=== PATIENT | female | born 1945 | race Caucasian/White ===

== ENCOUNTER → 2018-01-06 01:02 | Outpatient (CLI) | payer MEDICARE, SELFPAY ==
--- NOTE | 2018-01-06 08:55 | DI.REPORT_ITS ---
SYMPTOM/DIAGNOSIS: SCREENING Z12.31 BILATERAL SCREENING MAMMOGRAM: Mammograms were interpreted according to the usual protocol including computer analysis with CAD system, tomosynthesis and C view imaging. Comparison is made with exams from 2012 through 2017. The breasts are composed of scattered fibroglandular densities, category B. There are no suspicious masses or suspicious microcalcifications. There has been no significant change. IMPRESSION: Category 1-B, negative mammogram. Routine screening is recommended. [facility] ASSESSMENT OF FINDINGS: Negative. Category 1. Patient will receive a letter notifying them of these results. BI-RADS category B. There are scattered areas of fibroglandular density.
== END ==
PROVIDERS: PCP Family Medicine; Visit Provider Family Medicine
DX: Z12.31 Encounter for screening mammogram for malignant neoplasm of breast (principal)
CPT/HCPCS: 77063; 77067

== ENCOUNTER 2018-11-11 10:36 | Outpatient (CLI) | payer MEDICARE, OTHER, SELFPAY ==
[2018-11-11 13:15] LABS: ALT 28 U/L (12-78); AST 34 U/L (15-37); Albumin 3.5 g/dL (3.4-5.0); Alkaline Phosphatase 106 U/L (46-116); Anion Gap 9.6 mmol/L (3-11); BUN 18 mg/dL (7-18); Bilirubin, Total 0.6 mg/dL (0.2-1.0); CO2 26.4 mmol/L (21.0-32.0); Calcium 8.7 mg/dL (8.5-10.1); Chloride 109 mmol/L (98-107); Glucose 73 mg/dL (70-100); Potassium 4.1 mmol/L (3.5-5.1); Sodium 145 mmol/L (136-145); TSH (W/Ref FT4) 0.95 uIU/mL (0.358-3.74); Total Protein 6.3 g/dL (6.4-8.2)
[2018-11-11 14:24] LABS: Calculated LDL 104; Cholesterol 172 mg/dL (50-200); HDL Cholesterol 55 mg/dL (40-60); Triglyceride 66 mg/dL (30-150)
== END 2018-11-11 10:56 ==
PROVIDERS: PCP Family Medicine; Visit Provider Family Medicine
DX: E03.9 Hypothyroidism, unspecified (principal); I10 Essential (primary) hypertension
CPT/HCPCS: 36415; 80053; 80061; 83721; 84443

== ENCOUNTER 2019-01-07 06:50 | Outpatient (CLI) | payer MEDICARE, OTHER, SELFPAY ==
--- NOTE | 2019-01-07 09:00 | DI.MAMMO_ITS ---
SYMPTOM/DIAGNOSIS: SCREENING, Z12.31 MAMMOGRAMS: Mammograms were interpreted according to the usual protocol including computer analysis with CAD system, tomosynthesis and C view imaging. The breasts are of moderate density with fairly symmetrical distribution of fibroglandular tissue. No dominant mass or clumped microcalcification is identified in either breast. The current examination is compared with previous examinations including 12/2017 and there has been no gross interval change in appearance in comparison with the previous studies. CONCLUSION: No specific evidence of malignancy at this time. Routine screening examinations are suggested at yearly intervals in this age group according to the ACS/ACR guidelines. Category 1. Breast density, Category B. [facility] ASSESSMENT OF FINDINGS: Negative. Category 1. Patient will receive a letter notifying them of these results. BI-RADS category B. There are scattered areas of fibroglandular density.
== END 2019-01-07 07:10 ==
PROVIDERS: PCP Family Medicine; Visit Provider Family Medicine
DX: Z12.31 Encounter for screening mammogram for malignant neoplasm of breast (principal)
CPT/HCPCS: 77063; 77067

== ENCOUNTER 2019-11-11 02:37 | Outpatient (CLI) | payer MEDICARE, OTHER, SELFPAY ==
[2019-11-11 12:45] LABS: ALT 23 U/L (14-59); AST 33 U/L (15-37); Albumin 3.7 g/dL (3.4-5.0); Alkaline Phosphatase 98 U/L (46-116); Anion Gap 7.3 mmol/L (3-11); BUN 18 mg/dL (7-18); Bilirubin, Total 0.8 mg/dL (0.2-1.0); CO2 28.7 mmol/L (21.0-32.0); CREATININE 0.99 mg/dL (0.55-1.02); Calcium 8.7 mg/dL (8.5-10.1); Calculated LDL 96 mg/dL (<100); Chloride 108 mmol/L (98-107); Cholesterol 167 mg/dL (<200); Estimated GFR 54.68 (mL/min/1.73m2); Glucose 71 mg/dL (74-106); HDL Cholesterol 51 mg/dL (40-60); Sodium 144 mmol/L (136-145); TSH (W/Ref FT4) 1.14 uIU/mL (0.36-3.74); Total Protein 6.2 g/dL (6.4-8.2); Triglyceride 102 mg/dL (<150)
== END 2019-11-11 02:57 ==
PROVIDERS: PCP Family Medicine; Visit Provider Nurse Practitioner
DX: I25.10 Atherosclerotic heart disease of native coronary artery without angina pectoris (principal); I48.91 Unspecified atrial fibrillation; L98.9 Disorder of the skin and subcutaneous tissue, unspecified
CPT/HCPCS: 36415; 80053; 80061; 84443

== ENCOUNTER 2020-01-14 02:24 | Outpatient (CLI) | payer MEDICARE, OTHER, SELFPAY ==
--- NOTE | 2020-01-14 07:45 | DI.DEXA_ITS ---
EXAM: XR DEXA BONE DENSITY W/WO CHEMA CLINICAL HISTORY: osteoporosis,m81.0 TECHNIQUE: COMPARISON: No exams were available for comparison FINDINGS: DEXA scan was performed according to the usual protocol. Please see the accompanying data sheets. Findings for left hip scanning are T-score 0.6 with left femoral neck T-score 0.1. Prior scan of November 2007 showed left hip T-score 0.9. Lumbar spine scanning shows T-score 1.0, prior study of 2007 showed lumbar T-score 0.3. Left forearm scanning shows T-score -1.7. IMPRESSION: Findings consistent with osteopenia according to the WHO criteria. The lateral vertebral scanogram s hows no evidence of a vertebral compression fracture. RADIATION DOSE DELIVERED: Total DLP
--- NOTE | 2020-01-14 16:17 | DI.MAMMO_ITS ---
EXAM: MAMMO SCREENING CLINICAL HISTORY: screening,z12.39 TECHNIQUE: Mammograms were interpreted according to the usual protocol including computer analysis w [employer] CAD system, tomosynthesis and C-view imaging. COMPARISON: FINDINGS: Breasts are of moderate density with fairly symmetrical distribution of fibroglandular tissue. No do minant mass or clumped microcalcification is identified in either breast. The current examination is compared with prior studies including December 2018 and there has been no gross interval change in remy earance in comparison with the prior studies. IMPRESSION: No specific evidence of malignancy at this time. Routine screening examinations are suggested at yea rly intervals in this age group according to the ACS ACR guidelines. BI-RADS Category 1 - Negative Breast Density - Category B - Scattered areas of fibroglandular density
== END 2020-01-14 02:44 ==
PROVIDERS: PCP Family Medicine; Visit Provider Family Medicine
DX: Z12.31 Encounter for screening mammogram for malignant neoplasm of breast (principal); M85.88 Other specified disorders of bone density and structure, other site; M85.832 Other specified disorders of bone density and structure, left forearm
CPT/HCPCS: 77063; 77067; 77080

== ENCOUNTER 2020-11-17 10:07 | Outpatient (REF) | payer MEDICARE, OTHER, SELFPAY ==
[2020-11-17 13:10] LABS: ALT 30 U/L (14-59); AST 36 U/L (15-37); Albumin 3.8 g/dL (3.4-5.0); Alkaline Phosphatase 104 U/L (46-116); Anion Gap 10.9 mmol/L (3-11); BUN 20 mg/dL (7-18); CO2 24.1 mmol/L (21.0-32.0); CREATININE 0.9 mg/dL (0.55-1.02); Calcium 8.7 mg/dL (8.5-10.1); Chloride 109 mmol/L (98-107); Glucose 86 mg/dL (74-106); Sodium 144 mmol/L (136-145); TSH (W/Ref FT4) 1.41 uIU/mL (0.36-3.74); Total Protein 6.5 g/dL (6.4-8.2)
== END 2020-11-17 10:08 | disposition home or self-care (01) ==
LOC: LBN 10:07
PROVIDERS: PCP Family Medicine; Visit Provider Family Medicine
DX: E03.9 Hypothyroidism, unspecified (principal); I48.91 Unspecified atrial fibrillation
CPT/HCPCS: 80053; 84443

== ENCOUNTER 2021-06-16 20:01 | Emergency (ER) | payer MEDICARE, OTHER, SELFPAY ==
[2021-06-16 20:14] VITALS: BP 139/55; PULSE 64; RESP 19; TEMP 36.5; O2SAT 97
--- NOTE | 2021-06-16 20:15 | DI.CT_ITS ---
Exam(s) CT NECK WO EXAM: CT NECK WO CLINICAL HISTORY: FB throat, swallowed plastic shoe stitcher.. TECHNIQUE: Imaging Protocol: Axial computed tomography images with coronal and sagittal reformatted images were created and reviewed CONTRAST MATERIAL: Intravenous: Noncontrast Oral: no COMPARISON: CT CERVICAL SPINE WITHOUT CONTRA from 09/08/2017 FINDINGS: Images include from above the sinuses through the mid to distal esophagus. Parotids/submandibular normal. Enlarged nodular thyroid. Lymphadenopathy: There is scattered lymph nodes seen along the level one to level three all measurin g less than 8 mm in short axis diameter which are physiologic in nature. Mildly dilated distal esopha gianna with some fluid. Bones: Degenerative changes throughout. Soft tissues: No foreign body visible. The floor the mouth is unremarkable. The epiglottis and vocal cords are within normal limits. Images through both lung apices are unremarkable. IMPRESSION: No visible foreign body. Enlarged multinodular thyroid. RADIATION DOSE DELIVERED: 743.2mGy.cm Total DLP DATA REPOSITORY: All CT scans at this facility are submitted to the National Radiology Data Registry (NRDR) Dose Index Registry (DIR) with the [employer] (ACR). RADIATION OPTIMIZATION: All CT scans at this facility use at least one of these dose optimization te chniques: automated exposure control; mA and/or kV adjustment per patient size (includes targeted exa ms where dose is matched to clinical indication); or iterative reconstruction.
--- NOTE | 2021-06-16 20:24 | ED.GENADUL_ITS ---
Discharge Plan Disposition Patient Disposition: HOME Condition: Improving Discharge Details Clinical Impression: Foreign body of throat Primary Care Provider: Jennifer Gagnon ED Provider: Maxwell Singleton Home Meds and New Rx's Prescriptions: Continued oxybutynin chloride 10 mg tablet extended release 24hr 10 mg PO DAILY Qty: 90 RF: 6 atorvastatin 10 mg tablet 10 mg PO QPM Qty: 90 RF: 4 levothyroxine [Synthroid] 50 mcg tablet 50 mcg PO DAILY Qty: 90 RF: 4 metoprolol succinate [Toprol XL] 50 mg tablet extended release 24 hr 50 mg PO DAILY Qty: 90 RF: 4 omeprazole 20 mg capsule,delayed release(DR/EC) 20 mg PO DAILY Qty: 90 RF: 12 aspirin 81 MG tablet,delayed release (DR/EC) 81 mg PO DAILY RF: 0 nitroglycerin [Nitrostat] 0.4 MG tablet, sublingual 0.4 mg Sublingual DIRECTED Qty: 25 RF: 4 meclizine 25 MG tablet 25 mg PO TID PRNQty: 90 RF: 12 Discharge Instructions Instructions: Esophageal Foreign Body (ED) Additional Instructions: Please observe your stool for passage of the foreign body. May resume a regular diet. Return if you develop a fever, vomiting, abdominal bloating or severe pain, or any other acute concerns. Medical Decision Making 76-year-old female was performing chika and using a stitching machine feeder or offbearer. She swallowed the plastic 6 marker and now feels it stuck in her upper throat. She has not been drooling. No difficulty breathing. She has otherwise been well. She she will have a question of rhinorrhea and possible exposure to Covid. Therefore a screening send out COVID-19 test was obtained. Patient given fluids by mouth. Referred for noncontrast CT imaging of the neck. No retained foreign body is appreciated. Case discussed with Dr. Mcbride. She recommends oral lidocaine, ongoing observation, return as needed for worsening. Likely the patient will pass the foreign body without difficulty. HPI General Mode of arrival: ambulatory . Date/Time Provider Initiated Documentation: 06/16/21 20:07 . Limitations to Documentation: no limitations . Information obtained by: patient . History of Present Illness 76 year old F presents to the emergency department with the chief complaint of Foreign body throat, described as moderate, Quality is described as dull, Patient reports no radiation. Patient started experiencing this hour(s) and it has been constant. No relieving factors improve symptom(s), No exacerbating factors reported . Patient notes denies nausea/vomiting and shortness of breath. Patient did receive the following treatments prior to arrival, none Related Data Home Medications Medication Instructions Recorded Confirmed aspirin 81 mg PO DAILY tab-cap 10/10/12 06/16/21 nitroglycerin [Nitrostat] 0.4 mg SUBLINGUAL DIRECTED #25 01/12/13 06/16/21 tab-cap meclizine 25 mg PO TID PRN #90 tab-cap 11/07/17 06/16/21 oxybutynin chloride 10 mg 10 mg PO DAILY #90 tab 11/17/20 06/16/21 tablet,extended release 24 hr atorvastatin 10 mg tablet 10 mg PO QPM #90 tab 05/23/21 06/16/21 levothyroxine 50 mcg tablet 50 mcg PO DAILY #90 tab-cap 05/23/21 06/16/21 metoprolol succinate 50 mg 50 mg PO DAILY #90 tab-cap 05/23/21 06/16/21 tablet,extended release 24 hr omeprazole 20 mg capsule,delayed 20 mg PO DAILY #90 tab-cap 05/23/21 06/16/21 release Previous Rx's Medication Instructions Recorded oxybutynin chloride 10 mg 10 mg PO DAILY #90 tab 11/17/20 tablet,extended release 24 hr atorvastatin 10 mg tablet 10 mg PO QPM #90 tab 05/23/21 levothyroxine 50 mcg tablet 50 mcg PO DAILY #90 tab-cap 05/23/21 metoprolol succinate 50 mg 50 mg PO DAILY #90 tab-cap 05/23/21 tablet,extended release 24 hr omeprazole 20 mg capsule,delayed 20 mg PO DAILY #90 tab-cap 05/23/21 release Allergies Allergy/AdvReac Type Severity Reaction Status Date / Time adhesive AdvReac Intermediate flipped Verified 06/16/21 20:16 out pain meds AdvReac Uncoded 06/16/21 20:16 General Stated Complaint: ThroatFB IVANNA: 3 Review of Systems Narrative: 6 systems reviewed and otherwise negative PFSH All Active Problems (Updated 06/16/21 @ 21:27 by Maxwell Singleton MD) Foreign body of throat (Acute) Weight loss (Acute) Peptic reflux disease (Chronic 09/10/13) Incontinence in female (Chronic 09/22/15) UNABLE TO TOLERATE MEDICATION Hypothyroidism (Chronic) H/O goiter Atrial fibrillation (Chronic) paroxysmal; controlled on dilt.; advised no coumadin or EPS 03/25 Atherosclerosis of lower [place] coronary artery (Chronic) NV at age 31 (?OC's); echo 03/25 ([facility]) EF 65%; MPI 2003-neg/2006-neg. 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 Seeing Ortiz Skin lesions ST elevation (STEMI) myocardial infarction Unspecified fall, subsequent encounter 09/12/17 Vertigo RECURRENT Surgical History Appendectomy History of appendectomy Hx of appendectomy S/P tonsillectomy Status post tonsillectomy Tonsillectomy Family History Mother , 78 Heart disease Mental disorder [place]ZHEIMERS Stroke Father , 93 Heart disease Stroke Sister , 81 Cancer Brother , 72 No problems noted. Maternal Grandfather No problems noted. Paternal Grandfather No problems noted. Maternal Grandmother Heart disease Paternal Grandmother Cancer Brother Asthma Daughter No problems noted. Daughter Substance abuse Depression Sister No problems noted. Sister Throat cancer Social History (Updated 11/19/20 @ 10:10 by Agatha Peralta) Smoking/Tobacco Use Status: Never Second Hand Exposure: Yes Smoking risk assessment performed?: Yes Alcohol Intake: never Drug use: Never Substance use type: does not use Caregiver/Support person: No Household members: spouse Communication Needs: None Do you need help understanding health information?: Rarely Pets and animals: Yes Pets and animals: cat(s) Sexually active: No Do you think of yourself as: straight/heterosexual Current gender identity: female What is your relationship status?: How often do you attend orthodoxy or restorationist services?: 1-3 times per year Panel score (0-1 are the most socially isolated patients): 1 What type of physical activity do you participate in: walking Duration: 60-90 minutes/day Frequency: 5-6 times per week Special daniel needs: No Seatbelt use: always Drive intox or ride w/intox tram driver: No Do you feel safe at home: Yes Do you feel safe in your relationship?: Yes Exam Narrative Exam Narrative: GEN: awake, alert, oriented 3. Pleasant, well groomed, interactive. HEAD: Normocephalic, atraumatic ENT: Mucous membranes moist, oropharynx unremarkable, External ear exam unremarkable EYES: PERRL, EOMI NECK: Full ROM, no DMITRIY, no menigismus CHEST/RESP: Nontender, clear to auscultation bilateral, no wheeze/rhonchi/rales CARDIOVASCULAR: RRR, no murmur, rub tayler. 2+ Rad pulse bilateral ABDOMEN: Soft, nontender, no mass. +Bowel sounds EXT: Full ROM, no edema, no rash Neuro: Grossly normal neurologic exam, conversant, interactive. Psych: Speech fluent, thoughts congruent, affect normal Course Vital Signs Vital signs: Vital Signs Temperature 36.5 C 06/16/21 20:14 Pulse 64 06/16/21 20:14 Respiratory Rate 19 06/16/21 20:14 Blood Pressure 139/55 L 06/16/21 20:14 Pulse Oximetry 97 06/16/21 20:14 Temperature 36.5 C 06/16/21 20:14 Temperature Source Temporal Artery Scan 06/16/21 20:14 Pulse 64 06/16/21 20:14 Respiratory Rate 19 06/16/21 20:14 Respiratory Effort Non-Labored 06/16/21 20:17 Respiratory Pattern Normal 06/16/21 20:17 Blood Pressure 139/55 L 06/16/21 20:14 Pulse Oximetry 97 06/16/21 20:14 Pain Level 0 06/16/21 20:14
--- NOTE | 2021-06-16 21:22 | DI.VRAD_ITS ---
PROCEDURE INFORMATION: Exam: CT Neck Without Contrast Exam date and time: 06/16/2021 8:30 PM Age: 76 years old Clinical indication: Patient HX: Fb throat, swallowed a plastic hemmer chainstitch TECHNIQUE: Imaging protocol: Computed tomography images of the neck without contrast. Radiation optimization: All CT scans at this facility use at least one of these dose optimization techniques: automated exposure control; mA and/or kV adjustment per patient size (includes targeted exams where dose is matched to clinical indication); or iterative reconstruction. COMPARISON: CT CERVICAL SPINE WITHOUT CONTRA 09/08/2017 10:43 AM FINDINGS: Limitations: Full evaluation is suboptimal without intravenous contrast. Orbital cavity: Status post bilateral lens replacement surgery. Nasopharynx: Unremarkable. Oropharynx: Unremarkable. No significant tonsillar enlargement. Hypopharynx: Unremarkable. Larynx: Unremarkable. Normal epiglottis. Retropharyngeal space: Unremarkable. Submandibular/Parotid glands: Normal. Glands are normal in size. Thyroid: Diffuse enlargement of the thyroid gland, with somewhat ill-defined nodular component of the posteroinferior right lower lobe extending to the upper mediastinum measuring up to 2.0 cm. Lymph nodes: Unremarkable. No lymphadenopathy. Trachea: Visualized trachea is unremarkable. Lungs: Unremarkable as visualized. Esophagus: The visualized thoracic esophagus is mildly patulous and partially fluid-filled. A foreign body is not identified, however the presence of fluid in the esophagus may obscure a non radiopaque foreign body. Bones/joints: Diffuse degenerative changes of the cervical spine. No aggressive osseous lesion is identified. Vasculature: Calcified plaque at the left internal carotid artery origin. Soft tissues: There is no retained foreign body in the neck identified. IMPRESSION: 1. No retained foreign body is appreciated. 2. Diffuse thyroid enlargement, with multinodular appearance. Further evaluation with nonemergent ultrasound is recommended. Dictated and Authenticated by: Isael Jj MD. Ordering:MARIE Arreola MD
[2021-06-16 21:42] VITALS: BP 139/55; PULSE 64; O2SAT 97
[2021-06-18 12:15] LABS: COVID-19 RT-PCR UVMMC Result Negative (Negative)
== END 2021-06-16 21:42 | disposition home or self-care (01) ==
PROVIDERS: Emergency Provider Emergency Medicine; PCP Family Medicine
DX: T17.298A Other foreign object in pharynx causing other injury, initial encounter (principal); X58.XXXA Exposure to other specified factors, initial encounter; J34.89 Other specified disorders of nose and nasal sinuses; Z20.822 Contact with and (suspected) exposure to COVID-19
CPT/HCPCS: 99283; 99284; U0003; U0005; 70490

== ENCOUNTER → 2021-09-15 16:22 | Outpatient (CLI) | payer MEDICARE, OTHER, SELFPAY ==
--- NOTE | 2021-09-15 12:30 | DI.CT_ITS ---
Exam(s) CT ABDOMEN PELVIS W EXAM: CT ABDOMEN PELVIS W CLINICAL HISTORY: RLQ abd discomfort, recurrent diarrhea episodes R19.7 R10.31. TECHNIQUE: Imaging Protocol: Axial computed tomography images with coronal and sagittal reformatted images were created and reviewed CONTRAST MATERIAL: Intravenous: Omnipaque 350 Contrast volume:100 ml Oral: yes COMPARISON: No exams were available for comparison FINDINGS: ABDOMEN: Lung Bases: Normal where visualized. Heart is enlarged. Contrast in lower esophagus which may indica te reflux. Liver: Normal density. No measurable mass. Gallbladder and biliary tract: No radiodense calculus or dilation. Pancreas: Normal density, no abnormal calcifications or inflammatory process. Spleen: Normal. Kidneys: Normal size, contour and axis. No radiodense stones or obstructive uropathy. No masses seen. Adrenal glands: No masses seen. Abdominal Aorta: Abdominal portion non-dilated. Mild atherosclerotic changes. No hernias abuts a PELVIS: Bladder: No gross wall thickening. No calculi.No focal mass. Bowel: Normal quantity of stool. Diverticulosis. No evidence of diverticulitis. No obstruction or bowel wall thickening. Appendix not seen.. Peritoneal cavity: No ascites, collection or mesenteric inflammatory response. Bones: Bilateral L5 spondylolysis and mild L5-S1 spondylolisthesis. Severe degenerative disc changes at at multiple levels. Scoliosis. Reproductive organs: Within normal limits. Lymph nodes: Unremarkable. Impression: Diverticulosis. No evidence of diverticulitis. Contrast in the distal esophagus could indicate gastroesophageal reflux. RADIATION DOSE DELIVERED: 898.44mGy.cm Total DLP DATA REPOSITORY: All CT scans at this facility are submitted to the National Radiology Data Registry (NRDR) Dose Index Registry (DIR) with the [employer] (ACR). RADIATION OPTIMIZATION: All CT scans at this facility use at least one of these dose optimization te chniques: automated exposure control; mA and/or kV adjustment per patient size (includes targeted exa ms where dose is matched to clinical indication); or iterative reconstruction.
[2021-09-15 13:55] LABS: Abs Immature Grans 0.01 10^3/uL (0.0-0.06); Absolute Basophil Count 0.06 10^3/uL (0.0-0.2); Absolute Eosinophil Count 0.16 10^3/uL (0.0-0.7); Absolute Lymphocyte Count 1.64 10^3/uL (1.2-3.4); Absolute Monocyte Count 0.47 10^3/uL (0.1-0.8); Absolute Neutrophil Count 2.67 10^3/uL (1.2-6.7); Basophils % 1.2; Eosinophils % 3.2; HCT 39.6 % (36.0-46.0); HGB 13.1 g/dL (11.2-15.7); Immature Grans % 0.2; Lymphocytes % 32.7; MCH 30.4 pg (27.0-33.0); MCHC 33.1 % (32.0-36.0); MCV 92 fL (80-95); MPV 9.5 fL (8.0-11.0); Monocytes % 9.4; Neutrophils % 53.3; Platelet Count 163 10^3/uL (130-400); RBC 4.31 10^6/uL (3.93-5.22); RDW 12.9 % (11.7-14.6); RDW-SD 43.2 fL; WBC 5.01 10^3/uL (4.4-10.8)
[2021-09-15 14:16] LABS: ALT 26 U/L (14-59); AST 30 U/L (15-37); Albumin 3.8 g/dL (3.4-5.0); Alkaline Phosphatase 110 U/L (46-116); Anion Gap 8.5 mmol/L (3-11); BUN 16 mg/dL (7-18); Bilirubin, Total 0.9 mg/dL (0.2-1.0); CO2 26.5 mmol/L (21.0-32.0); Calcium 8.7 mg/dL (8.5-10.1); Chloride 107 mmol/L (98-107); Estimated GFR 53.76 (mL/min/1.73m2); Glucose 89 mg/dL (74-106); Lipase 83 U/L (73-393); Potassium 3.9 mmol/L (3.5-5.1); Sodium 142 mmol/L (136-145); TSH (W/Ref FT4) 1.31 uIU/mL (0.36-3.74); Total Protein 6.9 g/dL (6.4-8.2)
[2021-09-15 14:27] LABS: Calculated LDL 103 mg/dL (<100); Cholesterol 182 mg/dL (<200); HDL Cholesterol 59 mg/dL (40-60); Triglyceride 102 mg/dL (<150)
[2021-09-15] MEDS: Omnipaque 350 MG/ML 50 ML BTL PO (14:29)
[2021-09-15 15:28] LABS: Bilirubin Negative (Negative); Blood Negative (Negative); Clarity Clear (Clear); Glucose Negative (Negative); Ketones Negative (Negative); Leukocyte Esterase Trace (Negative); Nitrite Negative (Negative); Urobilinogen 0.2 EU/dL (Up TO 0.2); pH 5.5 (5-8)
[2021-09-15] MEDS: Omnipaque 350 MG/ML 100 ML BTL IV (15:31)
[2021-09-15 15:34] LABS: Bacteria Negative HPF (Negative); C & S Indicated? No; Casts Negative LPF (Negative); Crystals Negative HPF (Negative); Epithelial Cells Few HPF (Negative); Mucus Negative (Negative); RBC 0-2 HPF (0-2)
== END ==
PROVIDERS: PCP Family Medicine; Visit Provider Family Medicine
DX: R10.31 Right lower quadrant pain (principal); R19.7 Diarrhea, unspecified; E03.9 Hypothyroidism, unspecified; I25.10 Atherosclerotic heart disease of native coronary artery without angina pectoris; I48.91 Unspecified atrial fibrillation; R30.0 Dysuria; K21.9 Gastro-esophageal reflux disease without esophagitis; K57.30 Diverticulosis of large intestine without perforation or abscess without bleeding
CPT/HCPCS: 80053; 80061; 83690; 74177; 81003; 81015; 84443; 85025; J3490; Q9967

== ENCOUNTER → 2021-10-02 02:22 | Outpatient (CLI) | payer MEDICARE, OTHER, SELFPAY ==
--- NOTE | 2021-10-02 07:15 | DI.RAD_ITS ---
Exam(s) XR KNEE RT 3V AP,LAT,ALFREDITO EXAM: XR KNEE RT 3V AP,LAT,ALFREDITO CLINICAL HISTORY: right knee pain,m25.561. TECHNIQUE: 2D digital imaging was performed of the right knee. Three views obtained. AP, lateral an d PA tunnel views were obtained. COMPARISON: No previous for comparison. FINDINGS: BONES: No acute fracture is present. No bony destructive lesion is seen. JOINTS: Moderate narrowing in the medial femoral tibial joint space is noted. There is periarticular spurring in all 3 joint compartments. No joint effusion is seen. SOFT TISSUE: Normal. IMPRESSION: Mild degenerative changes of the right knee. DATA REPOSITORY: RADIATION DOSE DELIVERED:
== END ==
PROVIDERS: PCP Family Medicine; Visit Provider Family Medicine
DX: M25.561 Pain in right knee (principal)
CPT/HCPCS: 73562

== ENCOUNTER 2021-10-14 08:41 | Outpatient (REF) | payer MEDICARE, OTHER, SELFPAY ==
[2021-10-14 09:52] LABS: C Diff PCR Negative (Negative)
== END 2021-10-14 08:42 | disposition home or self-care (01) ==
LOC: LBN 08:41
PROVIDERS: PCP Family Medicine; Visit Provider Family Medicine
DX: R19.7 Diarrhea, unspecified (principal)
CPT/HCPCS: 87329; 87493

== ENCOUNTER 2022-07-04 01:33 | Outpatient (CLI) | payer MEDICARE, SELFPAY ==
[2022-07-04 13:01] LABS: ALT 18 U/L (14-59); AST 30 U/L (15-37); Albumin 3.6 g/dL (3.4-5.0); Alkaline Phosphatase 116 U/L (46-116); Anion Gap 7.3 mmol/L (3-11); BUN 18 mg/dL (7-18); Bilirubin, Total 0.7 mg/dL (0.2-1.0); CO2 29.7 mmol/L (21.0-32.0); Calcium 8.9 mg/dL (8.5-10.1); Chloride 106 mmol/L (98-107); Estimated GFR 57.66 (mL/min/1.73m2); Glucose 92 mg/dL (74-106); Potassium 3.8 mmol/L (3.5-5.1); Sodium 143 mmol/L (136-145); TSH (W/Ref FT4) 1.62 uIU/mL (0.36-3.74); Total Protein 6.8 g/dL (6.4-8.2); Vitamin B12 355 pg/mL (193-986)
== END 2022-07-04 01:34 | disposition home or self-care (01) ==
LOC: LOS 01:34
PROVIDERS: PCP Family Medicine; Visit Provider Family Medicine
DX: E03.9 Hypothyroidism, unspecified (principal); G62.9 Polyneuropathy, unspecified
CPT/HCPCS: 36415; 80053; 82607; 84443

== ENCOUNTER 2023-07-12 01:04 | Outpatient (CLI) | payer MEDICARE, SELFPAY ==
[2023-07-12 12:41] LABS: ALT 22 U/L (14-59); AST 28 U/L (15-37); Albumin 3.5 g/dL (3.4-5.0); Alkaline Phosphatase 103 U/L (46-116); BUN 20 mg/dL (7-18); CREATININE 1.1 mg/dL (0.55-1.02); Chloride 107 mmol/L (98-107); Estimated GFR 51.11 (mL/min/1.73m2); Glucose 106 mg/dL (74-106); Potassium 3.9 mmol/L (3.5-5.1); Sodium 144 mmol/L (136-145); TSH (W/Ref FT4) 1.67 uIU/mL (0.36-3.74); Total Protein 6.8 g/dL (6.4-8.2)
== END 2023-07-12 01:05 | disposition home or self-care (01) ==
LOC: LOS 01:04
PROVIDERS: PCP Family Medicine; Visit Provider Family Medicine
DX: I10 Essential (primary) hypertension (principal)
CPT/HCPCS: 36415; 80053; 84443

== ENCOUNTER 2024-03-10 13:34 | Outpatient (CLI) | payer MEDICARE, SELFPAY ==
--- NOTE | 2024-03-10 13:30 | RT.EKG_ITS ---
APPROVED REPORT Exam: Resting ECG Reason for Exam: Palpitations Patient Location: O HR:47 bpm ECG Measurements Heart Rate 47 AXIS [place] 182 P 44 QRSd 92 QRS 12 QT 486 T 47 QTc 430 Conclusion Sinus bradycardia...rate< 50 Borderline T abnormalities, anterior leads...T flat or neg, V2-V4
== END 2024-03-10 13:35 | disposition home or self-care (01) ==
LOC: DI.CM 13:35
PROVIDERS: PCP Family Medicine; Visit Provider Family Medicine
DX: R00.2 Palpitations (principal)
CPT/HCPCS: 93010

== ENCOUNTER 2024-03-16 13:10 | Outpatient (CLI) | payer MEDICARE, SELFPAY ==
--- NOTE | 2024-04-02 09:24 | W.CARDEVENT ---
Date of service: 04/02/24 Time of Service: 09:24 Cardiac Event Recorder Referring Provider:: Jennifer Gagnon Indications:: Palpitations Cardiac Event Note: This is a cardiac event monitor. Patient was monitored for 10 days and 6 hours Predominant rhythm was sinus with an average heart rate of 60. Minimum was 42, maximum 105 There were rare ventricular ectopic beats, several couplets, rare triplets There were occasional atrial premature beats. Self-limited atrial runs occurred. The longest of these was 14 beats in duration There was no atrial fibrillation no high-grade AV block, no pauses greater than 3 seconds Symptoms were reported. These correlated with sinus rhythm in the 70s and 80s, also sinus tachycardia 105/min
== END 2024-03-16 13:11 | disposition home or self-care (01) ==
LOC: CARDOPNVT 13:10
PROVIDERS: PCP Family Medicine; Visit Provider Family Medicine
DX: R00.2 Palpitations (principal); I49.1 Atrial premature depolarization
CPT/HCPCS: 93246

== ENCOUNTER 2024-03-16 15:15 | Outpatient (CLI) | payer MEDICARE, SELFPAY ==
[2024-03-16 14:18] LABS: HCT 40.6 % (36.0-46.0); HGB 13.2 g/dL (11.2-15.7); MCH 30.2 pg (27.0-33.0); MCHC 32.5 % (32.0-36.0); MCV 93 fL (80-95); MPV 9.4 fL (8.0-11.0); Platelet Count 152 10^3/uL (130-400); RBC 4.37 10^6/uL (3.93-5.22); RDW 12.8 % (11.7-14.6); RDW-SD 44.2 fL
[2024-03-16 15:15] LABS: ALT 20 U/L (14-59); AST 29 U/L (15-37); Albumin 3.5 g/dL (3.4-5.0); Alkaline Phosphatase 120 U/L (46-116); Anion Gap 8.6 mmol/L (3-11); BUN 21 mg/dL (7-18); Bilirubin, Total 0.81 mg/dL (0.2-1.0); CO2 29.4 mmol/L (21.0-32.0); Chloride 108 mmol/L (98-107); Estimated GFR 57.31 (mL/min/1.73m2); Glucose 95 mg/dL (74-106); Potassium 4.3 mmol/L (3.5-5.1); Sodium 146 mmol/L (136-145); TSH (W/Ref FT4) 1.14 uIU/mL (0.36-3.74); Total Protein 6.8 g/dL (6.4-8.2); Vitamin B12 279 pg/mL (193-986)
== END 2024-03-16 15:16 | disposition home or self-care (01) ==
LOC: LBO 15:17
PROVIDERS: PCP Family Medicine; Visit Provider Family Medicine
DX: K21.9 Gastro-esophageal reflux disease without esophagitis (principal); I10 Essential (primary) hypertension; E03.9 Hypothyroidism, unspecified; R00.2 Palpitations
CPT/HCPCS: 36415; 80053; 85027; 93246; 82607; 84443

== ENCOUNTER 2024-05-08 08:26 | Emergency (ER) | payer MEDICARE, SELFPAY ==
[2024-05-08] VITALS (25 sets, daily range): BP systolic 102–144; BP diastolic 30–61; PULSE 55–73; RESP 12–35; TEMP 36.2–36.4; O2SAT 95–99
--- NOTE | 2024-05-08 08:15 | RT.EKG_ITS ---
APPROVED REPORT Exam: Resting ECG Reason for Exam: Palpatations Patient Location: E HR:64 bpm ECG Measurements Heart Rate [address] 195 P 36 QRSd 89 QRS 19 QT 418 T -4 QTc 430 Conclusion Sinus rhythm...normal P axis, V-rate 60- 99 I have reviewed and interpreted ECG and agree with software generated interpretation.
--- NOTE | 2024-05-08 08:30 | DI.RAD_ITS ---
Exam(s) XR CHEST 2V PA LATERAL EXAM: XR CHEST 2V PA LATERAL CLINICAL HISTORY: cough, eval for pneumonia TECHNIQUE: 2D digital imaging was performed of the chest. Two images were obtained. PA and lateral views were obtained. COMPARISON: CR CHEST 2 VIEWS PA,LAT from 11/26/2016 FINDINGS: MEDIASTINUM: Normal. HEART: Normal. PULMONARY VASCULATURE: Normal. LUNGS: No focal consolidating infiltrates. PLEURAL SPACE: No pleural effusion or pneumothorax. BONE:Within normal limits for the patient's age. OTHER FINDINGS:Normal. IMPRESSION: No acute pulmonary findings. DATA REPOSITORY: RADIATION DOSE DELIVERED:
--- NOTE | 2024-05-08 08:30 | DI.CT_ITS ---
Exam(s) CT HEAD WO EXAM: CT HEAD WO CLINICAL HISTORY: superiorly placed headache, eval for bleed/mass. TECHNIQUE: Imaging Protocol: Axial computed tomography images with coronal and sagittal reformatted images were created and reviewed COMPARISON: CT HEAD WITHOUT CONTRAST from 09/10/2017 FINDINGS: Ventricles and Extra axial spaces: Normal in size and morphology for the patient's age. Hemorrhage: None. Cerebral parenchyma: No evidence of an acute territorial infarct. No mass effect. Midline shift: None. Brainstem/Cerebellum: Normal. Calvarium: Normal. Visualized Paranasal sinuses/Mastoids: Clear. Soft Tissues: Unremarkable. IMPRESSION: No acute intracranial process. RADIATION DOSE DELIVERED: 875.97mGy.cm Total DLP DATA REPOSITORY: All CT scans at this facility are submitted to the National Radiology Data Registry (NRDR) Dose Index Registry (DIR) with the [employer] (ACR). RADIATION OPTIMIZATION: All CT scans at this facility use at least one of these dose optimization te chniques: automated exposure control; mA and/or kV adjustment per patient size (includes targeted exa ms where dose is matched to clinical indication); or iterative reconstruction.
--- OUTSIDE RECORDS SUMMARY | 2024-05-08 08:36 | XMS_ITS | Referral Summary ---
Author Organization [facility] Address [address] [place] [address] Care Team Providers Care Teller Head Name Role Phone Jennifer Gagnon MD Primary Care Provider [phone] Allergies Active Allergy Reactions Criticality Noted Date Comments Oxycodone Dystonic reaction 09/08/2017 Medications atorvastatin (LIPITOR) 40 mg tablet Take 40 mg by mouth daily. Active metoprolol (LOPRESSOR) 50 mg tablet Take 50 mg by mouth daily. Active levothyroxine (SYNTHROID) 50 mcg tablet Take 50 mcg by mouth daily. Active omeprazole (PRILOSEC) 20 mg capsule Take 20 mg by mouth daily. Active oxybutynin (DITROPAN) 5 mg tablet Take 10 mg by mouth daily. Active meclizine (ANTIVERT) 25 mg tablet Take 25 mg by mouth 3 times daily as needed. Active Social History Tobacco Use Types Packs/Day Years Used Date Smoking Tobacco: Never Smokeless Tobacco: Never Alcohol Use Standard Drinks/Week Comments Yes 0 (1 standard drink = 0.6 oz pur e alcohol) rare Interpersonal Safety Answer Date Record ed Physically Hurt Never 12/20/2019 Verbally Threaten Not on file 12/20/2019 Comments Unknown Sex and Gender Information Value Date Recorded Sex Assigned at Not on file Legal Sex Female 18:17 EST Gender Identity Not on file Sexual Orientation Not on file Last Filed Vital Signs Vital Sign Reading Time Taken Comments Blood Pressure 126/52 09/08/20172024 EDT Pulse 78 09/08/20172024 EDT Temperature 37 ??C (98.6 ??F) 09/08/20172024 EDT Respiratory Rate 18 09/08/20172024 EDT Oxygen Saturation 100% 09/08/20172024 EDT Inhaled Oxygen Concentration - - Weight - - Height - - Body Mass Index - - Plan of Treatment Not on file Care Teams Teller Head Relationship Specialty Start Date End Date Jennifer Gagnon MD [address] [place] [id number] PCP - General 04/30/12
--- OUTSIDE RECORDS SUMMARY | 2024-05-08 08:36 | XMS_ITS | Encounter Summary ---
Author Organization [facility] Address [address] [place] [address] Care Team Providers Care Child And Family Services Worker Name Role Phone Unavailable Primary Care Provider Unavailabl e Encounter Details Date Type Department Care Team (Late st Contact Info) Description 10/20/2009 Results Only [facility] Laboratory Services - [facility] [place] [place] [address] [place], [place] [address] Jennifer Gagnon MD [address] [place] [address] [address] [place] [address] Social History Tobacco Use Types Packs/Day Years Used Date Smoking Tobacco: Never Assessed Comments Unknown Sex and Gender Information Value Date Recorded Sex Assigned at Not on file Legal Sex Female 18:17 EST Gender Identity Not on file Sexual Orientation Not on file documented as of this encounter Plan of Treatment Not on file documented as of this encounter Procedures Procedure Name Priority Date/Time Associated Diagnosis Comments HPV DETECTION, HIGH RISK TYPES Routine 10/20/2009 8:32 EDT CYTOPATHOLOGY Routine 10/20/2009 0:00 EDT documented in this encounter Results * HUMAN PAPILLOMA VIRUS DNA TEST (10/20/2009 8:32 EDT) Specimen Description Cervix, ThinPrep vial [facility] Result Negative for HPV types 16, 18, 31, 33, 35, 39, 45, 51, 52, 56, 58, 59, and 68. [facility] Report Status Final 10/31/2009 [facility] 10/20/2009 8:32 EDT 10/27/2009 8:32 EDT us Jennifer Gagnon MD MICROBIOLOGY - GENERAL TONE PIERRE Final Result [facility] [address] [place] [address] * CYTOPATHOLOGY (10/20/2009 0:00 EDT) Pathology Report: CYTOPATHOLOGY REPORT ? Reports generated via electronic interface contain original data; ? however they are lacking the format of the original report. ? Caution should be taken when reading/interpreti ng unformatted reports. ? Name: ? IOANA BECKMAN ? Accession #: ? [id number] ? : ? 1945 (Age: 64) ??F ?Collect Date: ? 10/20/2009 ? Location: ? [facility] ? Receive Date: ? 10/24/2009 ? Provider: ?JENNIFER M DOBBERTIN MD ? Copy to: ? Specimen/Source: ?Pap Test, Endocervix, ThinPrep Imaging System with ? manual evaluation ? Last Menstrual Period: ? 1991 ? Menstrual/Pregnanc y Status: ? Post Menopausal ? Other: ? HPVDX - HPV testing requested regardless of diagnosis on current ThinPrep Pap ?? test. ? SPECIMEN ADEQUACY ? Satisfactory for Evaluation ? - transformation zone component present ? GENERAL CATEGORIZATION ? Negative for Intraepithelial Lesion or Malignancy ? Document reviewed and electronically signed by: ? Caitlin Verville,CT(ASCP) ? Report Date: ??10/26/2009 12:37 ? End of Report ? [facility] 10/20/2009 10/24/2009 us Jennifer Gagnon MD PATHOLOGY ORDERABLES Final Result [facility] [address] [place] [address] documented in this encounter Visit Diagnoses Not on filedocumented in this encounter
--- OUTSIDE RECORDS SUMMARY | 2024-05-08 08:36 | XMS_ITS | Encounter Summary ---
Author Organization [facility] Address [address] [place] [address] Care Team Providers Care Mounted Police Officer Name Role Phone Unavailable Primary Care Provider Unavailabl e Encounter Details Date Type Department Care Team (Late st Contact Info) Description 11/21/2006 Results Only [facility] - Maple conversion [address] [place] [address] Jennifer Gagnon MD [address] [place] [phone] Social History Tobacco Use Types Packs/Day Years [...] Procedure Name Priority Date/Time Associated Diagnosis Comments CYTOPATHOLOGY Routine 11/21/2006 0:00 EDT documented in this encounter Results * CYTOPATHOLOGY (11/21/2006 0:00 EDT) Pathology Report: CYTOPATHOLOGY REPORT Reports generated via electronic interface contain original data; however they are lacking the format of the original report. Caution should be taken when reading/interpreti ng unformatted reports. Name: ? IOANA BECKMAN ? Accession #: ? [id number] : ? 1945 (Age: 61) ??F ?Collect Date: ? 11/21/2006 Location: ? [facility] ? Receive Date: ? 11/25/2006 Provider: ?JENNIFER GAGNON MD Copy to: ? Specimen/Source: ?ThinPrep Pap Test, Endocervix, processed on [employer] ThinPrep Imaging System, with manual evaluation Last Menstrual Period: ? Menstrual/Pregnanc y Status: ? Post Menopausal Other: ? HPVA - HPV testing requested if ASC-US on the current ThinPrep Pap test. ? SPECIMEN ADEQUACY ? Satisfactory for Evaluation - transformation zone component present GENERAL CATEGORIZATION ? Negative for Intraepithelial Lesion or Malignancy ? Document reviewed and electronically signed by: ? DIANN Alonso(ASCP) ? Report Date: ??11/27/2006 13:38 End of Report [facility] 11/21/2006 11/25/2006 us Jennifer Gagnon MD PATHOLOGY ORDERABLES Final Result [facility] [address] [place] [address] documented in this encounter Visit Diagnoses Not on filedocumented in this encounter
--- OUTSIDE RECORDS SUMMARY | 2024-05-08 08:36 | XMS_ITS | Encounter Summary ---
Author Organization [facility] Address [address] [place] [address] Care Team Providers Care Health Safety Coordinator Name Role Phone Jennifer Gagnon MD Primary Care Provider [phone] Encounter Details Date Type Department Care Team (Late st Contact Info) Description 04/28/2012 Results Only [facility] Laboratory Services - [facility] [place] [place] [address] [place] [address] Jennifer Gagnon MD [address] [place] [address] [address] [place] [phone] Social History Tobacco Use Types Packs/Day Years [...] Procedure Name Priority Date/Time Associated Diagnosis Comments SURGICAL PATHOLOGY Routine 04/28/2012 0:00 EST documented in this encounter Results * SURGICAL PATHOLOGY (04/28/2012 0:00 EST) Pathology Report: SURGICAL PATHOLOGY REPORT Reports generated via electronic interface contain original data; however they are lacking the format of the original report. Caution should be taken when reading/interpreti ng unformatted reports. Name: ? IOANA BECKMAN ? Accession #: ? [id number] ? : ? 1945 (Age: 66) ??F ? Collect Date: ? 04/28/2012 ? Location: ? [facility] ? Receive Date: ? 04/30/2012 ? Provider: JENNIFER GAGNON MD Copy to: ? Final Pathologic Diagnosis: ? Skin of breast, punch biopsy: - Superficial fungal infection. ??See comment. Comment: ? The biopsy shows features of superficial fungal infection associated with a moderate degree of inflammation. ??On sections prepared with PAS-amylase stain, fungal hyphae are evident within the stratum corneum. ??The hyphae are most suggestive of dermatophyte species. ??Although candidiasis cannot be entirely excluded, it is less likely given the lack of yeast forms and pseudohyphae. (Dr. Cevallos)/[facility] Microscopic Description: ? Sections consist of a punch biopsy of skin to the deep reticular dermis. The stratum corneum has foci of parakeratosis with entrapped neutrophils and basophilic granular debris. ??The underlying epidermis is of relatively normal thickness. ??There is mild intercellular edema with exocytosis of neutrophils. The underlying dermis has a moderately dense perivascular and interstitial inflammatory infiltrate. ??The infiltrate is composed primarily of small lymphocytes with occasional histiocytes and neutrophils. ??The vessels are congested and there is focal erythrocyte extravasation. ??On sections prepared with PAS-amylase stain, fungal hyphae are evident within this stratum corneum. No definitive yeast forms are identified. ??(Dr. Cevallos)/[facility] Document reviewed and electronically signed by: LAUREL CEVALLOS MD Report ??Date: 05/02/2012 16:10 By the signature above, the attending physician certifies that he/she has personally conducted a gross and/or microscopic examination of the described specimens and rendered or confirmed the above diagnosis. Specimen(s) Received: ? 3.0 mm punch biopsy breasts Clinical History: ? Lissa infection under breasts. ??Did not respond to antifungal & cortisone cream ? Gross Description: ? Received in formalin labelled Ioana Beckman and 3.0 mm punch bx is an ovoid punch biopsy of roy-white skin measuring 0.3 x 0.2 cm in diameter and 0.4 cm in thickness. ??Also received is a 0.3 by less than 0.1 by less than 0.1 cm irregular roy-white tissue fragment. ??The specimen is submitted intact in a single cassette. ??(Gale Maldonado)/[facility] ?? End of Report [facility] 04/28/2012 04/30/2012 10: 07 EST us Jennifer Gagnon MD PATHOLOGY ORDERABLES Final Result Performing Organization Address City/State/[facility] Co de Phone Number [facility] [address] [place] [address] documented in this encounter Visit Diagnoses Not on filedocumented in this encounter Care Teams Health Safety Coordinator Relationship Specialty Start Date End Date Jennifer Gagnon MD [address] [place] [address] [address] [place] [phone] PCP - General 04/30/12 documented as of this encounter
--- OUTSIDE RECORDS SUMMARY | 2024-05-08 08:36 | XMS_ITS | Encounter Summary ---
Author Organization [facility] Address [address] [place] [address] Care Team Providers Care Bucket Pusher Name Role Phone Unavailable Primary Care Provider Unavailabl e Encounter Details Date Type Department Care Team (Late st Contact Info) Description 11/24/2007 Before PRISM Converted Visit (Maple) [facility] - Maple conversion [address] [place] [address] Jennifer Gagnon MD [address] [place] [phone] Social History Tobacco Use Types [...] Comments HPV DETECTION, HIGH RISK TYPES Routine 11/24/2007 7:41 EDT CYTOPATHOLOGY Routine 11/24/2007 0:00 EDT documented in this encounter Results * HUMAN PAPILLOMA VIRUS DNA TEST (11/24/2007 7:41 EDT) Specimen Description Cervix, ThinPrep vial [facility] Result Negative for HPV types 16, 18, 31, 33, 35, 39, 45, 51, 52, 56, 58, 59, and 68. [facility] Report Status Final [id number] [facility] 11/24/2007 7:41 EDT 12/03/2007 7:41 EDT us Jennifer Gagnon MD MICROBIOLOGY - GENERAL TONE PIERRE Final Result [facility] [address] [place] [address] * CYTOPATHOLOGY (11/24/2007 0:00 EDT) Pathology Report: CYTOPATHOLOGY REPORT ? Reports generated via electronic interface contain original data; ? however they are lacking the format of the original report. ? Caution should be taken when reading/interpreti ng unformatted reports. ? Name: ? IOANA BECKMAN ? Accession #: ? [id number] ? : ? 1945 (Age: 62) ??F ?Collect Date: ? 11/24/2007 ? Location: ? [facility] ? Receive Date: ? 11/25/2007 ? Provider: ?JENNIFER M DOBBERTIN MD ? Copy to: ? Specimen/Source: ?ThinPrep Pap Test, Endocervix, processed on [employer] ? ThinPrep Imaging System, with manual evaluation ? Last Menstrual Period: ? MANAGER SUSTAINABILITY ? Other: ? HPVDX - HPV testing requested regardless of diagnosis on current ThinPrep Pap ?? test. ? SPECIMEN ADEQUACY ? Satisfactory for Evaluation ? - transformation zone component present ? GENERAL CATEGORIZATION ? Negative for Intraepithelial Lesion or Malignancy ? Document reviewed and electronically signed by: ? Jaelyn Rajiv, [place](ASCP) ? Report Date: ??12/02/2007 11:18 ? End of Report ? [facility] 11/24/2007 11/25/2007 us Jennifer Gagnon MD PATHOLOGY ORDERABLES Final Result [facility] [address] [place] [address] documented in this encounter Visit Diagnoses Not on filedocumented in this encounter
--- OUTSIDE RECORDS SUMMARY | 2024-05-08 08:36 | XMS_ITS | Clinical Summary ---
Author Organization [facility] Address [address] [place] [address] Care Team Providers Care Fireworks Inspector Name Role Phone Jennifer Gagnon MD Primary Care Provider [phone] Allergies Active Allergy Reactions Criticality Noted Date [...] mouth 3 times daily as needed. Active Medical History Medical History Date Comments Hypertension Hypothyroid High cholesterol Paroxysmal A-fib (HCC-CMS) Social History Tobacco Use Types Packs/Day Years [...] on file Sexual Orientation Not on file Obstetrics History Last Filed Vital Signs Vital Sign Reading Time Taken Comments Blood Pressure 126/52 09/08/20172024 EDT Pulse 78 09/08/20172024 EDT Temperature 37 ??C (98.6 ??F) 09/08/20172024 EDT Respiratory Rate 18 09/08/20172024 EDT Oxygen Saturation 100% 09/08/20172024 EDT Inhaled Oxygen Concentration - - Weight - - Height - - Body Mass Index - - Plan of Treatment Health Maintenance Due Date Last Done Comments Hepatitis C Screen 1945 Fall Risk Screening 2009 RSV Immunization ( o r 60+ Years) (1 - 1-dose 75+ series) 2019 COVID-19 Vaccine (2023- season) 2024 Care Teams Fireworks Inspector Relationship Specialty Start Date End Date Jennifer Gagnon MD [address] [place] [address] [address] [place] [phone] PCP - General 04/30/12
--- OUTSIDE RECORDS SUMMARY | 2024-05-08 08:36 | XMS_ITS | Encounter Summary ---
Author Organization [facility] Address [address] [place] [address] Care Team Providers Care Pipelines Superintendent Name Role Phone Jennifer Gagnon MD Primary Care Provider [phone] Encounter Details Date Type Department Care Team (Late st Contact Info) Description 06/17/[address] [facility] Pathology & Laboratory Medicine - [facility] [address] [place], [place] [phone] Outr Resulting Lab, Provider Social History Tobacco Use Types Packs/Day Years [...] Procedure Name Priority Date/Time Associated Diagnosis Comments ZZCOVID-19 TEST [facility] PCR Today 06/16/2021 20:37 EST COVID-19 TESTING Routine 06/16/2021 20:3 7 EST documented in this encounter Results * COVID-19 TEST [facility] PCR (06/16/2021 20:37 EST) Swab 06/16/2021 20:3 7 EST 06/17/2021 21:50 EST us Provider Outr Resulting Lab MICROBIOLOGY - GENER AL ORDERABLES Final Result [facility] [address] [place] [address] * COVID-19 TESTING (06/16/2021 20:37 EST) COVID-19 rt-PCR Result Negative Negative 06/18/2021 12:09 EST [facility] Comment: This test has not been FDA cleared or approved. This test has been authorized by FDA under an EUA for use by authorized laboratories. This test has been authorized only for detection of nucleic acid from 2019-nCoV, not for any other viruses or pathogens. This test is only authorized for the duration of the declaration that circumstances exist justifying the authorization of emergency use of in vitro diagnostic tests for detection and/or diagnosis of 2019-nCoV under section 564(b)(1) of Act, 21 U.S.C ?? 360bbb-3(b) (1), unless the authorization is terminated or revoked sooner. Negative results do not preclude 2019-nCoV infection and should not be used as the sole basis for treatment or other patient management decisions. Negative results must be combined with clinical observations, patient history, and epidemiological information. Testing was performed using the flavia SARS-CoV-2 assay ([employer] on the Flavia 6800 System Performing Lab Flavia [address] [facility] 06/18/2021 12:09 EST [facility] Swab 06/16/2021 20:3 7 EST 06/17/2021 21:50 EST us Provider Outr Resulting Lab MICROBIOLOGY - GENER AL ORDERABLES Final Result [facility] [address] [place] [address] documented in this encounter Visit Diagnoses Not on filedocumented in this encounter Care Teams Pipelines Superintendent Relationship Specialty Start Date End Date Jennifer Gagnon MD [address] [place] [address] PCP - General 04/30/12 documented as of this encounter
--- OUTSIDE RECORDS SUMMARY | 2024-05-08 08:36 | XMS_ITS | Encounter Summary ---
Author Organization [facility] Address [address] [place] [address] Care Team Providers Care Investigator Utility Bill Complaints Name Role Phone Jennifer Gagnon MD Primary Care Provider [phone] Encounter Details Date Type Department Care Team (Late st Contact Info) Description 10/14/[address] [facility] Pathology & Laboratory Medicine - [address] [phone] Outr Resulting Lab, Provider Social History Tobacco [...] Procedure Name Priority Date/Time Associated Diagnosis Comments GIARDIA AND CRYPTOSPORIDIUM ANTIGENS Routine 10/14/2021 5:35 EDT documented in this encounter Results * GIARDIA AND CRYPTOSPORIDIUM ANTIGENS (10/14/2021 5:35 EDT) Giardia and Cryptosporidium Cryptosporidium Antigen Neg and Giardia Antigen Neg Cryptosporidium Antigen Neg and Giardia Antigen Neg 2 13:49 EDT [facility] Feces SPECIMEN FROM RECTUM / Unknown Stool Collect / Unknown 10/14/2021 5:35 EDT 10/14/2021 22:44 EDT us Provider Outr Resulting Lab MICROBIOLOGY - GENER AL ORDERABLES Final Result [facility] [address] [place] [address] documented in this encounter Visit Diagnoses Not on filedocumented in this encounter Care Teams Investigator Utility Bill Complaints Relationship Specialty Start Date End Date Jennifer Gagnon MD [address] [place] [address] PCP - General 04/30/12 documented as of this encounter
--- OUTSIDE RECORDS SUMMARY | 2024-05-08 08:36 | XMS_ITS | Clinical Summary ---
Author Organization [facility] Address [facility] [place] [address] Care Team Providers Care Cut And Cover Line Worker Name Role Phone Jennifer Gagnon MD Primary Care Provider [phone] Allergies Active Allergy Reactions Criticality Noted Date Comments Oxycodone Other (See Comments) High 09/08/2017 Other reaction(s): Dystonic reaction Medications Medication Sig Dispensed Refills Start Date End Date Status aspirin 81 mg EC tablet Take 81 mg by mouth daily. Active levothyroxine (SYNTHROID) 50 mcg tablet Take 50 mcg by mouth daily. Active omeprazole (PRILOSEC) 20 mg capsule Take 20 mg by mouth daily. Active atorvastatin (LIPITOR) 80 mg tablet Take 0.5 tablets by mouth every evening. 30 tablet 3 03/31/2012 Active metoprolol succinate (TOPROL-XL) 50 mg 24 hr tablet Take 1 tablet by mouth daily. 30 tablet 12 03/31/2012 Active nitroGLYcerin (NITROSTAT) 0.[address] 1 tablet under the tongue every 5 minutes as needed for Chest pain. 90 tablet 3 03/31/2012 Active Additional Information Patient not taking.Reported on 02/10/2019 meclizine (ANTIVERT) 25 mg Tablet Take 25 mg by mouth Three times daily as needed. Active oxybutynin (DITROPAN) 5 mg Tablet Take 10 mg by mouth Daily. Active metoprolol tartrate (LOPRESSOR) 50 mg Tablet Take 50 mg by mouth Daily. Active Active Problems Problem Noted Date Diagnosed Date Bunion, painful. bilateral. 02/10/2019 Atrial fibrillation 02/10/2019 Vertigo 02/10/2019 History of tonsillectomy 02/10/2019 Hx of shoulder surgery 02/10/2019 History of cataract surgery 02/10/2019 CAD (coronary artery disease) 03/31/2012 Overview (03/31/2012): Significant atherosclerosis of first septal Resolved Problems Problem Noted Date Diagnosed Date Resolved Date NSTEMI (non-ST elevated myoc ardial infarction) 03/28/2012 03/31/2012 Immunizations Name Administration Dates Next Due Influenza Vaccine, Whole 05/02/2006,03/08/2005 Pneumococcal 23-Valent Polysaccharide (Pneumovax 23) 03/31/2012,12/03/2002 Td Adult (not absorbed) 12/03/2002 Social History Tobacco Use Types Packs/Day Years Used Date Smoking Tobacco: Never Smokeless Tobacco: Never Alcohol Use Standard Drinks/Week Comments No 0 (1 standard drink = 0.6 oz pure alcohol) occasional social drink once a year Sex and Gender Information Value Date Recorded Sex Assigned at Not on file Gender Identity Not on file Sexual Orientation Not on file Last Filed Vital Signs Vital Sign Reading Time Taken Comments Blood Pressure 112/80 02/10/2019 10:37 AM EDT Pulse 60 02/10/2019 10:37 AM EDT Temperature 36.5 ??C (97.7 ??F) 03/31/2012 1:15 PM ES T Respiratory Rate 14 03/31/2012 12:45 PM EST Oxygen Saturation 96% 03/31/2012 1:15 PM EST Inhaled Oxygen Concentration - - Weight 76.3 kg (168 lb 4.8 oz) 02/10/2019 10:37 AM EDT measured Height 152.8 cm (5' 0.16) 02/10/2019 10:37 AM E DT measured Body Mass Index 32.7 02/10/2019 10:37 AM EDT Plan of Treatment Health Maintenance Due Date Last Done Comments Hepatitis C Screening 1963 Zoster vaccine (1 of 2) 1994 Advance Directive 1999 Tetanus/Diphtheria/Pertussis Vaccines (1 - Tdap) 12/04/2002 12/03/2002 Bone Density Scan 2009 Pneumoccocal Vaccine: 65+ (2 of 2 - PCV) 03/31/2013 03/31/2012, 12/03/2002 RSV Vaccine (1 - 1-dose 75+ series) 2019 Covid-19 Vaccine ( season) 2024 Influenza (Flu) vaccine (1 o f 1 - Influenza standard series) 01/19/2024 05/02/2006, 03/08/2005 Advance Directives * Full Code (Latest Code Status on File) Date Activated Date Inactivated Comments 03/28/2012 5:47 PM 03/31/2012 6:36 PM Question Answer Comments Order Status: Initial Order Does patient have decision m aking capacity? Yes, Order is based on Patients wishes. Care Teams Cut And Cover Line Worker Relationship Specialty Start Date End Date Jennifer Gagnon MD [address] [place] [address] PCP - General 03/28/12
--- OUTSIDE RECORDS SUMMARY | 2024-05-08 08:36 | XMS_ITS | Encounter Summary ---
Author Organization [facility] Address [address] [place] [address] Care Team Providers Care Needle Board Repairer Name Role Phone Jennifer Gagnon MD Primary Care Provider [phone] Reason for Visit * Reason Onset Date Comments Results 09/16/2017 Encounter Details Date Type Department Care Team (Late st Contact Info) Description 09/16/2017 Telephone [facility] ENT- [address] [id number] Leland Burr MD [address] [facility] [place] [phone] Results Social History Tobacco Use Types Packs/Day Years Used Date Smoking Tobacco: Never Smokeless Tobacco: Never Alcohol Use Standard Drinks/Week Comments Yes 0 (1 standard drink = 0.6 oz pur e alcohol) rare Comments Unknown Sex and Gender Information Value Date Recorded Sex Assigned at Not on file Legal Sex Female 18:17 EST Gender Identity Not on file Sexual Orientation Not on file documented as of this encounter Miscellaneous Notes * Telephone Encounter - Leland Burr MD - 09/16/2017 1037 EDT Spoke to patient. Facial bones - no fracture. Has seen PCP and had a repeat CT head to ensure stable subarachnoid hemorrhage. No Otolaryngology follow up required. documented in this encounter Plan of Treatment Not on file documented as of this encounter Visit Diagnoses Not on filedocumented in this encounter Care Teams Needle Board Repairer Relationship Specialty Start Date End Date Jennifer Gagnon MD [address] [place] [phone] PCP - General 04/30/12 documented as of this encounter
--- OUTSIDE RECORDS SUMMARY | 2024-05-08 08:36 | XMS_ITS | Encounter Summary ---
Author Organization [facility] Address [address] [place] [address] Care Team Providers Care Ram Press Operator Name Role Phone Jennifer Gagnon MD Primary Care Provider [phone] Reason for Referral * Consult (Routine) - Denied Specialty Diagnoses / Procedures Referred By Devante murillo Referred To Contact Otolaryngology Diagnoses Closed fracture of supraorbital rim, initial encounter ([facility]) Sophy Corrales PA-C Phone: tel: fax: Referral ID Status Reason Start Date Expiration Date V isits Requested Visits Authorized [id number] Denied Specialty Services Required 09/08/2017 1 0 Question Answer Reason for Request: Mechanical fall with head strike resulting in supraorbital fracture. ENT transportation logistics internship for face trauma today so is the service she is referred to although pt did not require consult in the ED. Reason for Visit * Reason Comments Fall Tripped and fell out side, striking head on cement. Moderate swelling and bruising to right eyebrow, cheek and forehead. No LOC. Abrasions to right 5th finger. Unknown tetanus. Takes ASA 81 mg daily. Broke glasses during fall. Encounter Details Date Type Department Care Team (Late st Contact Info) Description 09/08/2017 17:17 EDT - 09/08/2017 20:27 EDT Emergency [facility] Emergency [facility] - [facility] [address] [place] [address] Sophy Corrales PA-C [address] [place] [address] Sam Bryant MD [address] [place] [address], [address] [place] [address] Emergency, MD Mary Closed fracture of supraorbital rim, initial encounter ([facility]) (Primary Dx) Discharge Disposition: Home or Self Care Social History Tobacco Use Types Packs/Day Years [...] on file documented as of this encounter Last Filed Vital Signs Vital Sign Reading Time Taken Comments Blood Pressure 126/52 09/08/20172024 EDT Pulse 78 09/08/20172024 EDT Temperature 37 ??C (98.6 ??F) 09/08/20172024 EDT Respiratory Rate 18 09/08/20172024 EDT Oxygen Saturation 100% 09/08/20172024 EDT Inhaled Oxygen Concentration - - Weight - - Height - - Body Mass Index - - documented in this encounter Discharge Diagnoses Diagnosis S02.80XA Fx oth skull and facial bones, unspecified side, init-S02.80XA[ICD-10-CM] S00.83XA Contusion of other part of head, initial encounter-S00.83XA[ICD-10-CM] S80.211A Abrasion, right knee, initial encounter-S80.211A[ICD-10-CM] S60.416A Abrasion of right little finger, initial encounter-S60.416A[ICD-10-CM] S00.81XA Abrasion of other part of head, initial encounter-S00.81XA[ICD-10-CM] M25.511 Pain in right shoulder-M25.511[ICD-10-CM] R11.0 Nausea-R11.0[ICD-10-CM] R22.0 Localized swelling, mass and lump, head-R22.0[ICD-10-CM] W01.198A Fall on same level from slipping, tripping and stumbling with subsequent striking against other object, initial encounter-W01.198A[ICD-10-CM] I10 Essential (primary) hypertension-I10[ICD-10-CM] I48.91 Unspecified atrial fibrillation-I48.91[ICD-10-CM] E03.9 Hypothyroidism, unspecified-E03.9[ICD-10-CM] Z79.82 retirement (current) use of aspirin-Z79.82[ICD-10-CM] Z79.899 Other mcc (current) drug therapy-Z79.899[ICD-10-CM] documented in this encounter Discharge Instructions * Instructions* Sophy Corrales - 09/08/2017 20:06 EDT You were evaluated in the Emergency Department. You had a CT scan of your head, face and c-spine (neck). You have NO bleeding in your brain. You do have a fracture (broken bone) of the upper outer portion of your orbit (bone around the eye). This requires no immediate intervention. You have been referred to the ENT clinic for follow-up. If you do not hear from them in the next couple of days, call the number listed to schedule follow-up. As we discussed, you will continue to have increased bruising around your eye (and possibly around your left eye as well) and throughout the your face over the next few days. Your eye will likely be swollen shut tomorrow. Sleep in a reclined position rather than flat for the next couple of days if possible to keep your head elevated. Ice the area on and off for the next [address] had no fracture or acute findings and your shoulder xray was normal. Return to the Emergency Department if you have fever, chest pain, difficulty breathing, severe abdominal pain, focal numbness/weakness or any other concerning symptoms. * Attachments The following attachments cannot be sent through Care Everywhere. * FACIAL FRACTURE (TURKMEN) documented in this encounter Medications at Time of Discharge atorvastatin (LIPITOR) 40 mg tablet Take 40 mg by mouth daily. levothyroxine (SYNTHROID) 50 mcg tablet Take 50 mcg by mouth daily. meclizine (ANTIVERT) 25 mg tablet Take 25 mg by mouth 3 times daily as needed. metoprolol (LOPRESSOR) 50 mg tablet Take 50 mg by mouth daily. omeprazole (PRILOSEC) 20 mg capsule Take 20 mg by mouth daily. oxybutynin (DITROPAN) 5 mg tablet Take 10 mg by mouth daily. documented as of this encounter Discharge Disposition Disposition Code Departure Means Destination Home or Self Shelter documented in this encounter ED Notes * Caitlin Garcia RN - 09/08/20172025 EDT Pt given discharge paperwork, follow up with ENT this week, ambulatory without assistance, receiving ride home from spouse, return for new or worsening symptoms, verbalized understanding * Sam Bryant MD - 09/08/20176 EDT I, Ramon Xavier, am scribing for Dr Marcello Bryant while he is personally performing the service. Ramon Xavier 09/08/2017 18:27 I performed a history and exam of this patient and discussed the case with the PA. I reviewed this individual's note and I concur with the documented findings and plan of care except as documented differently. ROS as per PA chart. Ioana Beckman is a 72 y.o. female on 81 mg aspirin who presents to the ED for evaluation of headinjury s/p mechanical fall. Patient denies LOC and has full recollection of the fall. She denies chest pain and back pain. Patient denies gait abnormality. Patient denies distal numbness or tingling.Patient denies focal weakness. She denies visual, auditory, or speech changes. Physical Exam: Patient alert, active, reponsive. Converses well, speaking in full sentences EOMI, cranial nerves intact, motor power normal in upper and lower extremities bilaterally, normal sensation to light touch throughout Large hematoma above R eye, with superficial abrasion over right cheek Neurologically intact ED Course: Imaging was obtained and reviewed by me and read by radiology: Right shoulder xray showed no fracture /no dislocation. C spine CT showed no evidence of fracture, degenerative disc disase present. CT head showed no hemorrhage, no infarct. Subcutaneous hematoma anterior to right frontal bone. Nondisplaced fracture of right superorbital process. Facial CT shows fracture of the right superorbital process. Patient was discharged as per PA chart. This documentation is recorded by Ramon Xavier acting as Scribe under the direction and presence of Sam Bryant MD. Sam Bryant MD: I personally performed the services recorded by the scribe in my presence. I confirm the scribe's documentation has been reviewed by me to accurately and completely record my work, treatment, procedures, and medical decision making. * Sophy Corrales - 09/08/2017 1744 EDT DOS: 09/08/2017 Chief Complaint Patient presents with ??? Fall Tripped and fell outside, striking head on cement. Moderate swelling and bruising to right eyebrow,cheek and forehead. No LOC. Abrasions to right 5th finger. Unknown tetanus. Takes ASA 81 mg daily. Broke glasses during fall. HPI The patient is a 72 y.o. female who presents today with Fall (Tripped and fell outside, striking head on cement. Moderate swelling and bruising to right eyebrow, cheek and forehead. No LOC. Abrasionsto right 5th finger. Unknown tetanus. Takes ASA 81 mg daily. Broke glasses during fall. ) HPI 72 yo F hx previous afib, on 81 mg ASA, no other blood thinners presents after a fall. Patient had a mechanical trip and fall on the curb. She fell striking the right side of her face on the ground. No LOC. She remembers the fall. She has pain in the right side of her face or she struck the ground.She has mild pain in her right shoulder which she also fell onto. Also states she scraped up her rig ht hand and knee, but has no pain in these areas. Denies any other injury. She has a mild headache.No changes in vision or diplopia. No neck pain or back pain. Some nausea, no vomiting. Denies CP, SOB, Vomiting/Diarrhea, abd pain, paresthesias, weakness. She was ambulatory after the fall. Review of Systems Review of Systems Constitutional: Negative for chills and fever. HENT: Positive for facial swelling. Eyes: Negative for visual disturbance. Respiratory: Negative for cough and shortness of breath. Cardiovascular: Negative for chest pain. Gastrointestinal: Positive for nausea. Negative for abdominal pain, diarrhea and vomiting. Genitourinary: Negative for dysuria and frequency. Musculoskeletal: Negative for back pain and neck pain. Skin: Negative for rash. Neurological: Negative for weakness and numbness. The patient's past medical, family and social history was reviewed and updated as needed. Allergies Allergen Reactions ??? Oxycontin [Oxycodone] Dystonic reaction Vital Signs Temp: 36.3 ??C (97.3 ??F) Temp src: Oral Pulse: 70 Resp: 18 SpO2: 99 % BP: 138/68 BP Device: BP Machine Patient Position: Sitting BP Cuff Location: Right arm O2 Device: None (Room air) Physical Exam Constitutional: She is oriented to person, place, and time. She appears well- developed and well-nourished. No distress. HENT: Head: Normocephalic. 5 x 7 hematoma overlying R forehead and R superior orbit. Shallow abrasion over hematoma and shallow abrasions to R face over lateral orbit and maxilla. R superiolateral orbital tenderness. Face is otherwise nontender. No facial instability No septal hematoma TM clear bilaterally without hemotympanum Eyes: EOM are normal. Pupils are equal, round, and reactive to light. No conjunctival changes or hyphema Neck: Normal range of motion. No tracheal deviation present. Very mild tenderness around C7. Otherwise nontender. Full AROM intact. Placed in collar during exam. Cardiovascular: Normal rate and regular rhythm. Pulmonary/Chest: Effort normal and breath sounds normal. She exhibits no tenderness. Abdominal: Soft. There is no tenderness. There is no rebound and no guarding. Musculoskeletal: Normal range of motion. She exhibits no edema. Mild R lateral shoulder ttp. Extremities are otherwise nontender throughout. Shallow abrasion over R pinky finger. Multiple finger contractures which are chronic per pt. No tenderness of either hand.No snuffbox ttp. Full AROM except fingers as noted. No spine ttp. No pelvis instability or tenderness. Neurological: She is alert and oriented to person, place, and time. Skin: Skin is warm and dry. She is not diaphoretic. Shallow abrasion to R anterior knee and R pinky finger. Psychiatric: She has a normal mood and affect. RESULTS EKG orders: None Radiology orders: CT FACIAL BONES WO CONTRAST SHOULDER [address] HEAD WO CONTRAST CT CERVICAL SPINE WO CONTRAST ED Lab Results Labs Reviewed - No data to display Procedures ED COURSE A medical screening exam was performed. 72 yo F hx previous afib, on 81 mg ASA, no other blood thinners presents after a fall. Will get CT head/c-spine as well as CT maxface to assess for ICH, C-spine injury or facial bone fractures. R shoulder xray to assess for fracture. Do not suspect intrathoracic or intraabdominal injury. Relevant Data Sophy Corrales's Documentation Comment Time Patient discussed with Dr. Bryant who agrees with plan 09/[address] without ICH. Does demonstrate the known hematoma as well as a nondisplaced supraorbital process fracture. No indication for acute facial consult here, but will refer to ENT clinic for follow-up since they are on for facial trauma today 09/09 [address] C-[address] negative, c-collar cleared 09/09 1999 Shoulder xray negative. Will discharge 09/09 1999 Discussed results and next steps with patient. Patient educated on concerning symptoms for which toreturn. 09/09 1999 ASSESSMENT AND PLAN Final diagnoses: Closed fracture of supraorbital rim, initial encounter ([facility]) DISPOSITION: Discharged The patient's pain was managed to an adequate level weighing risk vs. benefit of further medications. Upon departure from the Emergency Department, the patient's pain was 6 on a zero to ten scale. Any further pain treatment will be at the discretion of the provider following up with the patient based on their clinical assessment. Condition at departure from the Emergency Department: Stable PCP: Jennifer Gagnon [facility] Number of Diagnoses or Management Options Closed fracture of supraorbital rim, initial encounter ([facility]): Amount and/or Complexity of Data Reviewed Tests in the radiology section of CPT??: ordered Review and summarize past medical records: yes Independent visualization of images, tracings, or specimens: yes Marcello Bryant was available for supervision. 09/08/2017 17:44 No flowsheet data found. documented in this encounter Plan of Treatment Scheduled Referrals Name Type Priority Associated Diagnoses Orde r Schedule AMB CONS/FOLLOW UP ENT Outpatient Referral Routine Closed fracture of supraorbital rim, initial encounter ([facility]) Ordered: 09/08/2017 documented as of this encounter Procedures Procedure Name Priority Date/Time Associated Diagnosis Comments CT HEAD WO CONTRAST STAT 09/08/2017 1 8:[address] FACIAL BONES WO CONTRAST STAT 09/08/2017 18:[address] CERVICAL SPINE WO CONTRAST 09/08/2017 18:52 EDT SHOULDER 2 OR MORE VIEWS STAT 09/08/2017 18:41 EDT documented in this encounter Results * CT CERVICAL SPINE WO CONTRAST (09/08/2017 18:52 EDT) Anatomical Region Laterality Modality Other 09/08/2017 18:5 2 EDT 09/09/2017 9:58 EDT Narrative 09/09/2017 9:[address] CERVICAL SPINE WO CONTRAST ??09/08/2017 6:52 PM CLINICAL HISTORY/COMMENTS: Head trauma, headache TECHNIQUE: Noncontrast CT of the cervical spine was obtained per standard department protocol. COMPARISON: None FINDINGS: No fracture is identified. The cervical spine is normally aligned. There is severe degenerative disc disease throughout the cervical spine with intervertebral disc space narrowing at all levels and extensive subchondral cyst formation. No significant soft tissue abnormality identified. IMPRESSION: No evidence of fracture. Severe degenerative disc disease throughout the cervical spine. I have personally reviewed the images and the above interpretation and agree with the findings. Procedure Note Ramon Tillman P - 09/09/2017 CT CERVICAL SPINE WO CONTRAST 09/08/2017 6:52 PM CLINICAL HISTORY/COMMENTS: Head trauma, headache TECHNIQUE: Noncontrast CT of the cervical spine was obtained per standard department protocol. COMPARISON: None FINDINGS: No fracture is identified. The cervical spine is normally aligned. There is severe degenerative disc disease throughout the cervical spine with intervertebral disc space narrowing at all levels and extensive subchondral cyst formation. No significant soft tissue abnormality identified. IMPRESSION: No evidence of fracture. Severe degenerative disc disease throughout the cervical spine. I have personally reviewed the images and the above interpretation and agree with the findings. us Sophy Puga Antoni PA-C IMG CT ORDERABLES Final Re sult * CT HEAD WO CONTRAST (09/08/2017 18:52 EDT) Anatomical Region Laterality Modality Other 09/08/2017 18:5 2 EDT 09/09/2017 11:40 EDT Narrative 09/09/2017 10:24 EDT Addendum Begins The final interpretation and recommendations were discussed with Jennifer Gagnon at 11:00AM on September 09, 2017 by TUCKER Perez. Addendum Ends CT HEAD WO CONTRAST, CT FACIAL BONES WO CONTRAST ??09/08/2017 6:52 PM SIGNS AND SYMPTOMS/COMMENTS: ?? Head trauma, headache TECHNIQUE: ?? Axial non-contrast CT images of the head were obtained from the vertex through the foramen magnum with coronal reformations. COMPARISON: None available. FINDINGS: CT FACE: There is a large hematoma anterior to the right frontal bone and orbit. No maxillofacial fracture. Small lucency in the superolateral right orbital rim represents a physiologic suture line. CT HEAD: Linear high density in the posterior aspect of the right sylvian fissure (image 55 and 51, series 201) compatible with a small subarachnoid hemorrhage. No other areas of intracranial hemorrhage identified. There is no infarct. No obstructive hydrocephalus. No midline shift. No space-occupying mass. The brain parenchyma is normal in appearance. The basal cisterns are patent and clear. The paranasal sinuses and mastoid air cells are clear. No fracture is identified. No soft tissue swelling is present. The orbital structures normal. IMPRESSION: 1. Right frontal scalp/supraorbital subcutaneous hematoma. No underlying maxillofacial fracture. Small lucency in the superolateral right orbital rim represents a physiologic osseous suture line. 2. Small subarachnoid hemorrhage in the right sylvian fissure. Recommend short interval follow-up head CT to assess for interval change. This final report differs significantly from the preliminary resident interpretation that was communicated to the ordering provider.?The radiology department will contact the patient to communicate the relevant findings from the final report. I have personally reviewed the images and the above interpretation and agree with the findings. Procedure Note Ramon Tillman P - 09/09/2017 Addendum Begins The final interpretation and recommendations were discussed with Jennifer Gagnon at 11:00AM on September 09, 2017 by TUCKER Perez. Addendum Ends CT HEAD WO CONTRAST, CT FACIAL BONES WO CONTRAST 09/08/2017 6:52 PM SIGNS AND SYMPTOMS/COMMENTS: Head trauma, headache TECHNIQUE: Axial non-contrast CT images of the head were obtained from the vertex through the foramen magnum with coronal reformations. COMPARISON: None available. FINDINGS: CT FACE: There is a large hematoma anterior to the right frontal bone and orbit. No maxillofacial fracture. Small lucency in the superolateral right orbital rim represents a physiologic suture line. CT HEAD: Linear high density in the posterior aspect of the right sylvian fissure (image 55 and 51, series 201) compatible with a small subarachnoid hemorrhage. No other areas of intracranial hemorrhage identified. There is no infarct. No obstructive hydrocephalus. No midline shift. No space-occupying mass. The brain parenchyma is normal in appearance. The basal cisterns are patent and clear. The paranasal sinuses and mastoid air cells are clear. No fracture is identified. No soft tissue swelling is present. The orbital structures normal. IMPRESSION: 1. Right frontal scalp/supraorbital subcutaneous hematoma. No underlying maxillofacial fracture. Small lucency in the superolateral right orbital rim represents a physiologic osseous suture line. 2. Small subarachnoid hemorrhage in the right sylvian fissure. Recommend short interval follow-up head CT to assess for interval change. This final report differs significantly from the preliminary resident interpretation that was communicated to the ordering provider.?The radiology department will contact the patient to communicate the relevant findings from the final report. I have personally reviewed the images and the above interpretation and agree with the findings. Sophy Corrales PA-C [facility] [place] ORDERABLES Edited * CT FACIAL BONES WO CONTRAST (09/08/2017 18:52 EDT) Anatomical Region Laterality Modality Other 09/08/2017 18:5 2 EDT 09/09/2017 11:40 EDT Narrative 09/09/2017 10:24 EDT Addendum Begins The final interpretation and recommendations were discussed with Jennifer Gagnon at 11:00AM on September 09, 2017 by TUCKER Perez. Addendum Ends CT HEAD WO CONTRAST, CT FACIAL BONES WO CONTRAST ??09/08/2017 6:52 PM SIGNS AND SYMPTOMS/COMMENTS: ?? Head trauma, headache TECHNIQUE: ?? Axial non-contrast CT images of the head were obtained from the vertex through the foramen magnum with coronal reformations. COMPARISON: None available. FINDINGS: CT FACE: There is a large hematoma anterior to the right frontal bone and orbit. No maxillofacial fracture. Small lucency in the superolateral right orbital rim represents a physiologic suture line. CT HEAD: Linear high density in the posterior aspect of the right sylvian fissure (image 55 and 51, series 201) compatible with a small subarachnoid hemorrhage. No other areas of intracranial hemorrhage identified. There is no infarct. No obstructive hydrocephalus. No midline shift. No space-occupying mass. The brain parenchyma is normal in appearance. The basal cisterns are patent and clear. The paranasal sinuses and mastoid air cells are clear. No fracture is identified. No soft tissue swelling is present. The orbital structures normal. IMPRESSION: 1. Right frontal scalp/supraorbital subcutaneous hematoma. No underlying maxillofacial fracture. Small lucency in the superolateral right orbital rim represents a physiologic osseous suture line. 2. Small subarachnoid hemorrhage in the right sylvian fissure. Recommend short interval follow-up head CT to assess for interval change. This final report differs significantly from the preliminary resident interpretation that was communicated to the ordering provider.?The radiology department will contact the patient to communicate the relevant findings from the final report. I have personally reviewed the images and the above interpretation and agree with the findings. Procedure Note Ramon Tillman P - 09/09/2017 Addendum Begins The final interpretation and recommendations were discussed with Jennifer Gagnon at 11:00AM on September 09, 2017 by TUCKER Perez. Addendum Ends CT HEAD WO CONTRAST, CT FACIAL BONES WO CONTRAST 09/08/2017 6:52 PM SIGNS AND SYMPTOMS/COMMENTS: Head trauma, headache TECHNIQUE: Axial non-contrast CT images of the head were obtained from the vertex through the foramen magnum with coronal reformations. COMPARISON: None available. FINDINGS: CT FACE: There is a large hematoma anterior to the right frontal bone and orbit. No maxillofacial fracture. Small lucency in the superolateral right orbital rim represents a physiologic suture line. CT HEAD: Linear high density in the posterior aspect of the right sylvian fissure (image 55 and 51, series 201) compatible with a small subarachnoid hemorrhage. No other areas of intracranial hemorrhage identified. There is no infarct. No obstructive hydrocephalus. No midline shift. No space-occupying mass. The brain parenchyma is normal in appearance. The basal cisterns are patent and clear. The paranasal sinuses and mastoid air cells are clear. No fracture is identified. No soft tissue swelling is present. The orbital structures normal. IMPRESSION: 1. Right frontal scalp/supraorbital subcutaneous hematoma. No underlying maxillofacial fracture. Small lucency in the superolateral right orbital rim represents a physiologic osseous suture line. 2. Small subarachnoid hemorrhage in the right sylvian fissure. Recommend short interval follow-up head CT to assess for interval change. This final report differs significantly from the preliminary resident interpretation that was communicated to the ordering provider.?The radiology department will contact the patient to communicate the relevant findings from the final report. I have personally reviewed the images and the above interpretation and agree with the findings. Sophy Corrales PA-C [facility] [place] ORDERABLES Edited * SHOULDER 2 OR MORE VIEWS (09/08/2017 18:41 EDT) Anatomical Region Laterality Modality Other 09/08/2017 18:4 1 EDT 09/08/2017 20:19 EDT Narrative 09/08/2017 20:19 EDT SHOULDER 2 OR MORE VIEWS ??09/08/2017 6:41 PM Signs and Symptoms/Comments: ?? accidental fall Comparison: None available FINDINGS: 3 views of the right shoulder demonstrate no fracture, dislocation or other acute abnormality. Bone alignment is anatomic and soft tissues are within normal limits. There are at least mild degenerative changes in the acromioclavicular joint and minimal degenerative changes in the glenohumeral joint. The visible portions of the right lung are clear. I have personally reviewed the images and the above interpretation and agree with the findings. Procedure Note Matt Barron MD - 09/08/2017 SHOULDER 2 OR MORE VIEWS 09/08/2017 6:41 PM Signs and Symptoms/Comments: accidental fall Comparison: None available FINDINGS: 3 views of the right shoulder demonstrate no fracture, dislocation or other acute abnormality. Bone alignment is anatomic and soft tissues are within normal limits. There are at least mild degenerative changes in the acromioclavicular joint and minimal degenerative changes in the glenohumeral joint. The visible portions of the right lung are clear. I have personally reviewed the images and the above interpretation and agree with the findings. Sophy Corrales PA-C IMG DIAGNOSTIC IMAGING ORD ERABLES Final Result documented in this encounter Visit Diagnoses Diagnosis Closed fracture of supraorbital rim, initial encounter ([facility] Primary documented in this encounter Administered Medications Inactive Administered Medications - up to 3 most recent administrations Medication Order MAR Action Action Date Dose Rate Site acetaminophen (TYLENOL) tablet 650 mg 650 mg, oral, NOW X1, 1 dose, On 09/08/17 at 2014, STAT Given 09/08/2017 20:14 EDT 650 mg documented in this encounter Historical Medications * This list may reflect changes made after this encounter. meclizine (ANTIVERT) 25 mg tablet Take 25 mg by mouth 3 times daily as needed. oxybutynin (DITROPAN) 5 mg tablet Take 10 mg by mouth daily. omeprazole (PRILOSEC) 20 mg capsule Take 20 mg by mouth daily. levothyroxine (SYNTHROID) 50 mcg tablet Take 50 mcg by mouth daily. metoprolol (LOPRESSOR) 50 mg tablet Take 50 mg by mouth daily. atorvastatin (LIPITOR) 40 mg tablet Take 40 mg by mouth daily. added in this encounter Active and Recently Administered Medications Times are shown in EDT. Scheduled Medication Order 09/06/2017 09/07/2017 09/08/2017 acetaminophen (TYLENOL) tablet 650 mg (COMPLETED) 650 mg, oral, NOW X1, 1 dose, On 09/08/17 at 2014, STAT 2013 (Given - [facility] er: Caitlin Garcia RN) documented in this encounter Care Teams Ram Press Operator Relationship Specialty Start Date End Date Jennifer Gagnon MD [address] [place] [id number] PCP - General 04/30/12 documented as of this encounter
--- OUTSIDE RECORDS SUMMARY | 2024-05-08 08:37 | XMS_ITS | Encounter Summary ---
Author Organization [facility] Address [facility] [place] [address] Care Team Providers Care Protection Analyst Name Role Phone Jennifer Gagnon MD Primary Care Provider [phone] Encounter Details Date Type Department Care Team (Late st Contact Info) Description 03/31/2012 [place] [id number] Obed Elliott MD [facility] [place] [address] CARDIAC CATHETERIZATION Social History Tobacco Use Types Packs/Day Years Used Date Smoking Tobacco: Never Alcohol Use Standard Drinks/Week Comments No 0 (1 standard drink = 0.6 oz pure alcohol) occasional social drink once a year Sex and Gender Information Value Date Recorded Sex Assigned at Not on file Gender Identity Not on file Sexual Orientation Not on file documented as of this encounter Last Filed Vital Signs Vital Sign Reading Time Taken Comments Blood Pressure 126/41 03/31/2012 1:15 PM EST Pulse 66 03/31/2012 1:15 PM EST Temperature 36.5 ??C (97.7 ??F) 03/31/2012 1:15 PM ES T Respiratory Rate 14 03/31/2012 12:45 PM EST Oxygen Saturation 96% 03/31/2012 1:15 PM EST Inhaled Oxygen Concentration - - Weight 73.6 kg (162 lb 4.1 oz) 03/31/2012 7:00 A M EST Height 162.6 cm (5' 4) 03/30/2012 6:59 PM EST Body Mass Index 27.85 03/30/2012 6:59 PM EST documented in this encounter Discharge Instructions * Patient Instructions* Shelia Heath - 03/31/2012 12:22 PM EST Instruction after leaving the hospital Why you were hospitalized: Chest pain Call your doctor if: Chest pain, shortness of breath, pain or swelling in legs occurs. If you have non-emergent questions between now and the time of your follow up appointments: During 8am-5pm Saturday through Saturday call [phone] to speak with a nurse in the cardiology clinic All other times call [phone] and ask to speak to the dry mill worker operational assistant. Activity level: as tolerated Diet: low-cholesterol, low-fat Return to work: One week Driving: No driving for 48 hours after catheterization. Specific instructions related to your condition: Your prescriptions have been e-scripted to Jane Saldaña in [place], [place] Your Inpatient Doctor(s) at [facility]: Dr. Jorge L Chowdhury Anticoagulation follow-up: Dr. Gagnon's office, INR check on Saturday and Caitlin (RN for Dr. Gagnon) will call you tomorrow to go over the details Follow up Appointments: PCP - Dr. Gagnon, @ 3:45pm Director Funeral - Dr. Esvin Acevedo, [facility], SaturdayApr.25 @ 10:30am Home oxygen therapy: N/A Arrangements for VNA/home care: none * Attachments The following attachments cannot be sent through Care Everywhere. * PERCUTANEOUS CORONARY INTERVENTION: WHAT TO EXPECT AT HOME (TAJIK) documented in this encounter Medications at Time of Discharge Medication Sig Dispensed Refills Start Date End Date atorvastatin (LIPITOR) 80 mg tablet Take 0.5 tablets by mouth every evening. 30 tablet 3 03/31/2012 metoprolol succinate (TOPROL-XL) 50 mg 24 hr tablet Take 1 tablet by mouth daily. 30 tablet 12 03/31/2012 nitroGLYcerin (NITROSTAT) 0.[address] 1 tablet under the tongue every 5 minutes as needed for Chest pain. 90 tablet 3 03/31/2012 aspirin 81 mg EC tablet Take 81 mg by mouth daily. levothyroxine (SYNTHROID) 50 mcg tablet Take 50 mcg by mouth daily. omeprazole (PRILOSEC) 20 mg capsule Take 20 mg by mouth daily. warfarin (COUMADIN) 5 mg tablet Take 1 tablet by mouth daily. 30 tablet 3 03/31/2012 02/10/2019 enoxaparin (LOVENOX) 100 mg/mL Syrg injection Inject 1 mL subcutaneously daily. 7 Syringe 2 03/31/2012 02/10/2019 documented as of this encounter Progress Notes * Tonya Anna RN - 03/31/2012 4:37 PM EST Gave patient pneumonia vaccine prior to discharge. Reviewed side effects and reactions with patientand who demonstrated understanding. * Tonya Anna RN - 03/31/2012 4:22 PM EST Reviewed discharge summary, medications & Lovenox teaching with patient and who demonstrated understanding. D/c'd patient from telemetry and IV's and gave take-home Lovenox package. Patient left for home with , ambulating independently to [facility]. * Reva Sotelo MD - 03/31/2012 1:59 PM EST Post cath check S: Patient resting comfortably, some discomfort at cath site. Notes no bleeding. Denies chest pain,palpitations, shortness of breath. O: Filed Vitals: 03/31/12 1245 BP: 110/51 Pulse: 58 Temp: Resp: 14 Gen: resting comfortably Ext: R/L groin catheterization site c/d/i, no active bleeding. No hematoma palpated, min TTP. No bruit appreciated.Distal pulses 2+, good capillary refill. A/P: Patient stable following cardiac cath. No complications. Will continue to monitor Reva Sotelo, PGY-1 Pager: [phone] * Jorge L Chowdhury MD - 03/31/2012 6:39 AM EST Inpatient Cardiology Progress Note ID: 66 y.o. female with CAD, pAfib, AAA, & stroke in 2005 who presented to OSH w/ chest and back pain, ruled in for NSTEMI, transferred to [facility], on heparin drip awaiting cardiac catheterization on 03/31. Hospital Day 3 days Active Problems: - NSTEMI 24 hour Events/Subjective: - Mild belly pain overnight; No BM yet. - One dose of metoprolol held overnight for low HR. - Anxious overnight - given PRN Ativan. - Stopped Nitroglycerin drip yesterday AM (improved pain control). Active Drips: Continuous Infusions: ??? heparin 850 Units/hr (03/31/12 0100) ??? nitroGLYcerin Stopped (03/30/12 0900) Active Medications: Scheduled Meds: ??? aspirin 81 mg Oral Daily ??? metoprolol tartrate 25 mg Oral Q6H XANDER ??? DISCONTD: aspirin 81 mg Oral Daily ??? DISCONTD: metoprolol tartrate 50 mg Oral Q6H XANDER ??? levothyroxine 50 mcg Oral QAM ??? sodium chloride 0.9 % 5 mL Intravenous Q12H ??? famotidine 20 mg Oral BID ??? clopidogrel 75 mg Oral Daily ??? atorvastatin 80 mg Oral QPM ??? DISCONTD: aspirin 325 mg Oral Daily PRN Meds:.LORazepam, pneumococcal, nitroGLYcerin, acetaminophen, heparin (porcine), morphine Physical Examination: Vitals: Last value Range last 24 hrs Temperature Temp: 36.4 ??C (97.5 ??F) Temp: [36.2 ??C (97.2 ??F)-37 ??C (98.6 ??F)] Heart Rate Heart Rate: 55 Heart Rate: [50-70] Blood Pressure BP: 102/39 mmHg BP: (101-129)/(32-49) Respiratory Rate Resp: 20 Resp: -- SpO2 SpO2: 97 % SpO2: [96 %-98 %] Intake/Output Summary (Last 24 hours) at 03/31/12 0639 Last data filed at 03/30/12 1751 Gross per 24 hour Intake 550 ml Output 1525 ml Net -975 ml Gen: Pleasant female, sitting in bed comfortably CV: RRR, nml S1 S2, no murmurs/rubs/gallops appreciated Pulm: CTAB, no wheezes or crackles Abdo: S NT ND +BS Extr: No LE edema noted, 2+ DP pulses bilaterally Neuro: Alert, oriented, non-focal Laboratory: Recent Labs Basename 03/31/12 0044 03/30/12 0118 03/29/12216 ??? WBC 5.6 6.3 5.7 ??? HGB 14.3 14.2 14.4 ??? PLATELET 193 196 222 Recent Labs Basename 03/31/12 0044 03/30/12 0118 03/29/12216 ??? NA 139 140 140 ??? K 4.1 4.0 4.1 ??? CL 106 106 106 ??? CO2 25 27 24 ??? BUN 21* 21* 18 ??? CREATININE 0.96 0.98 0.85 Recent Labs Basename 03/31/12 0044 03/30/12 0118 03/29/1221603/28/121817 ??? CALCIUM 9.0 8.8 8.7 -- ??? MAGNESIUM -- -- -- 0.86 ??? PHOS -- -- -- 3.3 No results found for this basename: AST:3,ALT:3,ALKPHOS:3,BILITOT:3,BILIDIR:3 in the last 72 hours Recent Labs Basename 03/31/12 0044 03/30/12 1624 03/30/12 1134 03/28/121817 ??? PT -- -- -- 14.6 ??? INR -- -- -- 1.1 ??? PTT 113* 114* 114* -- Recent Labs Basename 03/29/12 0738 03/29/127 03/29/12 0023 03/28/121817 ??? CK 172* 197* Not Perf -- ??? TROPONINT 0.21* -- Not Perf 0.48* Imaging: - None new Diagnostics: EKG 03/29: sinus kenzie, still w/ non-specific ST-T changes in precordial leads Echo: TTE: 1. The left ventricular chamber size is normal. Basal septal hypertrophy is observed. Ejection fraction is estimated to be 60%. There is mild hypokinesis of the goq-mg-onuxzg lateral LV. 2. Right ventricular chamber size, wall thickness, and systolic function are within normal limits. 3. There is no hemodynamically significant valve disease. ASSESSMENT/PLAN: Mrs. Beckman is a 66F w/ h/o CAD w/ unclear history of [place] in 1977 at the age of 32, no ICM by TTE, h/o PAF (now in sinus, was previously on diltiazem), Stroke in 2005 and hypothyroidism, who p/w chestand back pain w/ positive cardiac enzymes c/w NSTEMI. Back pain was initially concerning for aorticdissection, which has been effectively ruled out with a CTA. We are continuing ACS protocol: heparin gtt, ASA, b-daisy, statin, w/ anticipated cardiac catheterization in the AM. Her BP & HR hasbeen on the lower side, so we will hold off on an ACEi and decrease his Beta-daisy dose. Of note, pt has h/o prior CVA in 2005, giving her a CHADS2 score of 2 (prior CVA only, does not qualify for age, HTN, DM, or CHF), and this confers an intermediate risk of thromboembolic event (4.0% risk of event per year if no coumadin). Cardiac catheterization planned for today. Will likely need chronic anticoagulation with Warfarin upon discharge for Afib & hx. of stroke. Detailed plan outlined below: # NSTEMI: - Cardiac Catheterization today (w/ premedication) - Reduced Metoprolol dose to 25mg q6h for low HR. - Continue ASA 81mg QD, plavix 75 QD, atorvastatin 80 QD, - Continue heparin gtt for 48hrs. - Morphine PRN for pain. - Consider addition of ACEi when BP can tolerate # A-fib: - Rate and rhythm currently controlled - Continue b-daisy as written above - Pt's CHADS2-Vasc score is 5 (prior CVA only) - consider starting coumadin at discharge w/ INR follow-up # Hypothyroidism: - Continue home levothyroxine 50 mcg QD # DVT ppx: on heparin gtt # Code status: Full code Management Summary: - Cardiac Cat this AM w/ premedication. - Start Lashell Sotelo, PGY 1 CARDIOLOGY STAFF NOTE Ioana Beckman is a 66 y.o. year-old female patient whom I saw today with Dr. Sotelo. I have personally interviewed and examined the patient and reviewed appropriate data, including labs, ECGs and other diagnostic studies. I agree with the principal findings documented above. The assessment and plan were formulated in discussion with me. #1 NSTEMI #2 Paroxysmal AF #3 History of posterior circulation stroke Angiography today without significant stenosis or thrombus evident. No PCI was necessary/indicated. She is doing well, and will be discharged on ASCVD medical therapy as above, along with the initiation of warfarin therapy for prevention of thromboembolic stroke in AF. Will not continue clopidogrel(for NSTEMI) in light of already elevated bleeding risk with ASA/warfarin. Jorge L Chowdhury M.D. Staff Director Funeral pager [phone] * Jorge L Chowdhury MD - 03/30/2012 5:33 AM EST Inpatient Cardiology Progress Note ID: 66 y.o. female with CAD, pAfib, AAA, who presented to OSH w/ chest and back pain, ruled in for NSTEMI, transferred to [facility], on heparin drip awaiting cardiac catheterization on 03/31. Hospital Day 2 days Active Problems: - NSTEMI 24 hour Events/Subjective: - No acute events overnight - Pt c/o nagging L shoulder and back pain this AM, similar to what she had been experiencing on admission, 05/29 in severity, states that it is not too bothersome, no SOB, no lightheadedness. Otherwise is feeling well. Active Drips: Continuous Infusions: ??? heparin 850 Units/hr (03/30/12 014) ??? nitroGLYcerin 5 mcg/min (03/30/12101) Active Medications: Scheduled Meds: ??? metoprolol tartrate 50 mg Oral Q6H XANDER ??? levothyroxine 50 mcg Oral QAM ??? sodium chloride 0.9 % 5 mL Intravenous Q12H ??? famotidine 20 mg Oral BID ??? aspirin 325 mg Oral Daily ??? clopidogrel 75 mg Oral Daily ??? metoprolol 12.5 mg Oral Q6H XANDER ??? atorvastatin 80 mg Oral QPM ??? DISCONTD: DILTiazem 300 mg Oral Daily PRN Meds:.nitroGLYcerin, acetaminophen, heparin (porcine), morphine Physical Examination: Vitals: Last value Range last 24 hrs Temperature Temp: 36.4 ??C (97.5 ??F) Temp: [36.4 ??C (97.5 ??F)-36.9 ??C (98.4 ??F)] Heart Rate Heart Rate: 51 Heart Rate: [47-57] Blood Pressure BP: 93/56 mmHg BP: (93-124)/(36-63) Respiratory Rate Resp: 20 Resp: [16-20] SpO2 SpO2: 96 % SpO2: [93 %-98 %] Intake/Output Summary (Last 24 hours) at 03/30/12 0533 Last data filed at 03/29/12 2200 Gross per 24 hour Intake 960 ml Output 1400 ml Net -440 ml Gen: Pleasant female, sitting in bed comfortably CV: RRR, nml S1 S2, no murmurs/rubs/gallops appreciated Pulm: CTAB, no wheezes or crackles Abdo: S NT ND +BS Extr: No LE edema noted, 2+ DP pulses bilaterally Neuro: Alert, oriented, non-focal Laboratory: Recent Labs Basename 03/30/1211703/29/1221603/28/121817 ??? WBC 6.3 5.7 6.0 ??? HGB 14.2 14.4 14.5 ??? PLATELET 196 222 220 Recent Labs Basename 03/30/1211703/29/1221603/28/121817 ??? NA 140 140 143 ??? K 4.0 4.1 3.6 ??? CL 106 106 107 ??? CO2 27 24 25 ??? BUN 21* 18 13 ??? CREATININE 0.98 0.85 0.69* Recent Labs Basename 03/30/12 0118 03/29/12 0217 03/28/121817 ??? CALCIUM 8.8 8.7 8.9 8.9 ??? MAGNESIUM -- -- 0.86 ??? PHOS -- -- 3.3 No results found for this basename: AST:3,ALT:3,ALKPHOS:3,BILITOT:3,BILIDIR:3 in the last 72 hours Recent Labs Basename 03/30/12 0118 03/29/12 1926 03/29/12 1251 03/28/121817 ??? PT -- -- -- 14.6 ??? INR -- -- -- 1.1 ??? PTT 73* 85* 89* -- Recent Labs Basename 03/29/12 0738 03/29/12 0217 03/29/12 0023 03/28/121817 ??? CK 172* 197* Not Perf -- ??? TROPONINT 0.21* -- Not Perf 0.48* Imaging: - None new Diagnostics: EKG 03/29: sinus kenzie, still w/ non-specific ST-T changes in precordial leads Echo: TTE: 1. The left ventricular chamber size is normal. Basal septal hypertrophy is observed. Ejection fraction is estimated to be 60%. There is mild hypokinesis of the ogl-id-qnvojn lateral LV. 2. Right ventricular chamber size, wall thickness, and systolic function are within normal limits. 3. There is no hemodynamically significant valve disease. ASSESSMENT/PLAN: Mrs. Beckman is a 66F w/ h/o CAD w/ unclear history of [place] in 1977 at the age of 32, no ICM by TTE, h/o PAF (now in sinus, was previously on diltiazem), and hypothyroidism, who p/w chest and back pain w/ positive cardiac enzymes c/w NSTEMI. Back pain was initially concerning for aortic dissection, which has been effectively ruled out with a CTA. We are continuing ACS protocol: heparin gtt, ASA, b-daisy, statin, w/ anticipated cardiac catheterization in the AM. Her BP has been on the lower side,so we will hold off on an ACEi for the time being. Of note, pt has h/o prior CVA in 2005, giving her a CHADS2 score of 2 (prior CVA only, does not qualify for age, HTN, DM, or CHF), and this confers an intermediate risk of thromboembolic event (4.0% risk of event per year if no coumadin). Do feel that she should be anticoagulated w/ coumadin on discharge, and this should be taken into consideration if PCI is performed tomorrow so that we can minimize her plavix use w/ a bare metal stent (since she would then be on ASA, plavix, and coumadin). Detailed plan outlined below: # NSTEMI: - Reduce ASA to 81mg QD - Continue plavix 75 QD, atorvastatin 80 QD, metoprolol 50mg q6 - Continue heparin gtt - Continue NTG gtt as needed for pain control - Morphine PRN if NTG insufficient or pressures low - Anticipated cardiac cath tomorrow, 03/31 (will make NPO @ [facility]) - Consider addition of ACEi when BP can tolerate # A-fib: - Rate and rhythm currently controlled - Continue b-daisy as written above - Pt's CHADS2 score is 2 (prior CVA only) - consider starting coumadin at discharge w/ INR follow-up # Hypothyroidism: - Continue home levothyroxine 50 mcg QD # DVT ppx: on heparin gtt # Code status: Full code CARDIOLOGY STAFF NOTE Ioana Beckman is a 66 y.o. year-old female patient whom I saw today with Dr. Ritchie. I have personally interviewed and examined the patient and reviewed appropriate data, including labs, ECGs and other diagnostic studies. I agree with the principal findings documented above. The assessment and planwere formulated in discussion with me. #1 NSTEMI #2 Paroxysmal AF #3 History of posterior circulation stroke She remains essentially asymptomatic on the NTG infusion. Needs angiography tomorrow morning with intent to revascularize. Medical therapy as above. Jorge L Chowdhury M.D. Staff Director Funeral pager [phone] * Jorge L Chowdhury MD - 03/29/2012 5:56 AM EST Inpatient Cardiology Progress Note ID: 66 y.o. female with CAD, pAfib, AAA, who presented to OSH w/ chest and back pain, ruled in, transferred to [facility], now ruled out for dissection on heparin drip. Hospital Day 1 day Active Problems: NSTEMI 24 hour Events/Subjective: - aortic dissection negative -no major overnight events -CP improved on NTG gtt, no other symptoms Active Drips: Continuous Infusions: ??? heparin Stopped (03/29/12 0125) ??? nitroGLYcerin 5 mcg/min (03/29/12 0608) Active Medications: Scheduled Meds: ??? DILTiazem 300 mg Oral Daily ??? levothyroxine 50 mcg Oral QAM ??? sodium chloride 0.9 % 5 mL Intravenous Q12H ??? famotidine 20 mg Oral BID ??? aspirin 325 mg Oral Daily ??? clopidogrel 75 mg Oral Daily ??? metoprolol 12.5 mg Oral Q6H XANDER ??? atorvastatin 80 mg Oral QPM PRN Meds:.nitroGLYcerin, acetaminophen, heparin (porcine), morphine, iohexol Physical Examination: Vitals: Last value Range last 24 hrs Temperature Temp: 36.9 ??C (98.4 ??F) Temp: [36.2 ??C (97.2 ??F)-36.9 ??C (98.4 ??F)] Heart Rate Heart Rate: 50 Heart Rate: [50-61] Blood Pressure BP: 105/44 mmHg BP: (97-137)/(36-60) Respiratory Rate Resp: 18 Resp: [16-20] SpO2 SpO2: 97 % SpO2: [93 %-100 %] Intake/Output Summary (Last 24 hours) at 03/29/12 0853 Last data filed at 03/28/121999 Gross per 24 hour Intake 240 ml Output 300 ml Net -60 ml Gen: sitting in bed comfortable CV: RRR no murmurs Pulm: CTAB Abd: S NT ND Extr: wwp, no edema Neuro: grossly intact Laboratory: Recent Labs Basename 03/29/1221603/28/121817 ??? WBC 5.7 6.0 ??? HGB 14.4 14.5 ??? PLATELET 222 220 Recent Labs Basename 03/29/1221603/28/121817 ??? NA 140 143 ??? K 4.1 3.6 ??? CL 106 107 ??? CO2 24 25 ??? BUN 18 13 ??? CREATININE 0.85 0.69* Recent Labs Basename 03/29/1221603/28/121817 ??? CALCIUM 8.7 8.9 8.9 ??? MAGNESIUM -- 0.86 ??? PHOS -- 3.3 No results found for this basename: AST:3,ALT:3,ALKPHOS:3,BILITOT:3,BILIDIR:3 in the last 72 hours Recent Labs Basename 03/29/12 0738 03/29/123 03/28/121817 ??? PT -- -- 14.6 ??? INR -- -- 1.1 ??? PTT 109* 137* 129* Recent Labs Basename 03/29/1221603/29/12 0023 03/28/121817 ??? CK 197* Not Perf 236* ??? TROPONINT -- Not Perf 0.48* Imaging: CT 03/28 Impression 1. No evidence of aortic aneurysm or dissection. 2. Incidental 12 mm left adnexal cyst of doubtful clinical significance. If there is concern, transvaginal pelvic ultrasound could be obtained. Diagnostics: EKG: sinus kenzie, still w/ non-specific ST-T changes in precordial leads Echo: TTE: 1. The left ventricular chamber size is normal. Basal septal hypertrophy is observed. Ejection fraction is estimated to be 60%. There is mild hypokinesis of the hqu-ep-rcyasv lateral LV. 2. Right ventricular chamber size, wall thickness, and systolic function are within normal limits. 3. There is no hemodynamically significant valve disease. 4. See remainder of report for additional findings. Cardiac Catheterization: ASSESSMENT: 66 year old woman with CAD with unclear history of [place] in 1977 at age 32, no history of ICM by echo,paroxysmal afib most recently in sinus on dilt, hypothyroidism, transferred with positive troponin while at OSH. Back pain was concerning for dissection, which was ruled out with CT. Treating for NSTEMI with heparin drip, NTG drip for symptom control, ASA, BB, statin. Stopped dilt, starting metoprolol 50 mg q6h, will titrate for optimal double product control. Plan for cath Saturday. TREATMENT PLAN: Chest pain/back pain -NSTEMI -ASA 325, plavix 75 daily, atorvastatin 80 -stop dilt, start metoprolol 50 mg q6h -- plan to titrate metoprolol to maximize double product control -continue heparin -cont NTG gtt as needed for pain control -morphine PRN if NTG insufficient or pressures low -cycle enzymes -monitor on tele - cath Saturday A-fib: -rate and rhythm currently controlled -transitioning to metoprolol from dilt per above Hypothyroid -cont home levothyroxine 50 DVT proph: on heparin Code status: Full code Provider: DAVID HICKS MD Provider #: [id number] CARDIOLOGY STAFF NOTE Ioana Beckman is a 66 y.o. year-old female patient whom I saw today with Dr. Hicks. I have personally interviewed and examined the patient and reviewed appropriate data, including labs, ECGs andother diagnostic studies. I agree with the principal findings documented above. The assessment and plan were formulated in discussion with me. #1 NSTEMI #2 Paroxysmal AF #3 History of posterior circulation stroke CT negative for aortic pathology. Plan is for cath Saturday. Medical therapy as above. She is now asymptomatic. Will need anticoagulation for AF and other risk factors ([id number] = ~5). This should prompt consideration of a require a bare metal stent if PCI is performed. Jorge L Chowdhury M.D. Staff Director Funeral pager [phone] * Elise Inman RN - 03/28/2012 7:07 PM EST 19:[address] scan via stretcher accompanied by RN. Nitro gtt infusing. BP 126/43, HR 52. documented in this encounter H&P Notes * Jorge L Chowdhury MD - 03/28/2012 4:18 PM EST Cardiology Admission H&P Patient Name: Ioana Beckman Date of : 1945 Age: 66 y.o. Hospital Admit Date: 03/28/2012 Inpatient Attending: Dr. Chowdhury PCP: JENNIFER GAGNON MD Presenting Diagnosis/Chief Complaint: chest and back pain Active Problem List: NSTEMI History of Present Illness: HPI 66 year old woman with CAD with unclear history of [place] in 1977 at age 32, no history of ICM by echo,paroxysmal afib most recently in sinus on dilt, hypothyroidism, who presented to an OSH today with chest pain awaking her from her sleep and transferred to [facility] after ruling in with troponin. Her history of CAD sounds somewhat unclear -- there was a record of [place] 1977, at age 32, thought associatedwith control pills, but apparently subsequent echos have been negative, and we do not have records from the initial event and patient states has not had cath. Since that time she has not had chest pains or other concern for ischemia. She is currently very active, walking 2-3 miles per day without chest pain or SOB. She awoke from sleep at 3 am with pain in the left substernal area and left axilla, which she described as a dull pain with pressure. It subsequently began radiating to her back, between the shoulderblades. No SOB, N/V, diaphoresis. 45 minutes after pain started she arrived at [facility], where she received NTGx3 with no relief but subsequently had some improvement in her pain with morphine. She still had some mild back pain however, which was not relieved by meds. Her first set of enzymes at 5 am was negative. Her ECG showed ST-T changes in precordial leads (TWI/TW flattening), borderline bradycardia. Her vital signs were stable. Her 2nd troponin at 9 am was 2.8 (uln 0.06), and 3rd was 6.3 at 1 pm. She received ASA (unclear amount from records), plavix 300, and started on heparin drip. She was transferred to [facility] for further management. On arrival to the floor she remains free of CP or SOB, but with persistent 3/10 back pain. No recent history of orthopnea, BAILEY, LH, dizziness. OSH labs Trop neg at 5am, 2.79 at 9 am (uln 0.06), 6.32 at 1 pm d-dimer 615 wbc 5.7 hgb 14, cre 0.9 K 4 Mg 2.2 Past Medical History: CAD - s/p [place] 1977 at age 32, normal LVEF since then Paroxysmal afib, not on coumadin, now in sinus Posterior circulation CVA 2005 - negative head CT, p/w ataxia/dizziness Hypothyroidism Chronic low back pain GERD/hiatal hernia Vertigo NOS Significant Family History: Not obtained Social History: Never smoker Rare alcohol Lives with REVIEW OF SYSTEMS: Review of Systems gerd - better w/ meds, not similar to current pain Rectal bleeding from rrhoids Medications: ASA 81 mg Dilt 300 mg Levothyroxine 50 mcg Omeprazole 20 mg Allergies: NKDA PHYSICAL EXAM: Last set of vital signs: BP 120/58 Pulse 61 Temp 36.2 ??C (97.2 ??F) Resp 20 SpO2 100% R arm: 137/37 L arm 120/58 Physical Exam Gen: sitting in bed comfortable HEENT: NC/AT, MMM, PER, sclera anicteric Neck: no JVD appreciated, no bruits CV: RRR, kenzie Pulm: quiet breath sounds, no crackles heard Abd: S NT ND Extr: intact distal pulses, wwp, no edema Neuro: grossly intact Diagnostics: ECG: [facility] ECG pending LABS: [facility] labs pending ASSESSMENT: 66 year old woman with CAD with unclear history of [place] in 1977 at age 32, no history of ICM by echo,paroxysmal afib most recently in sinus on dilt, hypothyroidism, transferred with positive troponin while at OSH, initially chest pain now with back pain, concerning for NSTEMI vs. Aortic dissection. Because of substantial enzyme elevation and ECG changes c/w ischemia, presentation is most suggestive of NSTEMI. History of CAD unclear, but age, ASA use in last 7 days, +CBM, and possibly known CAD make her KIEL risk score 3-4. Plan is to obtain a CTA to rule out aortic dissection and plan for cath. Will continue heparin drip and start NTG drip to address symptoms. If symptoms not controlled on NTG drip and CTA negative will consider earlier cath time. Will continue medical management with BB, ASA, plavix, atorvastatin. Continue home dilt. TREATMENT PLAN: Chest pain/back pain -NSTEMI vs. Aortic dissection -CTA to r/o dissection -ASA 325, plavix 75 daily, atorvastatin 80, start low dose BB in addition to home dilt dose -continue heparin -ensure pressures well controlled -cycle enzymes -monitor on tele -TTE -likely cath if no dissection A-fib: -rate and rhythm currently controlled -continue dilt + BB Hypothyroid -cont home levothyroxine 50 DVT proph: on heparin Code status: Full code Provider: DAVID HICKS MD Provider #: [id number] CARDIOLOGY STAFF NOTE Ioana Beckman is a 66 y.o. year-old female patient whom I saw today with Dr. Hicks. I have personally interviewed and examined the patient and reviewed appropriate data, including labs, ECGs andother diagnostic studies. I agree with the principal findings documented above. The assessment and plan were formulated in discussion with me. #1 Acute chest and back (predominant) discomfort #2 NSTEMI #3 Paroxysmal AF He pain is predominantly in her back and is ongoing. Although she is now >12 hours into her symptom complex, we need to definitively rule out an acute aortic syndrome with CT now. Treatment for NSTEMI is ongoing. Her pain needs to be controlled if we are to wait on angiography. Will add NTG gtt and morphine as necessary (and rule out other pathology with CT as above). History of PAF and potential for treatment with warfarin will make bare-metal stenting an appropriate consideration when/if PCI is performed. Jorge L Chowdhury M.D. Staff Director Funeral pager [phone] documented in this encounter Procedure Notes * Provider, Scanning - 04/01/2012 11:09 AM ESTAssociated Order(s): SCAN DOC: CARDIAC CATH * Provider, Scanning - 04/01/2012 11:09 AM ESTAssociated Order(s): SCAN DOC: REVERSE LOGISTICS ANALYST * Provider, Scanning - 03/31/2012 12:09 PM ESTAssociated Order(s): CARDIAC CATHETERIZATION documented in this encounter Miscellaneous Notes * Miscellaneous - Provider, Scanning - 04/01/2012 11:09 AM EST * Miscellaneous - Provider, Scanning - 04/01/2012 11:09 AM EST * Miscellaneous - Provider, Scanning - 03/31/2012 4:32 PM EST * Discharge Summary - Jorge L Chowdhury MD - 03/31/2012 12:46 PM EST Images from the original note were not included. Inpatient Cardiology - Discharge Summary Patient Name: Ioana Beckman Patient Age: 66 y.o. Birthdate: 1945 Admit date: 03/28/2012 Discharge date : 03/31/2012 Attending Physician: Jorge L Chowdhury MD Discharge Diagnoses (Hospital Problems) and Secondary Diagnoses (Chronic Problems): #1 NSTEMI without significant obstructive lesion on coronary angiography #2 Paroxysmal AF with [id number] score of 4 #3 History of posterior circulation stroke See below for details and additions. Active Hospital Problems Diagnoses ??? CAD (coronary artery disease) Significant atherosclerosis of first septal Resolved Hospital Problems Diagnoses Date Resolved ??? NSTEMI (non-ST elevated myocardial infarction) 03/31/2012 There are no active non-hospital problems to display for this patient. Operations/Major Procedures: Operations: CARDIAC CATHETERIZATION - Procedure: Coronary Angiography LVEDP 6 LV-gram: mild hypokinesis of anterolateral wall, EF 70% Left dominant LM: normal LAD: normal; severe diffuse dz of entire 1st septal with decreased distal flow (KIEL 2) LCx: normal RCA: normal History of Presentation: 66 year old woman with CAD with unclear history of [place] in 1977 at age 32, no history of ICM by echo,paroxysmal afib most recently in sinus on dilt, hypothyroidism, who presented to an OSH today with chest pain awaking her from her sleep and transferred to [facility] after ruling in with troponin. Her history of CAD sounds somewhat unclear -- there was a record of [place] 1977, at age 32, thought associatedwith control pills, but apparently subsequent echos have been negative, and we do not have records from the initial event and patient states has not had cath. Since that time she has not had chest pains or other concern for ischemia. She is currently very active, walking 2-3 miles per day without chest pain or SOB. She awoke from sleep at 3 am with pain in the left substernal area and left axilla, which she described as a dull pain with pressure. It subsequently began radiating to her back, between the shoulderblades. No SOB, N/V, diaphoresis. 45 minutes after pain started she arrived at [facility], where she received NTGx3 with no relief but subsequently had some improvement in her pain with morphine. She still had some mild back pain however, which was not relieved by meds. Her first set of enzymes at 5 am was negative. Her ECG showed ST-T changes in precordial leads (TWI/TW flattening), borderline bradycardia. Her vital signs were stable. Her 2nd troponin at 9 am was 2.8 (uln 0.06), and 3rd was 6.3 at 1 pm. She received ASA (unclear amount from records), plavix 300, and started on heparin drip. She was transferred to [facility] for further management. On arrival to the floor she remains free of CP or SOB, but with persistent 3/10 back pain. No recent history of orthopnea, BAILEY, LH, dizziness. OSH labs Trop neg at 5am, 2.79 at 9 am (uln 0.06), 6.32 at 1 pm d-dimer 615 wbc 5.7 hgb 14, cre 0.9 K 4 Mg 2.2 Hospital Course: On admission to [facility], the patient had no complaints of chest pain or shortness of breath. Telemetry was attached which showed normal sinus rhythm. Heparin drip was infusing. [facility] records/transfer records were reviewed. Baseline labs were checked and/or drawn. NSTEMI Given the patient's risk factors and positive biomarkers, it was decided to proceed with coronary angiography. The patient went to the cardiac mill laborer for a diagnostic cath which showed severe disease of the first septal branch of the LAD, otherwise normal coronaries. The septal branch was not clearly a new lesion and was not intervened upon given the narrowness of the vessel. Medical managementwas optimized prior to discharge; she will not continue dual antiplatelet therapy as she was started on warfarin as below this admission. Paroxysmal atrial fibrillation The patient had intermittent atrial fibrillation that converted to sinus rhythm with rate control. Her CHADS2 score is =2 (hx of CVA), CHADS2-VASc score is = 4. She was discharged on warfarin and enoxaparin bridge for stroke prevention. Hyperlipidemia Lipid profile showed total cholesterol 206 with LDL 132. Patient was started on atorvastatin this admission. Hypertension The patient was continued on rate controlling medications that provided anti- hypertensive benefit. Routine screening labs revealed the following: HA1c 5.2, TSH 2.05 The patient was discharged home in stable condition. Important Studies and Lab Data: Labs: Lab Results Component Value Date WBC 5.6 03/31/2012 HGB 14.3 03/31/2012 HCT 42.0 03/31/2012 PLATELET 193 03/31/2012 Recent Labs Basename 03/28/12 1818 ??? INR 1.1 Lab Results Component Value Date NA 139 03/31/2012 K 4.1 03/31/2012 CL 106 03/31/2012 CO2 25 03/31/2012 BUN 21* 03/31/2012 CREATININE 0.96 03/31/2012 Recent Labs Basename 03/29/12 0217 ??? TSH 2.05 Recent Labs Basename 03/29/12 0217 ??? HA1C 5.2 Recent Labs Basename 03/29/12 0738 03/29/12 0217 03/29/12 0023 03/28/12 1818 ??? CK 172* 197* Not Perf -- ??? TROPONINT 0.21* -- Not Perf 0.48* Lab Results Component Value Date CHLPL 206* 03/29/2012 HDL 61 03/29/2012 CHOLHDL 3.4 03/29/2012 TRIG 66 03/29/2012 LDLCHOL 132* 03/29/2012 Studies: ECHO (03/29/12): 1. The left ventricular chamber size is normal. Basal septal hypertrophy is observed. Ejection fraction is estimated to be 60%. There is mild hypokinesis of the [id number] lateral LV. 2. Right ventricular chamber size, wall thickness, and systolic function are within normal limits. 3. There is no hemodynamically significant valve disease. 4. See remainder of report for additional findings. CTA chest and abdomen: 1. No evidence of aortic aneurysm or dissection. 2. Incidental 12 mm left adnexal cyst of doubtful clinical significance. If there is concern, transvaginal pelvic ultrasound could be obtained. Pending Studies and Lab Data: none Discharge Conditions/Prognosis: Stable Discharge to: Home Discharge Medications: Current Discharge Medication List New Meds Dose Details atorvastatin (LIPITOR) 40 mg 40 mg Take 40 mg by mouth every evening. Qty: 30 tablet Refills: 3 metoprolol succinate (TOPROL-XL) 50 mg 50 mg Take 50 mg by mouth daily. Qty: 30 tablet Refills: 12 nitroGLYcerin (NITROSTAT) 0.[address] 0.4 mg = 0.4 mg under the tongue every 5 minutes as needed for Chest pain. Qty: 90 tablet Refills: 3 warfarin (COUMADIN) 5 mg 5 mg Take 5 mg by mouth daily. Qty: 30 tablet Refills: 3 enoxaparin (LOVENOX) 100 mg 100 mg Inject 100 mg subcutaneously daily. Qty: 7 Syringe Refills: 2 Continued medications, unchanged Dose Details aspirin 81 mg 81 mg Take 81 mg by mouth daily. Qty: Refills: levothyroxine (SYNTHROID) 50 mcg 50 mcg Take 50 mcg by mouth daily. Qty: Refills: omeprazole (PRILOSEC) 20 mg 20 mg Take 20 mg by mouth daily. Qty: Refills: Medications STOPPED Dose DILTiazem (CARDIZEM CD) 300 mg 300 mg Updated Allergies/ADRs: No Known Allergies Follow-up Recommendations for Providers: 1) Please obtain ECHO with bubble study for evaluation of PFO that could explain coronary artery first septal of LAD occlusion 2) Goal INR 2.0-3.0 Instructions Given to Patient at Discharge: Provider Instructions Instruction after leaving the hospital Why you were hospitalized: Chest pain Call your doctor if: Chest pain, shortness of breath, pain or swelling in legs occurs. If you have non-emergent questions between now and the time of your follow up appointments: During 8am-5pm Saturday through Saturday call [phone] to speak with a nurse in the cardiology clinic All other times call [phone] and ask to speak to the dry mill worker operational assistant. Activity level: as tolerated Diet: low-cholesterol, low-fat Return to work: One week Driving: No driving for 48 hours after catheterization. Specific instructions related to your condition: Your prescriptions have been e-scripted to [facility] in [place], [place] Your Inpatient Doctor(s) at [facility]: Dr. Jorge L Chowdhury Anticoagulation follow-up: Dr. Gagnon's office Follow up Appointments: PCP - Dr. Gagnon, @ 3:45pm Director Funeral - Dr. Esvin Acevedo, [facility], SaturdayApr.25 @ 10:30am Home oxygen therapy: N/A Arrangements for VNA/home care: none General Instructions None Provider Contact Information: Please call [facility] at [phone] and ask to speak with the registered dietitian on-call. Discharge References/Attachments: Discharge References/Attachments None Signed: SHELIA CONNOLLY MD DATE: 03/31/2012 Cardiology Staff Addendum: I was the attending physician of record at the time of this patient's discharge. I agree with the information documented above. For any questions or issues regarding this hospitalization please feel free to contact me at . Jorge L Chowdhury M.D. * Med Student Progress Note - Obed Tyler - 03/31/2012 11:50 AM EST ID: 66 year old female with history of CVA (2005), CAD, paroxysmal a-fib and hypothyroidism who presented to outside hospital on 03/28 with chest pain and pressure radiating to the back, found to haveTWI/TW flattening on ECG and elevated troponin. Transferred to [facility] for management of NSTEMI. O/N Events: 1. Nitro drip stopped Subjective: No further chest or shoulder pain after nitro drip stopped, had some mild belly pain that she attributes to nerves, has not been having regular BMs ROS: Denies CP/SOB/n/v/d Vitals: Temp: [36.2 ??C (97.2 ??F)-37 ??C (98.6 ??F)] Heart Rate: [55-70] Resp: [18] BP: (102-129)/(32-49) SpO2: [96 %-98 %] I/O: Intake/Output Summary (Last 24 hours) at 03/31/12 1150 Last data filed at 03/31/12 0848 Gross per 24 hour Intake 598 ml Output 1275 ml Net -677 ml PE: Gen: Lying comfortably in bed, NAD Pulm: CTAB, normal effort of breathing CV: Bradycardic, regular rhythm, no m/r/g, no elevation in JVP Abd: Soft, non-tender, non-distended Ext: WWP, 2+ distal pulses Labs and cultures: CBC (WITH DIFF) Component Value Range ??? WBC 5.6 4.0 - 10.0 (x10(3)/mcL) ??? RBC 4.60 3.93 - 5.22 (x10(6)/mcL) ??? Hemoglobin 14.3 11.2 - 15.7 (gm/dL) ??? Hematocrit 42.0 34.0 - 45.0 (%) ??? MCV 91.3 79.0 - 94.0 (fL) ??? MCH 31.1 26.6 - 32.2 (pg) ??? MCHC 34.0 32.0 - 36.5 (gm/dL) ??? Platelets 193 145 - 370 (x10(3)/mcL) ??? RDWSD 43.8 35.0 - 46.0 (fL) ??? RDWCV 13.1 10.9 - 14.4 (%) ??? MPV 9.8 9.0 - 12.0 (fL) BASIC METABOLIC PANEL (NON-FASTING) Component Value Range ??? Glucose Lvl 102 60 - 199 (mg/dL) ??? BUN 21 (*) 8 - 18 (mg/dL) ??? Creatinine 0.96 0.70 - 1.20 (mg/dL) ??? Sodium 139 135 - 145 (mmol/L) ??? Potassium 4.1 3.5 - 5.0 (mmol/L) ??? Chloride 106 98 - 107 (mmol/L) ??? CO2 25 22 - 31 (mmol/L) ??? Anion Gap 8 5 - 15 (mmol/L) ??? Calcium 9.0 8.5 - 10.5 (mg/dL) ? ? Estimated GFR 58 (*) >=60 A/P: 66 year old female with history of CAD, paroxysmal a-fib and hypothyroidism who presented to outside hospital on 03/28 with chest pain and pressure radiating to the back, found to have TWI/TW flattening on ECG and elevated troponin. Transferred to [facility] for management of NSTEMI. Presentation somewhat concerning for aortic dissection, but this has now been ruled out with normal CTA. Pain relieved with nitroglycerin drip and has not returned with drip stopped. 1. NSTEMI: Plan for cardiac cath today. DC heparin drip post cath. Continue ASA, atorvastatin 80, plavix 75, metoprolol 12.5 q6. 2. Paroxysmal a-fib: CHADS2 vasc score of 5 for prior CVA, age >65, CAD and gender suggest that patient should be anticoagulated with coumadin because of risk for stroke or systemic embolic event.However, if patient receives a stent requiring plavix therapy, must consider bleeding risk with triple therapy. Will re-assess and discuss with patient post-cath. 3. Hypothyroidism: TSH normal on admission, continue home dose of levothyroxine. * Plan of Care - Tonya Anna RN - 03/30/2012 6:05 PM EST Problem: Pain, Acute (Adult, Obstetric) Goal: Acute Pain: Acceptable Pain Control/Comfort Level - Pain, Acute (Adult, Obstetric) Patient was pain free and titrated off nitro gtt this morning at 9 am. She has remained pain free all day and has been walking independently in unit, denies pain/sob. Patient will be NPO after midnight for cath per MD order. * Plan of Care - Elise Inman RN - 03/29/2012 3:41 PM EST Problem: Pain, Acute (Adult, Obstetric) Goal: Acute Pain: Acceptable Pain Control/Comfort Level - Pain, Acute (Adult, Obstetric) Outcome: Absent and monitoring Patient denies chest or back pain. Ambulated with RN without complaint. Family at bedside. Nitro gtt remains at 5 mcg/min. * Med Student Progress Note - Obed Tyler - 03/29/2012 3:07 PM EST ID: 66 year old female with history of CAD, paroxysmal a-fib and hypothyroidism who presented to outside hospital on 03/28 with chest pain and pressure radiating to the back, found to have TWI/TW flattening on ECG and elevated troponin. Transferred to [facility] for management of NSTEMI. O/N Events: 1. CTA without evidence of aortic dissection Subjective: Chest and shoulder pain resolved with nitro drip, no further pain overnight except for mild headache, which resolved with tylenol ROS: Denies SOB/n/v/d/fevers/chills Vitals: Temp: [36.5 ??C (97.7 ??F)-36.9 ??C (98.4 ??F)] Heart Rate: [50-60] Resp: [16-20] BP: (97-126)/(36-63) SpO2: [93 %-100 %] I/O: Intake/Output Summary (Last 24 hours) at 03/29/12 1507 Last data filed at 03/29/12 1200 Gross per 24 hour Intake 480 ml Output 700 ml Net -220 ml PE: Gen: Lying comfortably in bed, NAD Pulm: CTAB, normal effort of breathing CV: Bradycardic, regular rhythm, no m/r/g, no elevation in JVP Abd: Soft, non-tender, non-distended Ext: WWP, 2+ distal pulses Labs and cultures: CALCIUM Component Value Range ??? Calcium 8.9 8.5 - 10.5 (mg/dL) MAGNESIUM Component Value Range ??? Magnesium 0.86 0.69 - 1.07 (mmol/L) PHOSPHORUS Component Value Range ??? Phosphorus 3.3 2.5 - 4.5 (mg/dL) LIPID PANEL (FASTING) Component Value Range ? ? Chol, Total 206 (*) <=199 (mg/dL) ? ? Triglycerides 66 <=149 (mg/dL) ? ? HDL 61 >=40 (mg/dL) ? ? LDL Cholesterol 132 (*) <=99 (mg/dL) ??? Chol/HDL Ratio 3.4 (ratio) HEMOGLOBIN A1C Component Value Range ??? Hemoglobin A1C 5.2 4.3 - 6.1 (%) ??? Est Avg Gluc 103 (mg/dL) TSH Component Value Range ??? TSH 2.05 0.27 - 4.20 (mcIU/mL) CBC (WITH DIFF) Component Value Range ??? WBC 5.7 4.0 - 10.0 (x10(3)/mcL) ??? RBC 4.71 3.93 - 5.22 (x10(6)/mcL) ??? Hemoglobin 14.4 11.2 - 15.7 (gm/dL) ??? Hematocrit 43.4 34.0 - 45.0 (%) ??? MCV 92.1 79.0 - 94.0 (fL) ??? MCH 30.6 26.6 - 32.2 (pg) ??? MCHC 33.2 32.0 - 36.5 (gm/dL) ??? Platelets 222 145 - 370 (x10(3)/mcL) ??? RDWSD 43.5 35.0 - 46.0 (fL) ??? RDWCV 13.0 10.9 - 14.4 (%) ??? MPV 10.0 9.0 - 12.0 (fL) BASIC METABOLIC PANEL (NON-FASTING) Component Value Range ??? Glucose Lvl 98 60 - 199 (mg/dL) ??? BUN 18 8 - 18 (mg/dL) ??? Creatinine 0.85 0.70 - 1.20 (mg/dL) ??? Sodium 140 135 - 145 (mmol/L) ??? Potassium 4.1 3.5 - 5.0 (mmol/L) ??? Chloride 106 98 - 107 (mmol/L) ??? CO2 24 22 - 31 (mmol/L) ??? Anion Gap 10 5 - 15 (mmol/L) ??? Calcium 8.7 8.5 - 10.5 (mg/dL) ? ? Estimated GFR >60 >=60 Component Value Range ? ? Troponin-T 0.21 (*) <=0.03 (ng/mL) ??? CK, Total 172 (*) 0 - 160 (unit/L) Imaging and studies: CTA abd and pelvis: 1. No evidence of aortic aneurysm or dissection. 2. Incidental 12 mm left adnexal cyst of doubtful clinical significance. A/P: 66 year old female with history of CAD, paroxysmal a-fib and hypothyroidism who presented to outside hospital on 03/28 with chest pain and pressure radiating to the back, found to have TWI/TW flattening on ECG and elevated troponin. Transferred to [facility] for management of NSTEMI. Presentation somewhat concerning for aortic dissection, but this has now been ruled out with normal CTA. Pain relieved overnight with nitroglycerin drip. 1. NSTEMI: Plan for cardiac cath on Saturday, sooner if CP returns and is refractory to nitroglycerin. Continue nitro drip PRN for chest pain. Continue ASA, atorvastatin 80, plavix 75, metoprolol 12.5 q6 and heparin drip. 2. Paroxysmal a-fib: CHADS2 vasc score of 3 suggest that patient should be anticoagulated with coumadin because of risk for stroke or systemic embolic event. Will discuss the risks and benefits of this with the patient today. Continue diltiazem at home dose. 3. Hypothyroidism: TSH normal on admission, continue home dose of levothyroxine. * Miscellaneous - Provider, Scanning - 03/28/2012 3:38 PM EST documented in this encounter Plan of Treatment Not on file documented as of this encounter Procedures Procedure Name Priority Date/Time Associated Diagnosis Comments REVERSE LOGISTICS ANALYST SCAN 04/01/2012 11:09 AM EST CARDIAC CATH SCAN 04/01/2012 11: 09 AM EST CARDIAC CATHETERIZATION Routine 03/31/20 12:01 PM EST APTT STAT 03/31/2012 8:48 AM EST DIFFERENTIAL, AUTOMATED Routine 03/31/20 12:44 AM EST APTT STAT 03/31/2012 12:44 AM EST CBC (WITH DIFF) Routine 03/31/2012 12:44 AM EST BASIC METABOLIC PANEL Routine 03/31/2012 12:44 AM EST APTT STAT 03/30/2012 4:24 PM EST APTT STAT 03/30/2012 11:34 AM EST APTT STAT 03/30/2012 6:33 AM EST DIFFERENTIAL, AUTOMATED Routine 03/30/20 1:18 AM EST APTT STAT 03/30/2012 1:18 AM EST CBC (WITH DIFF) Routine 03/30/2012 1:18 AM EST BASIC METABOLIC PANEL Routine 03/30/2012 1:18 AM EST APTT STAT 03/29/2012 7:26 PM EST APTT STAT 03/29/2012 12:51 PM EST CARDIAC ENZYMES ([facility]) STAT 03/29/2012 7:38 AM EST APTT STAT 03/29/2012 7:38 AM EST DIFFERENTIAL, AUTOMATED Routine 03/29/20 2:17 AM EST CBC (WITH DIFF) Routine 03/29/2012 2:17 AM EST TSH Routine 03/29/2012 2:17 AM EST HEMOGLOBIN A1C Routine 03/29/2012 2:17 AM EST CK Routine 03/29/2012 2:17 AM EST LIPID PANEL (REFLEX DIRECT LDL) Routine 03/29/2012 2:17 AM EST BASIC METABOLIC PANEL Routine 03/29/2012 2:17 AM EST CARDIAC ENZYMES ([facility]) Routine 03/29/2012 12:23 AM EST APTT STAT 03/29/2012 12:[address] ANGIOGRAM OF CHEST AND ABDOMEN W CONTRAST Routine 03/28/2012 7:28 PM EST DIFFERENTIAL, AUTOMATED Routine 03/28/20 6:18 PM EST CARDIAC ENZYMES ([facility]) Routine 03/28/2012 6:18 PM EST APTT Routine 03/28/2012 6:18 PM EST PROTHROMBIN TIME Routine 03/28/2012 6:18 PM EST CBC (WITH DIFF) Routine 03/28/2012 6:18 PM EST PHOSPHORUS Routine 03/28/2012 6:18 PM EST MAGNESIUM Routine 03/28/2012 6:18 PM EST CALCIUM Routine 03/28/2012 6:18 PM EST BASIC METABOLIC PANEL Routine 03/28/2012 6:18 PM EST ECHOCARDIOGRAM TRANSTHORACIC Routine 03/28/2012 5:22 PM EST NSTEMI (non-ST elevated myocardial infarction) EKG 12-LEAD Routine 03/28/2012 4:07 PM EST NSTEMI (non-ST elevated myocardial infarction) CARDIAC CATHETERIZATION cad documented in this encounter Results * SCAN DOC: REVERSE LOGISTICS ANALYST (04/01/2012 11:09 AM EST) Anatomical Region Laterality Modality Other Narrative 04/01/2012 1:06 PM EST Procedure Note Provider, Scanning - 04/01/2012 11:09 AM EST Scanning Provider MEDIA MGR SCAN EXT O RDR/RSLT * SCAN DOC: CARDIAC CATH (04/01/2012 11:09 AM EST) Anatomical Region Laterality Modality Other Narrative 04/01/2012 1:06 PM EST Procedure Note Provider, Scanning - 04/01/2012 11:09 AM EST Scanning Provider MEDIA MGR SCAN EXT O RDR/RSLT * Cardiac Catheterization (03/31/2012 12:01 PM EST) Anatomical Region Laterality Modality Other Narrative 03/31/2012 12:09 PM EST Procedure Note Provider, Scanning - 03/31/2012 12:09 PM EST Jorge L Chowdhury MD CARDIAC CATH ORDERAB LES * (ABNORMAL) APTT (03/31/2012 8:48 AM EST) Partial Thromboplastin Time 124(H) 25 - 35 sec CERNER MILLENNIUM Comment: Recommended therapeutic PTT range for full dose unfractionated heparin is 80-114 seconds. Blood specimen (specimen) 03/31/2012 8:48 AM EST 03/31/2012 8:55 AM EST Narrative Resulting Agency Comment Spec In Lab Jorge L Chodwhury MD HEMATOLOGY ORDERABLE S CERNER MILLENNIUM * DIFFERENTIAL, AUTOMATED (03/31/2012 12:44 AM EST) Neutrophil % 43.7 34.0 - 71.0 % CERNER MILLENNIUM Neutrophil Absolute 2.47 1.50 - 6.30 x10(3)/mcL CERNER MILLENNIUM Lymph % 39.5 19.0 - 53.0 % CERNER MILLENNIUM Lymphocytes Abs 2.2 1.0 - 3.6 x10(3)/mcL CERNER MILLENNIUM Monocyte % 11.2 4.0 - 13.0 % CERNER MILLENNIUM Monocyte Abs 0.6 0.2 - 1.0 x10(3)/mcL CERNER MILLENNIUM Eos % 4.4 0.0 - 7.0 % CERNER MILLENNIUM Eosinophils Abs 0.2 0.0 - 0.5 x10(3)/mcL CERNER MILLENNIUM Basophil % 1.2 0.0 - 2.0 % CERNER MILLENNIUM Baso Absolute 0.1 0.0 - 0.2 x10(3)/mcL CERNER MILLENNIUM Immature Gran % 0.00 0.00 - 0.66 % CERNER MILLENNIUM Comment: Immature granulocytes(IG's)percentage and absolute count will include metamyelocytes, myelocytes, and promyelocytes. Blood smears from CBCs yielding IG's will be scanned manually for concordance. If this scan disagrees with the automated IG or if promyelocytes are noted, a manual differential will be performed. Immature Gran Absolute 0.00 0.00 - 0.05 x10(3)/mcL CERNER MILLENNIUM Blood specimen (specimen) 03/31/2012 12:44 AM EST 03/31/2012 12:48 AM EST Jorge L Chowdhury MD HEMATOLOGY ORDERABLE S CERNER CHITRAENNIUM * (ABNORMAL) Basic Metabolic Panel (non-fasting) (03/31/2012 12:44 AM EST) Glucose 102 60 - 199 mg/dL CERNER MILLENNIUM Comment:Diabetes: >=200 mg/d L plus symptoms Blood Urea Nitrogen 21(H) 8 - 18 mg/dL CERNER MILLENNIUM Creatinine 0.96 0.70 - 1.20 mg/dL CERNER MILLENNIUM Comment: Please note that the pediatric reference intervals supplied above were not validated at [facility]. Results from pediatric patients should be interpreted in conjunction to the patient's age, height and muscle mass. Sodium 139 135 - 145 mmol/L CERNER MILLENNIUM Potassium 4.1 3.5 - 5.0 mmol/L CERNER MILLENNIUM Comment: Please note: ??Patients with WBC >100,000 may have falsely elevated Potassium levels. ??For accurate Potassium quantification in these patients send serum separator tube (gold top) for subsequent determinations. ??Contact the Clinical Chemistry Laboratory if there are any questions. Chloride 106 98 - 107 mmol/L CERNER MILLENNIUM Carbon Dioxide 25 22 - 31 mmol/L CERNER MILLENNIUM Anion Gap 8 5 - 15 mmol/L CERNER MILLENNIUM Calcium 9.0 8.5 - 10.5 mg/dL CERNER MILLENNIUM Est Glomerular Filtration Rate 58(L) >=60 CERNER MILLENNIUM Comment: The National Kidney Disease Education Program (NKDEP) has recommended all laboratories report estimated GFR (eGFR) along with plasma creatinine measurements to assist you with recognition of early kidney disease. Caveats: ??Plasma creatinine should be at steady-state (unchanged within the past week). For patients multiply eGFR by 1.2. The MDRD equation was developed using patients between the ages of 18 and 70 years. ?? The MDRD equation has not been validated for patients < 18 years of age and should not be used to assess renal function in the pediatric population. ??The MDRD eGFR equation will also overestimate the true GFR of patients above the age of 70. ??This overestimation is variable but increases with age. At present, NKDEP does NOT recommend using the MDRD equation for drug dosing purposes and pharmacists should continue to use their current dosing methods. In addition, numerical eGFR values greater than 60 ml/min/1.73 square meters should be treated as > 60, and not an exact number due to greater inaccuracies at these higher values. Per NKDEP, they classify normal renal function as any GFR >60ml/min/1.73 square meters; chronic kidney disease when GFR <60, and renal failure when GFR <15. ??This calculation may not be valid for patients with atypical muscle mass (very lean or obese), acute renal failure, and in patients with diabetic kidney disease. References: http://nkdep.nih.gov/resources/NKDEP_Suggestn4Labs_0606_508.pdf http://www.kidney.org/professionals/kls/pdf/faq_gfr.pdf Saud K, Lilliam NA, Janett AK, Wing TS, Singh AD, Daniele VERNON. Relative performance of the MDRD and CKD-EPI equations for estimating glomerular filtration rate among patients with varied clinical presentations. Clin J Am Soc Nephrol;6:1963-72. Blood specimen (specimen) 03/31/2012 12:44 AM EST 03/31/2012 12:48 AM EST Narrative Resulting Agency Comment Spec In Lab Jorge L Chowdhury MD CHEMISTRY ORDERABLES RASHI LINARES * CBC (with Diff) (03/31/2012 12:44 AM EST) White Blood Cell 5.6 4.0 - 10.0 x10(3)/mcL RASHI MILLBABAKIUM Red Blood Cell 4.60 3.93 - 5.22 x10(6)/mcL RASHI MILLENNIUM Hemoglobin 14.3 11.2 - 15.7 gm/dL RASHI MILLENNIUM Hematocrit 42.0 34.0 - 45.0 % CERNER MILLENNIUM Mean Cell Volume 91.3 79.0 - 94.0 fL CERNER MILLENNIUM Mean Cell Hemoglobin 31.1 26.6 - 32.2 pg CERNER MILLENNIUM Mean Cell Hemoglobin Concentration 34.0 32.0 - 36.5 gm/dL CERNER MILLENNIUM Platelet 193 145 - 370 x10(3)/mcL CERNER MILLENNIUM RDW Standard Deviation 43.8 35.0 - 46.0 fL CERNER MILLENNIUM RDW coefficient of variation 13.1 10.9 - 14.4 % CERNER MILLENNIUM Mean Platelet Volume 9.8 9.0 - 12.0 fL CERNER MILLENNIUM Blood specimen (specimen) 03/31/2012 12:44 AM EST 03/31/2012 12:48 AM EST Narrative Resulting Agency Comment Spec In Lab Jorge L Chowdhury MD HEMATOLOGY ORDERABLE S Performing Organization Address [facility] Co de Phone Number CERPINKY MILLENNIUM * (ABNORMAL) APTT (03/31/2012 12:44 AM EST) Partial Thromboplastin Time 113(H) 25 - 35 sec CERNER MILLENNIUM Comment: Recommended therapeutic PTT range for full dose unfractionated heparin is 80-114 seconds. Blood specimen (specimen) 03/31/2012 12:44 AM EST 03/31/2012 12:48 AM EST Narrative Resulting Agency Comment Spec In Lab Jorge L Chowdhury MD HEMATOLOGY ORDERABLE S Performing Organization Address City/[facility] Co de Phone Number CERPINKY BUENROSTROENNIUM * (ABNORMAL) APTT (03/30/2012 4:24 PM EST) Partial Thromboplastin Time 114(H) 25 - 35 sec CERNER MILLENNIUM Comment: Recommended therapeutic PTT range for full dose unfractionated heparin is 80-114 seconds. Blood specimen (specimen) 03/30/2012 4:24 PM EST 03/30/2012 4:41 PM EST Narrative Resulting Agency Comment Spec In Lab Jorge L Chowdhury MD HEMATOLOGY ORDERABLE S CERPINKY BUENROSTROENNIUM * (ABNORMAL) APTT (03/30/2012 11:34 AM EST) Partial Thromboplastin Time 114(H) 25 - 35 sec CERNER MILLENNIUM Comment: Recommended therapeutic PTT range for full dose unfractionated heparin is 80-114 seconds. Blood specimen (specimen) 03/30/2012 11:34 AM EST 03/30/2012 11:40 AM EST Narrative Resulting Agency Comment Spec In Lab Jorge L Chowdhury MD HEMATOLOGY ORDERABLE S Performing Organization Address City/[facility]/ZIP Co de Phone Number RASHI BUENROSTROENNIUM * (ABNORMAL) APTT (03/30/2012 6:33 AM EST) Partial Thromboplastin Time 112(H) 25 - 35 sec CERNER MILLENNIUM Comment: Recommended therapeutic PTT range for full dose unfractionated heparin is 80-114 seconds. Blood specimen (specimen) 03/30/2012 6:33 AM EST 03/30/2012 6:45 AM EST Narrative Resulting Agency Comment Spec In Lab Jorge L Chowdhury MD HEMATOLOGY ORDERABLE S Performing Organization Address City/[facility]/ZIP Co de Phone Number CERPINKY BUENROSTROENNIUM * DIFFERENTIAL, AUTOMATED (03/30/2012 1:18 AM EST) Neutrophil % 43.4 34.0 - 71.0 % CERNER MILLENNIUM Neutrophil Absolute 2.72 1.50 - 6.30 x10(3)/mcL CERNER MILLENNIUM Lymph % 39.5 19.0 - 53.0 % CERNER MILLENNIUM Lymphocytes Abs 2.5 1.0 - 3.6 x10(3)/mcL CERNER MILLENNIUM Monocyte % 11.5 4.0 - 13.0 % CERNER MILLENNIUM Monocyte Abs 0.7 0.2 - 1.0 x10(3)/mcL CERNER MILLENNIUM Eos % 4.0 0.0 - 7.0 % CERNER MILLENNIUM Eosinophils Abs 0.2 0.0 - 0.5 x10(3)/mcL CERNER MILLENNIUM Basophil % 1.4 0.0 - 2.0 % CERNER MILLENNIUM Baso Absolute 0.1 0.0 - 0.2 x10(3)/mcL CERNER MILLENNIUM Immature Gran % 0.20 0.00 - 0.66 % CERNER MILLENNIUM Comment: Immature granulocytes(IG's)percentage and absolute count will include metamyelocytes, myelocytes, and promyelocytes. Blood smears from CBCs yielding IG's will be scanned manually for concordance. If this scan disagrees with the automated IG or if promyelocytes are noted, a manual differential will be performed. Immature Gran Absolute 0.01 0.00 - 0.05 x10(3)/mcL CERNER MILLENNIUM Blood specimen (specimen) 03/30/2012 1:18 AM EST 03/30/2012 1:27 AM EST Jorge L Chowdhury MD HEMATOLOGY ORDERABLE S CERNER MILLENNIUM * (ABNORMAL) Basic Metabolic Panel (non-fasting) (03/30/2012 1:18 AM EST) Glucose 99 60 - 199 mg/dL CERNER MILLENNIUM Comment:Diabetes: >=200 mg/d L plus symptoms Blood Urea Nitrogen 21(H) 8 - 18 mg/dL CERNER MILLENNIUM Creatinine 0.98 0.70 - 1.20 mg/dL CERNER MILLENNIUM Comment: Please note that the pediatric reference intervals supplied above were not validated at [facility]. Results from pediatric patients should be interpreted in conjunction to the patient's age, height and muscle mass. Sodium 140 135 - 145 mmol/L CERNER MILLENNIUM Potassium 4.0 3.5 - 5.0 mmol/L CERNER MILLENNIUM Comment: Please note: ??Patients with WBC >100,000 may have falsely elevated Potassium levels. ??For accurate Potassium quantification in these patients send serum separator tube (gold top) for subsequent determinations. ??Contact the Clinical Chemistry Laboratory if there are any questions. Chloride 106 98 - 107 mmol/L CERNER MILLENNIUM Carbon Dioxide 27 22 - 31 mmol/L CERNER MILLENNIUM Anion Gap 7 5 - 15 mmol/L CERNER MILLENNIUM Calcium 8.8 8.5 - 10.5 mg/dL CERNER MILLENNIUM Est Glomerular Filtration Rate 57(L) >=60 CERNER MILLENNIUM Comment: The National Kidney Disease Education Program (NKDEP) has recommended all laboratories report estimated GFR (eGFR) along with plasma creatinine measurements to assist you with recognition of early kidney disease. Caveats: ??Plasma creatinine should be at steady-state (unchanged within the past week). For patients multiply eGFR by 1.2. The MDRD equation was developed using patients between the ages of 18 and 70 years. ?? The MDRD equation has not been validated for patients < 18 years of age and should not be used to assess renal function in the pediatric population. ??The MDRD eGFR equation will also overestimate the true GFR of patients above the age of 70. ??This overestimation is variable but increases with age. At present, NKDEP does NOT recommend using the MDRD equation for drug dosing purposes and pharmacists should continue to use their current dosing methods. In addition, numerical eGFR values greater than 60 ml/min/1.73 square meters should be treated as > 60, and not an exact number due to greater inaccuracies at these higher values. Per NKDEP, they classify normal renal function as any GFR >60ml/min/1.73 square meters; chronic kidney disease when GFR <60, and renal failure when GFR <15. ??This calculation may not be valid for patients with atypical muscle mass (very lean or obese), acute renal failure, and in patients with diabetic kidney disease. References: http://nkdep.nih.gov/resources/NKDEP_Suggestn4Labs_0606_508.pdf http://www.kidney.org/professionals/kls/pdf/faq_gfr.pdf Saud K, Lilliam NA, Janett AK, Wing TS, Singh AD, Daniele VERNON. Relative performance of the MDRD and CKD-EPI equations for estimating glomerular filtration rate among patients with varied clinical presentations. Clin J Am Soc Nephrol;6:1963-72. Blood specimen (specimen) 03/30/2012 1:18 AM EST 03/30/2012 1:27 AM EST Narrative Resulting Agency Comment Spec In Lab Jorge L Chowdhury MD CHEMISTRY ORDERABLES Performing Organization Address [facility] de Phone Number CERPINKY BUENROSTROENNIUM * CBC (with Diff) (03/30/2012 1:18 AM EST) White Blood Cell 6.3 4.0 - 10.0 x10(3)/mcL CERNER MILLENNIUM Red Blood Cell 4.63 3.93 - 5.22 x10(6)/mcL CERNER MILLENNIUM Hemoglobin 14.2 11.2 - 15.7 gm/dL CERNER MILLENNIUM Hematocrit 42.5 34.0 - 45.0 % CERNER MILLENNIUM Mean Cell Volume 91.8 79.0 - 94.0 fL CERNER MILLENNIUM Mean Cell Hemoglobin 30.7 26.6 - 32.2 pg CERNER MILLENNIUM Mean Cell Hemoglobin Concentration 33.4 32.0 - 36.5 gm/dL CERNER MILLENNIUM Platelet 196 145 - 370 x10(3)/mcL CERNER MILLENNIUM RDW Standard Deviation 44.2 35.0 - 46.0 fL CERNER MILLENNIUM RDW coefficient of variation 13.3 10.9 - 14.4 % CERNER MILLENNIUM Mean Platelet Volume 10.0 9.0 - 12.0 fL CERNER MILLENNIUM Blood specimen (specimen) 03/30/2012 1:18 AM EST 03/30/2012 1:27 AM EST Narrative Resulting Agency Comment Spec In Lab Jorge L Chowdhury MD HEMATOLOGY ORDERABLE S Performing Organization Address [facility] de Phone Number RASHI BUENROSTROENNIUM * (ABNORMAL) APTT (03/30/2012 1:18 AM EST) Partial Thromboplastin Time 73(H) 25 - 35 sec CERNER MILLENNIUM Comment: Recommended therapeutic PTT range for full dose unfractionated heparin is 80-114 seconds. Blood specimen (specimen) 03/30/2012 1:18 AM EST 03/30/2012 1:27 AM EST Narrative Resulting Agency Comment Spec In Lab Jorge L Chowdhury MD HEMATOLOGY ORDERABLE S Performing Organization Address [facility] Co de Phone Number CERPINKY BUENROSTROENNIUM * (ABNORMAL) APTT (03/29/2012 7:26 PM EST) Partial Thromboplastin Time 85(H) 25 - 35 sec LILYPINKY BUENROSTROENNIUM Comment: Recommended therapeutic PTT range for full dose unfractionated heparin is 80-114 seconds. Blood specimen (specimen) 03/29/2012 7:26 PM EST 03/29/2012 7:34 PM EST Narrative Resulting Agency Comment Spec In Lab Jorge L Chowdhury MD HEMATOLOGY ORDERABLE S Performing Organization Address [facility] Co de Phone Number RASHI LINARES * (ABNORMAL) APTT (03/29/2012 12:51 PM EST) Partial Thromboplastin Time 89(H) 25 - 35 sec RASHI MILAGROS Comment: Recommended therapeutic PTT range for full dose unfractionated heparin is 80-114 seconds. Blood specimen (specimen) 03/29/2012 12:51 PM EST 03/29/2012 12:57 PM EST Narrative Resulting Agency Comment Spec In Lab Jorge L Chowdhury MD HEMATOLOGY ORDERABLE S Performing Organization Address [facility] de Phone Number RASHI LINARES * (ABNORMAL) Cardiac Enzymes (03/29/2012 7:38 AM EST) Troponin-T 0.21(H) <=0.03 ng/mL RASHI [employer]AVENLY Comment: 0.03 ng/mL: Represents the 99th percentile upper reference limit for normals. >0.03 ng/mL: Elevated cardiac troponin T level indicative of myocardial damage. Diagnosis of acute, evolving or recent [place] requires a typical rise and gradual fall of cTnT with at least ONE of the following: a) Ischemic symptoms b) Development of pathologic Q waves on the ECG c) ECG changes indicative of eschemia (S-T segment elevation/depression) d) Coronary artery intervention Serial bloods should be obtained for testing on admission, at 6 to 9 hrs and again at 12 to 24 hrs if earlier samples are negative and the clinical index of suspicion is high. Reference: [Myocardial infarction redefined a consensus document of the Joint Society of Cardiology/[place] College of Cardiology Committee for the redefinition of myocardial infarction. Journal of the [place] College of Cardiology 2000; 36: 959-969] Creatine Kinase 172(H) 0 - 160 unit/L CERNER MILLENNIUM Blood specimen (specimen) 03/29/2012 7:38 AM EST 03/29/2012 7:42 AM EST Narrative Resulting Agency Comment Spec In Lab Jorge L Chowdhury MD CHEMISTRY ORDERABLES Performing Organization Address City/[facility]/ZIP Co de Phone Number CERPINKY BUENROSTROENNIUM * (ABNORMAL) APTT (03/29/2012 7:38 AM EST) Partial Thromboplastin Time 109(H) 25 - 35 sec CERNER MILLENNIUM Comment: Recommended therapeutic PTT range for full dose unfractionated heparin is 80-114 seconds. Blood specimen (specimen) 03/29/2012 7:38 AM EST 03/29/2012 7:42 AM EST Narrative Resulting Agency Comment Spec In Lab Jorge L Chowdhury MD HEMATOLOGY ORDERABLE S Performing Organization Address [facility] de Phone Number CERPINKY HAIRSTONIUM * DIFFERENTIAL, AUTOMATED (03/29/2012 2:17 AM EST) Neutrophil % 45.2 34.0 - 71.0 % CERNER MILLENNIUM Neutrophil Absolute 2.59 1.50 - 6.30 x10(3)/mcL CERNER MILLENNIUM Lymph % 37.9 19.0 - 53.0 % CERNER MILLENNIUM Lymphocytes Abs 2.2 1.0 - 3.6 x10(3)/mcL CERNER MILLENNIUM Monocyte % 11.0 4.0 - 13.0 % CERNER MILLENNIUM Monocyte Abs 0.6 0.2 - 1.0 x10(3)/mcL CERNER MILLENNIUM Eos % 4.0 0.0 - 7.0 % CERNER MILLENNIUM Eosinophils Abs 0.2 0.0 - 0.5 x10(3)/mcL CERNER MILLENNIUM Basophil % 1.6 0.0 - 2.0 % CERNER MILLENNIUM Baso Absolute 0.1 0.0 - 0.2 x10(3)/mcL CERNER MILLENNIUM Immature Gran % 0.30 0.00 - 0.66 % CERNER MILLENNIUM Comment: Immature granulocytes(IG's)percentage and absolute count will include metamyelocytes, myelocytes, and promyelocytes. Blood smears from CBCs yielding IG's will be scanned manually for concordance. If this scan disagrees with the automated IG or if promyelocytes are noted, a manual differential will be performed. Immature Gran Absolute 0.02 0.00 - 0.05 x10(3)/mcL CERNER MILLENNIUM Blood specimen (specimen) 03/29/2012 2:17 AM EST 03/29/2012 2:48 AM EST Jorge L Chowdhury MD HEMATOLOGY ORDERABLE S Performing Organization Address [facility] Co de Phone Number [facility] * (ABNORMAL) CK (03/29/2012 2:17 AM EST) Pathologist [facility] Creatine Kinase 197(H) 0 - 160 unit/L [facility] MILLENNIUM Blood specimen (specimen) 03/29/2012 2:17 AM EST 03/29/2012 2:48 AM EST Narrative Resulting Agency Comment Spec In Lab Jorge L Chowdhury MD CHEMISTRY ORDERABLES Performing Organization Address [facility] Co pa Phone Number [facility] * Basic Metabolic Panel (non-fasting) (03/29/2012 2:17 AM EST) Pathologist [facility] Glucose 98 60 - 199 mg/dL [facility] Comment:Diabetes: >=200 mg/d L plus symptoms Blood Urea Nitrogen 18 8 - 18 mg/dL [facility] MILLENNIUM Creatinine 0.85 0.70 - 1.20 mg/dL [facility] MILLENNIUM Comment: Please note that the pediatric reference intervals supplied above were not validated at [facility]. Results from pediatric patients should be interpreted in conjunction to the patient's age, height and muscle mass. Sodium 140 135 - 145 mmol/L [facility] MILLENNIUM Potassium 4.1 3.5 - 5.0 mmol/L [facility] MILLENNIUM Comment: Please note: ??Patients with WBC >100,000 may have falsely elevated Potassium levels. ??For accurate Potassium quantification in these patients send serum separator tube (gold top) for subsequent determinations. ??Contact the Clinical Chemistry Laboratory if there are any questions. Chloride 106 98 - 107 mmol/L CERNER MILLENNIUM Carbon Dioxide 24 22 - 31 mmol/L CERNER MILLENNIUM Anion Gap 10 5 - 15 mmol/L CERNER MILLENNIUM Calcium 8.7 8.5 - 10.5 mg/dL CERNER MILLENNIUM Est Glomerular Filtration Rate >60 >=60 CERNER MILLENNIUM Comment: The National Kidney Disease Education Program (NKDEP) has recommended all laboratories report estimated GFR (eGFR) along with plasma creatinine measurements to assist you with recognition of early kidney disease. Caveats: ??Plasma creatinine should be at steady-state (unchanged within the past week). For patients multiply eGFR by 1.2. The MDRD equation was developed using patients between the ages of 18 and 70 years. ?? The MDRD equation has not been validated for patients < 18 years of age and should not be used to assess renal function in the pediatric population. ??The MDRD eGFR equation will also overestimate the true GFR of patients above the age of 70. ??This overestimation is variable but increases with age. At present, NKDEP does NOT recommend using the MDRD equation for drug dosing purposes and pharmacists should continue to use their current dosing methods. In addition, numerical eGFR values greater than 60 ml/min/1.73 square meters should be treated as > 60, and not an exact number due to greater inaccuracies at these higher values. Per NKDEP, they classify normal renal function as any GFR >60ml/min/1.73 square meters; chronic kidney disease when GFR <60, and renal failure when GFR <15. ??This calculation may not be valid for patients with atypical muscle mass (very lean or obese), acute renal failure, and in patients with diabetic kidney disease. References: http://nkdep.nih.gov/resources/NKDEP_Suggestn4Labs_0606_508.pdf http://www.kidney.org/professionals/kls/pdf/faq_gfr.pdf Saud K, Lilliam NA, Janett AK, Wing TS, Singh AD, Daniele VERNON. Relative performance of the MDRD and CKD-EPI equations for estimating glomerular filtration rate among patients with varied clinical presentations. Clin J Am Soc Nephrol;6:1963-72. Blood specimen (specimen) 03/29/2012 2:17 AM EST 03/29/2012 2:48 AM EST Narrative Resulting Agency Comment Spec In Lab Jorge L Chowdhury MD CHEMISTRY ORDERABLES CERNER MILLENNIUM * CBC (with Diff) (03/29/2012 2:17 AM EST) White Blood Cell 5.7 4.0 - 10.0 x10(3)/mcL CERNER MILLENNIUM Red Blood Cell 4.71 3.93 - 5.22 x10(6)/mcL CERNER MILLENNIUM Hemoglobin 14.4 11.2 - 15.7 gm/dL CERNER MILLENNIUM Hematocrit 43.4 34.0 - 45.0 % CERNER MILLENNIUM Mean Cell Volume 92.1 79.0 - 94.0 fL CERNER MILLENNIUM Mean Cell Hemoglobin 30.6 26.6 - 32.2 pg CERNER MILLENNIUM Mean Cell Hemoglobin Concentration 33.2 32.0 - 36.5 gm/dL CERNER MILLENNIUM Platelet 222 145 - 370 x10(3)/mcL CERNER MILLENNIUM RDW Standard Deviation 43.5 35.0 - 46.0 fL CERNER MILLENNIUM RDW coefficient of variation 13.0 10.9 - 14.4 % CERNER MILLENNIUM Mean Platelet Volume 10.0 9.0 - 12.0 fL CERNER MILLENNIUM Blood specimen (specimen) 03/29/2012 2:17 AM EST 03/29/2012 2:48 AM EST Narrative Resulting Agency Comment Spec In Lab Jorge L Chowdhury MD HEMATOLOGY ORDERABLE S CERPINKY HAIRSTONIUM * TSH (03/29/2012 2:17 AM EST) Thyroid Stimulating Hormone 2.05 0.27 - 4.20 mcIU/mL CERNER MILLENNIUM Blood specimen (specimen) 03/29/2012 2:17 AM EST 03/29/2012 2:48 AM EST Narrative Resulting Agency Comment Spec In Lab Jorge L Chowdhury MD CHEMISTRY ORDERABLES [facility] * Hemoglobin A1c (03/29/2012 2:17 AM EST) Hemoglobin A1c 5.2 4.3 - 6.1 % [facility] Estimated Average Glucose 103 mg/dL [facility] Comment: eAG equivalents for HbA1c percentages: HbA1c(%) ?eAG(mg/dL) 6.0 ?126 6.5 ?140 7.0 ?154 7.5 ?169 8.0 ?183 8.5 ?197 9.0 ?212 9.5 ?226 10.0 ? 240 Limitations: The eAG calculation has not been validated on women, individuals below 18 years old and above 70 years old, and individuals with hemoglobinopathies. Additional resources are available on the ADA website: ??http://professional.diabetes.org/glucosecalculator.aspx Reference: Luis MONSALVE, Sadie J, Imani R, et al. ??Translating the A1C assay into estimated average glucose values. ??Diabetes Care 2008:31(8):9079-9380. Blood specimen (specimen) 03/29/2012 2:17 AM EST 03/29/2012 2:48 AM EST Narrative Resulting Agency Comment Spec In Lab Jorge L Chowdhury MD CHEMISTRY ORDERABLES [facility] * (ABNORMAL) Lipid panel (fasting) (03/29/2012 2:17 AM EST) Cholesterol, Total 206(H) <=199 mg/dL [facility] Comment: Recommendations of the NCEP Adult Treatment Panel for the following risk cutoff thresholds for the [place] population: Desirable: <200 mg/dL Borderline High: 200-239 mg/dL High: > or = 240 mg/dL Triglyceride 66 <=149 mg/dL [facility] Comment: Reference Range: Normal triglycerides: ??<150 mg/dL Borderline high: ??150-199 mg/dL High: ??200-499 mg/dL Very high: ??>ob=473 mg/dL ISABEL 2001; 285(19):4368-8230 HDL Cholesterol 61 >=40 mg/dL [facility] Comment: Reference range: ??Low HDL: ?? < 40 mg/dL ??Normal: ?40-60 mg/dL ??Desirable: > 60 mg/dL ISABEL 2001; 285(19):2931-9634 LDL Cholesterol 132(H) <=99 mg/dL [facility] Comment: Reference range: ?? Optimal: ?<100 mg/dL ?? Near Optimal/Above Optimal: ?? 100-129 mg/dL ?? Borderline high: ?130-159 mg/dL ?? High: ? 160-189 mg/dL ?? Very high: ?>zj=047 mg/dL ISABEL 2001: 285(19):1584-0073 Cholesterol/HDL Ratio 3.4 ratio [facility] Comment: A Cholesterol to HDL ratio below 4:1 is desirable. ??Studies suggest that increased CAD risk occurs at ratios above 5 for females and above 6 for men. ? [place] Heart Association ??(http://www.americanheart.org) ? Josee Int Med, 1994; 121:641 ? AM J Med, 1998; 105(1A):48S Blood specimen (specimen) 03/29/2012 2:17 AM EST 03/29/2012 2:48 AM EST Narrative Resulting Agency Comment Spec In Lab Jorge L Chowdhury MD CHEMISTRY ORDERABLES RASHI LINARES * Cardiac Enzymes (03/29/2012 12:23 AM EST) Troponin-T Not Perf <=0.03 ng/mL [facility] Comment: Called by: JENNIFER, Read back by: Harley MILLS, Date/Time:03/29/12 01:17. 0.03 ng/mL: Represents the 99th percentile upper reference limit for normals. >0.03 ng/mL: Elevated cardiac troponin T level indicative of myocardial damage. Diagnosis of acute, evolving or recent [place] requires a typical rise and gradual fall of cTnT with at least ONE of the following: a) Ischemic symptoms b) Development of pathologic Q waves on the ECG c) ECG changes indicative of eschemia (S-T segment elevation/depression) d) Coronary artery intervention Serial bloods should be obtained for testing on admission, at 6 to 9 hrs and again at 12 to 24 hrs if earlier samples are negative and the clinical index of suspicion is high. Reference: [Myocardial infarction redefined a consensus document of the Joint Society of Cardiology/[place] [employer] Committee for the redefinition of myocardial infarction. Journal of the [place] [employer]iology 2000; 36: 959-969] Creatine Kinase Not Perf 0 - 160 unit/L [facility] Comment:Called by: JENNIFER, Read back by: Harley MILLS, Date/Time:03/29/12 01:17. Blood specimen (specimen) 03/29/2012 12:23 AM EST 03/29/2012 12:33 AM EST Narrative Resulting Agency Comment Spec In Lab Jorge L Chowdhury MD CHEMISTRY ORDERABLES RASHI LINARES * (ABNORMAL) APTT (03/29/2012 12:23 AM EST) Partial Thromboplastin Time 137(Criti leon) 25 - 35 sec RASHI LINARES Comment: Called by: derrell, Read back by: tiana sharma, Date/Time:03/29/12 01:05. Recommended therapeutic PTT range for full dose unfractionated heparin is 80-114 seconds. Blood specimen (specimen) 03/29/2012 12:23 AM EST 03/29/2012 12:33 AM EST Narrative Resulting Agency Comment Spec In Lab Jorge L Chowdhury MD HEMATOLOGY ORDERABLE S RASHI LINARES * CT THORAX & ABDOMINAL WITH CONTRAST (03/28/2012 7:28 PM EST) Anatomical Region Laterality Modality Computed Tomogra phy 03/28/2012 7:28 PM EST Narrative 03/29/2012 10:14 AM EST Examination CTA of Chest and Abdomen With ??without Contrast Clinical History 66yo female presenting with chest pain radiating to back, now with mainly back pain. r/o dissection Comparison No prior. Technique Contiguous axial images are obtained through the chest, abdomen, and pelvis before and after intravenous administration of 110 mL of Omnipaque 350. ?? Coronal, sagittal, and 3D re-formatted images are obtained. Findings There is a small calcified right lower lobe lung nodule. ??There is minimal bibasilar dependent atelectasis. ??The lungs appear otherwise clear. ??No pleural effusions are seen. Aorta appears normal in caliber and contour. ??The there is no evidence of dissection. There is no significant axillary, mediastinal, or hilar adenopathy. ??There is a 27 mm posterior right lobe of the thyroid isodense nodule. ??Ultrasound could be obtained for further characterization. The liver, spleen, adrenals and, pancreas, and kidneys appear new. ??The abdominal aorta is normal in caliber in and contour without evidence of dissection or aneurysm. ??No abdominal adenopathy or free fluid. The uterus is somewhat bulky likely due to fibroids. ??There is an incidental 12 mm left adnexal cyst. ??This could be further evaluated with ultrasound if there is clinical concern. ??There is no pelvic free fluid or adenopathy. Degenerative changes are present in the underlying bony structures without evidence of aggressive lesions. ??Incidental scoliosis of the lumbar spine convex to the right is identified. Impression ? 1. No evidence of aortic aneurysm or dissection. ? 2. Incidental 12 mm left adnexal cyst of doubtful clinical significance. ?? If there is concern, transvaginal pelvic ultrasound could be obtained. Procedure Note Elsy Dill MD - 03/29/2012 Examination CTA of Chest and Abdomen With without Contrast Clinical History 66yo female presenting with chest pain radiating to back, now with mainlyback pain. r/o dissection Comparison No prior. Technique Contiguous axial images are obtained through the chest, abdomen, andpelvis before and after intravenous administration of 110 mL of Omnipaque 350. Coronal, sagittal, and 3D re-formatted images are obtained. Findings There is a small calcified right lower lobe lung nodule. There is minimal bibasilar dependent atelectasis. The lungs appear otherwise clear. Nopleural effusions are seen. Aorta appears normal in caliber and contour. The there is no evidence of dissection. There is no significant axillary, mediastinal, or hilar adenopathy. Thereis a 27 mm posterior right lobe of the thyroid isodense nodule. Ultrasoundcould be obtained for further characterization. The liver, spleen, adrenals and, pancreas, and kidneys appear new. The abdominal aorta is normal in caliber in and contour without evidence of dissection or aneurysm. No abdominal adenopathy or free fluid. The uterus is somewhat bulky likely due to fibroids. There is anincidental 12 mm left adnexal cyst. This could be further evaluated with ultrasound ifthere is clinical concern. There is no pelvic free fluid or adenopathy. Degenerative changes are present in the underlying bony structures without evidence of aggressive lesions. Incidental scoliosis of the lumbar spine convex to the right is identified. Impression 1. No evidence of aortic aneurysm or dissection. 2. Incidental 12 mm left adnexal cyst of doubtful clinicalsignificance. If there is concern, transvaginal pelvic ultrasound could be obtained. Jorge L Chowdhury MD IMG CT ORDERABLES * DIFFERENTIAL, AUTOMATED (03/28/2012 6:18 PM EST) Pathologist [facility] Neutrophil % 50.3 34.0 - 71.0 % CERNER MILLENNIUM Neutrophil Absolute 3.05 1.50 - 6.30 x10(3)/mcL CERNER MILLENNIUM Lymph % 35.2 19.0 - 53.0 % CERNER MILLENNIUM Lymphocytes Abs 2.1 1.0 - 3.6 x10(3)/mcL CERNER MILLENNIUM Monocyte % 11.6 4.0 - 13.0 % CERNER MILLENNIUM Monocyte Abs 0.7 0.2 - 1.0 x10(3)/mcL CERNER MILLENNIUM Eos % 2.0 0.0 - 7.0 % CERNER MILLENNIUM Eosinophils Abs 0.1 0.0 - 0.5 x10(3)/mcL CERNER MILLENNIUM Basophil % 0.7 0.0 - 2.0 % CERNER MILLENNIUM Baso Absolute 0.0 0.0 - 0.2 x10(3)/mcL CERNER MILLENNIUM Immature Gran % 0.20 0.00 - 0.66 % CERNER MILLENNIUM Comment: Immature granulocytes(IG's)percentage and absolute count will include metamyelocytes, myelocytes, and promyelocytes. Blood smears from CBCs yielding IG's will be scanned manually for concordance. If this scan disagrees with the automated IG or if promyelocytes are noted, a manual differential will be performed. Immature Gran Absolute 0.01 0.00 - 0.05 x10(3)/mcL CERNER MILLENNIUM Blood specimen (specimen) 03/28/2012 6:18 PM EST 03/28/2012 6:24 PM EST Jorge L Chowdhury MD HEMATOLOGY ORDERABLE S [facility] * (ABNORMAL) Cardiac Enzymes (03/28/2012 6:18 PM EST) Pathologist [facility] Troponin-T 0.48(H) <=0.03 ng/mL CERNER MILLENNIUM Comment: 0.03 ng/mL: Represents the 99th percentile upper reference limit for normals. >0.03 ng/mL: Elevated cardiac troponin T level indicative of myocardial damage. Diagnosis of acute, evolving or recent [place] requires a typical rise and gradual fall of cTnT with at least ONE of the following: a) Ischemic symptoms b) Development of pathologic Q waves on the ECG c) ECG changes indicative of eschemia (S-T segment elevation/depression) d) Coronary artery intervention Serial bloods should be obtained for testing on admission, at 6 to 9 hrs and again at 12 to 24 hrs if earlier samples are negative and the clinical index of suspicion is high. Reference: [Myocardial infarction redefined a consensus document of the Joint Society of Cardiology/[place] [employer] Committee for the redefinition of myocardial infarction. Journal of the [place] [employer]iology 2000; 36: 959-969] Creatine Kinase 236(H) 0 - 160 unit/L RASHI [facility] Blood specimen (specimen) 03/28/2012 6:18 PM EST 03/28/2012 6:24 PM EST Narrative Resulting Agency Comment Spec In Lab Jorge L Chowdhury MD CHEMISTRY ORDERABLES Performing Organization Address [facility] de Phone Number RASHI [employer] * (ABNORMAL) APTT (03/28/2012 6:18 PM EST) Partial Thromboplastin Time 129(H) 25 - 35 sec RASHI [employer] Comment: Recommended therapeutic PTT range for full dose unfractionated heparin is 80-114 seconds. Blood specimen (specimen) 03/28/2012 6:18 PM EST 03/28/2012 6:24 PM EST Narrative Resulting Agency Comment Spec In Lab Jorge L Chowdhury MD HEMATOLOGY ORDERABLE S Performing Organization Address [facility] de Phone Number RASHI [employer] * Prothrombin Time (03/28/2012 6:18 PM EST) Prothrombin Time 14.6 11.9 - 14.7 sec RASHI [facility] Comment: [facility] Transfusion Committee Guidelines: INR less than 2.0, PTT less than OR equal to 43.5 seconds, or Fibrinogen greater than or equal to 100 mg/dl indicate adequate procoagulant activity for hemostasis in patients without underlying bleeding disorders. International Normalization Ratio 1.1 0.9 - 1.[address] [facility] Blood specimen (specimen) 03/28/2012 6:18 PM EST 03/28/2012 6:24 PM EST Narrative Resulting Agency Comment Spec In Lab Jorge L Chowdhury MD HEMATOLOGY ORDERABLE S Performing Organization Address [facility] Co de Phone Number [facility] * Phosphorus (03/28/2012 6:18 PM EST) Phosphorus 3.3 2.5 - 4.5 mg/dL [facility] Blood specimen (specimen) 03/28/2012 6:18 PM EST 03/28/2012 6:24 PM EST Narrative Resulting Agency Comment Spec In Lab Jorge L Chowdhury MD CHEMISTRY ORDERABLES Performing Organization Address [facility] de Phone Number [facility] * Magnesium (03/28/2012 6:18 PM EST) Magnesium 0.86 0.69 - 1.07 mmol/L [facility] Blood specimen (specimen) 03/28/2012 6:18 PM EST 03/28/2012 6:24 PM EST Narrative Resulting Agency Comment Spec In Lab Jorge L Chowdhury MD CHEMISTRY ORDERABLES Performing Organization Address [facility] de Phone Number [facility] * Calcium (03/28/2012 6:18 PM EST) Calcium 8.9 8.5 - 10.5 mg/dL [facility] Blood specimen (specimen) 03/28/2012 6:18 PM EST 03/28/2012 6:24 PM EST Narrative Resulting Agency Comment Spec In Lab Jorge L Chowdhury MD CHEMISTRY ORDERABLES Performing Organization Address [facility] Co de Phone Number [facility] * (ABNORMAL) Basic Metabolic Panel (non-fasting) (03/28/2012 6:18 PM EST) Glucose 101 60 - 199 mg/dL CERNER MILLENNIUM Comment:Diabetes: >=200 mg/d L plus symptoms Blood Urea Nitrogen 13 8 - 18 mg/dL CERNER MILLENNIUM Creatinine 0.69(L) 0.70 - 1.20 mg/dL CERNER MILLENNIUM Comment: Please note that the pediatric reference intervals supplied above were not validated at [facility]. Results from pediatric patients should be interpreted in conjunction to the patient's age, height and muscle mass. Sodium 143 135 - 145 mmol/L CERNER MILLENNIUM Potassium 3.6 3.5 - 5.0 mmol/L CERNER MILLENNIUM Comment: Please note: ??Patients with WBC >100,000 may have falsely elevated Potassium levels. ??For accurate Potassium quantification in these patients send serum separator tube (gold top) for subsequent determinations. ??Contact the Clinical Chemistry Laboratory if there are any questions. Chloride 107 98 - 107 mmol/L CERNER MILLENNIUM Carbon Dioxide 25 22 - 31 mmol/L CERNER MILLENNIUM Anion Gap 11 5 - 15 mmol/L CERNER MILLENNIUM Calcium 8.9 8.5 - 10.5 mg/dL CERNER MILLENNIUM Est Glomerular Filtration Rate >60 >=60 CERNER MILLENNIUM Comment: The National Kidney Disease Education Program (NKDEP) has recommended all laboratories report estimated GFR (eGFR) along with plasma creatinine measurements to assist you with recognition of early kidney disease. Caveats: ??Plasma creatinine should be at steady-state (unchanged within the past week). For patients multiply eGFR by 1.2. The MDRD equation was developed using patients between the ages of 18 and 70 years. ?? The MDRD equation has not been validated for patients < 18 years of age and should not be used to assess renal function in the pediatric population. ??The MDRD eGFR equation will also overestimate the true GFR of patients above the age of 70. ??This overestimation is variable but increases with age. At present, NKDEP does NOT recommend using the MDRD equation for drug dosing purposes and pharmacists should continue to use their current dosing methods. In addition, numerical eGFR values greater than 60 ml/min/1.73 square meters should be treated as > 60, and not an exact number due to greater inaccuracies at these higher values. Per NKDEP, they classify normal renal function as any GFR >60ml/min/1.73 square meters; chronic kidney disease when GFR <60, and renal failure when GFR <15. ??This calculation may not be valid for patients with atypical muscle mass (very lean or obese), acute renal failure, and in patients with diabetic kidney disease. References: http://nkdep.nih.gov/resources/NKDEP_Suggestn4Labs_0606_508.pdf http://www.kidney.org/professionals/kls/pdf/faq_gfr.pdf Saud K, Lilliam NA, Janett AK, Wing TS, Singh AD, Daniele VERNON. Relative performance of the MDRD and CKD-EPI equations for estimating glomerular filtration rate among patients with varied clinical presentations. Clin J Am Soc Nephrol;6:1963-72. Blood specimen (specimen) 03/28/2012 6:18 PM EST 03/28/2012 6:24 PM EST Narrative Resulting Agency Comment Spec In Lab Jorge L Chowdhury MD CHEMISTRY ORDERABLES CERNER MILLENNIUM * CBC (with Diff) (03/28/2012 6:18 PM EST) White Blood Cell 6.0 4.0 - 10.0 x10(3)/mcL CERNER MILLENNIUM Red Blood Cell 4.70 3.93 - 5.22 x10(6)/mcL CERNER MILLENNIUM Hemoglobin 14.5 11.2 - 15.7 gm/dL CERNER MILLENNIUM Hematocrit 42.6 34.0 - 45.0 % CERNER MILLENNIUM Mean Cell Volume 90.6 79.0 - 94.0 fL CERNER MILLENNIUM Mean Cell Hemoglobin 30.9 26.6 - 32.2 pg CERNER MILLENNIUM Mean Cell Hemoglobin Concentration 34.0 32.0 - 36.5 gm/dL CERNER MILLENNIUM Platelet 220 145 - 370 x10(3)/mcL CERNER MILLENNIUM RDW Standard Deviation 42.4 35.0 - 46.0 fL CERNER MILLENNIUM RDW coefficient of variation 12.9 10.9 - 14.4 % CERNER MILLENNIUM Mean Platelet Volume 9.5 9.0 - 12.0 fL CERNER MILLENNIUM Blood specimen (specimen) 03/28/2012 6:18 PM EST 03/28/2012 6:24 PM EST Narrative Resulting Agency Comment Spec In Lab Jorge L Chowdhury MD HEMATOLOGY ORDERABLE S RASHI LINARES * Echo Transthoracic (Complete) (03/28/2012 5:22 PM EST) EF 60 [facility] Anatomical Region Laterality Modality Other 03/29/2012 Narrative 03/29/2012 2:25 PM EST Procedure: ? Transthoracic Echocardiogram Patient: ? BECKMAN IOANA S ? (Age): 1945(66) Med Rec#: ?[id number] ? Sex: ?F ? Site Loc: ?[facility] ? Ht / Wt: ??160(cm)/75(kg) Pt. Loc: ? Adult Floor ?BSA: ?183 Study Date: ?03/28/2012 ? Pt. Type: Inpatient Tape: ? Referring: Jorge L Chowdhury ([id number]) Product Design Specialist: Fabiana Martinez FLORIN Diagnosis: ??Chest pain (786.50) CPT Code(s): ??Echo Full (38960), ??Spectral Doppler (89265), ??Color Doppler (94357), Indication(s): ??Chest Pain Rhythm: HR ?BP ?120/58 ?? SUMMARY: 1. The left ventricular chamber size is normal. ??Basal septal hypertrophy is observed. ??Ejection fraction is estimated to be 60%. There is mild hypokinesis of the [id number] lateral LV. ?? 2. Right ventricular chamber size, wall thickness, and systolic function are within normal limits. 3. There is no hemodynamically significant valve disease. 4. See remainder of report for additional findings. FINDINGS: Left Ventricle ?The left ventricular chamber size is normal. ?Basal septal hypertrophy is observed. ?There is normal global left ventricular systolic function. ??Ejection fraction is estimated to be 60%. ?There are left ventricular segmental wall motion abnormalities present, as shown in the diagram below. ?Left sided filling pressure could not be assessed by Doppler. ?The ??mid anterolateral, mid inferolateral and apical lateral wall segments are hypokinetic. Left Atrium ?The left atrium is normal in size. Right Ventricle ?Right ventricular chamber size, wall thickness, and systolic function are within normal limits. ?Pulmonary artery hypertension could not be assessed due to inadequate tricuspid regurgitation jet. Right Atrium ?The right atrium is normal in size. Aortic Valve ?The aortic valve is tricuspid. ?The aortic valve leaflets are mildly thickened. ?Systolic excursion of the aortic valve is normal. ?There is no evidence of aortic regurgitation. Mitral Valve ?The mitral valve leaflets are mildly thickened. ?Mitral valve leaflet mobility appears normal. ?There is trace mitral regurgitation present. Tricuspid Valve ?The tricuspid valve appears normal in structure and function. ?There is trace tricuspid regurgitation present. Pulmonic Valve ?The pulmonic valve appears normal in structure and function. ?There is mild (1+/4+) pulmonic regurgitation present. Pericardium ?The pericardium appears normal and there is no evidence of a pericardial effusion. ?A pericardial fat pad is visualized. Aorta ?The aorta appears normal. ?The aortic root is normal in size. ?The ascending aorta is normal in size. ?The aortic arch is normal in size. ?The aortic arch dimension is 2.6 cm. Pulmonary Artery ?The main pulmonary artery appears normal. Venous ?The inferior vena cava is poorly visualized. Misc ?There is no hemodynamically significant valve disease. ?See remainder of report for additional findings. ?Two-dimensional echo, spectral Doppler and color Doppler performed. Wall Motion: Segment Name ?Rest ? Base-Anteroseptal ?? Normal ? Base-Anterior ? Normal ? Base-Anterolateral ??Normal ? Base-Posterolateral Normal ? Base-Inferior ? Normal ? Base-Inferoseptal ?? Normal ? Mid-Anteroseptal ?Normal ? Mid-Anterior ?Normal ? Mid-Anterolateral ?? Hypokinetic ? Mid-Posterolateral ??Hypokinetic ? Mid-Inferior ?Normal ? Mid-Inferoseptal ?Normal ? Nancy-Septal ? Normal ? Nancy-Anterior ? Normal ? Nancy-Lateral ?Hypokinetic ? Nancy-Inferior ? Normal ? Nancy-Tip ?Normal ? Chambers ?Value ?Units (Range) ? IVSd MM ? 0.9 ?cm (0.3 to 1.1) ? LVIDd MM ?5.7 ?cm (3.7 to 5.6) ? PWd MM ?0.9 ?cm (0.6 to 1.1) ? LVIDs MM ?2.7 ?cm (2.3 to 3.9) ? LVFS MM ? 52 ? % (28 to 42) ? LV mass ? 197.5 ?gm ? LA area ? 20.2 ? cm2 (<21) ? RA area ? 11.5 ? cm2 (<18) ? Ao root ? 2.8 ?cm (2.1 to 3.6) ? Asc Ao ?2.6 ?cm (2 to 3.5) ? Pr Ao Arch ?2.6 ?cm (1 to 3.4) ? Mitral Valve ?Value ?Units (Range) ? E peak ?0.58 ? m/sec ? E/A ratio ? 0.7 ?ratio ? MVDT ?241 ?msec ? E1 ?0.05 ? m/sec ? E/E1 ?11.6 ? ratio ? Tricuspid/Pulmonic Valves ?Value ?Units (Range) ? TR peak mio ? 2.2 ?m/sec ? This report has been electronically signed by: Jorge L Chowdhury ? 03/29/2012 14:24:38 Images reviewed and interpretation verified [facility] Cardiac Ultrasound Laboratory Procedure Note Jorge L Chowdhury MD - 03/29/2012 Procedure: Transthoracic Echocardiogram Patient: LEE Puga (Age): 1945(66) Med Rec#: [id number] Sex: F Site Loc: [facility] Ht / Wt: 160(cm)/75(kg) Pt. Loc: Adult Floor BSA: 1.83 Study Date: 03/28/2012 Pt. Type: Inpatient Tape: Referring: Jorge L Chowdhury ([id number]) Product Design Specialist: Fabiana Martinez RDCS Diagnosis: Chest pain (786.50) CPT Code(s): Echo Full (10316), Spectral Doppler (17788), Color Doppler (12474), Indication(s): Chest Pain Rhythm: HR BP 120/58 SUMMARY: 1. The left ventricular chamber size is normal. Basal septal hypertrophy is observed. Ejection fraction is estimated to be 60%. There is mild hypokinesis of the [id number] lateral LV. 2. Right ventricular chamber size, wall thickness, and systolic function are within normal limits. 3. There is no hemodynamically significant valve disease. 4. See remainder of report for additional findings. FINDINGS: Left Ventricle The left ventricular chamber size is normal. Basal septal hypertrophy is observed. There is normal global left ventricular systolic function. Ejection fraction is estimated to be 60%. There are left ventricular segmental wall motion abnormalities present, as shown in the diagram below. Left sided filling pressure could not be assessed by Doppler. The mid anterolateral, mid inferolateral and apical lateral wall segments are hypokinetic. Left Atrium The left atrium is normal in size. Right Ventricle Right ventricular chamber size, wall thickness, and systolic function are within normal limits. Pulmonary artery hypertension could not be assessed due to inadequate tricuspid regurgitation jet. Right Atrium The right atrium is normal in size. Aortic Valve The aortic valve is tricuspid. The aortic valve leaflets are mildly thickened. Systolic excursion of the aortic valve is normal. There is no evidence of aortic regurgitation. Mitral Valve The mitral valve leaflets are mildly thickened. Mitral valve leaflet mobility appears normal. There is trace mitral regurgitation present. Tricuspid Valve The tricuspid valve appears normal in structure and function. There is trace tricuspid regurgitation present. Pulmonic Valve The pulmonic valve appears normal in structure and function. There is mild (1+/4+) pulmonic regurgitation present. Pericardium The pericardium appears normal and there is no evidence of a pericardial effusion. A pericardial fat pad is visualized. Aorta The aorta appears normal. The aortic root is normal in size. The ascending aorta is normal in size. The aortic arch is normal in size. The aortic arch dimension is 2.6 cm. Pulmonary Artery The main pulmonary artery appears normal. Venous The inferior vena cava is poorly visualized. Misc There is no hemodynamically significant valve disease. See remainder of report for additional findings. Two-dimensional echo, spectral Doppler and color Doppler performed. Wall Motion: Segment Name Rest Base-Anteroseptal Normal Base-Anterior Normal Base-Anterolateral Normal Base-Posterolateral Normal Base-Inferior Normal Base-Inferoseptal Normal Mid-Anteroseptal Normal Mid-Anterior Normal Mid-Anterolateral Hypokinetic Mid-Posterolateral Hypokinetic Mid-Inferior Normal Mid-Inferoseptal Normal Nancy-Septal Normal Nancy-Anterior Normal Nancy-Lateral Hypokinetic Nancy-Inferior Normal Nancy-Tip Normal Chambers Value Units (Range) IVSd MM 0.9 cm (0.3 to 1.1) LVIDd MM 5.7 cm (3.7 to 5.6) PWd MM 0.9 cm (0.6 to 1.1) LVIDs MM 2.7 cm (2.3 to 3.9) LVFS MM 52 % (28 to 42) LV mass 197.5 gm LA area 20.2 cm2 (<21) RA area 11.5 cm2 (<18) Ao root 2.8 cm (2.1 to 3.6) Asc Ao 2.6 cm (2 to 3.5) Pr Ao Arch 2.6 cm (1 to 3.4) Mitral Valve Value Units (Range) E peak 0.58 m/sec E/A ratio 0.7 ratio MVDT 241 msec E1 0.05 m/sec E/E1 11.6 ratio Tricuspid/Pulmonic Valves Value Units (Range) TR peak mio 2.2 m/sec This report has been electronically signed by: Jorge L Chowdhury 03/29/2012 14:24:38 Images reviewed and interpretation verified [facility] Cardiac Ultrasound Laboratory Jorge L Chowdhury MD ECHO ORDERABLES * EKG 12 Lead (03/28/2012 4:07 PM EST) Ventricular rate 53 BPM MUSE SYSTEM Atrial Rate 53 BPM MUSE SYSTEM P-R Interval 186 ms MUSE SYSTEM QRS Duration 84 ms MUSE SYSTEM Q-T Interval 482 ms MUSE SYSTEM QTC Calculated (Bezet) 452 ms MUSE SYSTEM Calculated P [place] 42 degrees MUSE SYSTEM Calculated R [place] 10 degrees MUSE SYSTEM Calculated T [place] 44 degrees MUSE SYSTEM INTERPRETATION Sinus bradycardia Nonspecific T wave abnormality Abnormal ECG When compared with ECG of 01-MAR-2006 09:13, No significant change was found Confirmed by MD CLEMENTE AARON (89) on 03/29/2012 5:09:21 PM MUSE SYSTEM 03/28/2012 4:07 PM EST 03/29/2012 5:09 PM EST Jorge L Chowdhury MD ECG ORDERABLES MUSE SYSTEM documented in this encounter Visit Diagnoses Not on filedocumented in this encounter Administered Medications Inactive Administered Medications - up to 3 most recent administrations Medication Order MAR Action Action Date Dose Rate Site fentaNYL 50mcg/mL injection ONCE PRN, Starting on Sat03/31/12 at 1132, Until Sat03/31/12 at 1200, Pain, Cath (Intra-Procedure), Routine Given 03/31/2012 11:32 AM EST 25 mcg iohexol (OMNIPAQUE) 350 mg iodine/mL injection ONCE PRN, Starting on Sat03/31/12 at 1157, Until Sat03/31/12 at 1200, Per Protocol, Cath (Intra-Procedure), Routine Given 03/31/2012 11:57 AM EST 83 mLs midazolam (VERSED) injection Intravenous, ONCE PRN, Starting on Sat03/31/12 at 1132, Until Sat03/31/12 at 1200, Sleep, Cath (Intra-Procedure), Routine Given 03/31/2012 11:32 AM EST 1 mg sodium chloride 0.9% infusion Intravenous, CONTINUOUS PRN, Starting on Sat03/31/12 at 1130, Until Sat03/31/12 at 1200, Cath (Intra-Procedure) New Bag 03/31/2012 11:30 AM EST 1 00 mL/hr documented in this encounter Active and Recently Administered Medications Times are shown in EST. Scheduled Medication Order 03/29/2012 03/30/2012 03/31/2012 aspirin EC tablet 81 mg (CANCELED) 81 mg, Oral, DAILY, First dose (after last modification) on Sat03/31/12 at 0900, Until Discontinued, Routine 0850 (Given - Provider: Tonya Anna RN) aspirin tablet 325 mg (CANCELED) 325 mg, Oral, DAILY, First dose on Sat03/28/12 at 1830, Until Discontinued, Routine 1537 (Given - Provider: Elise Inman RN - Comment: Rx not stocked) 0824 (Given - Provider: Tonya Anna RN) atorvastatin (LIPITOR) tablet 80 mg 80 mg, Oral, EVERY EVENING, First dose on Sat03/28/12 at 1830, Until Discontinued, Routine 1700 (Given - Provider: Elise Inman RN) 1723 (Given - Provider: Tonya Anna RN) clopidogrel (PLAVIX) tablet 75 mg (CANCELED) 75 mg, Oral, DAILY, First dose on 03/29/12 at 0900, Until Discontinued, Routine 0900 (Given - Provider: Elise Inman RN) 0824 (Given - Provider: Tonya Anna RN) 0851 (Given - Provider: Tonya Anna RN) diaZEPam (VALIUM) tablet 5 mg (COMPLETED) 5 mg, Oral, ONCE, 1 dose, On Sat03/31/12 at 1100, Routine 1044 (Given - Provider: Caitlin Parker) DILTiazem (DILACOR XR) XR capsule 300 mg (CANCELED) 300 mg, Oral, DAILY, First dose on 03/29/12 at 0900, Until Discontinued, Routine 0900 (Given - Provider: Elise Inman RN) diphenhydrAMINE (BENADRYL) capsule 25 mg (COMPLETED) 25 mg, Oral, ONCE, 1 dose, On Sat03/31/12 at 1100, Pre-medication prio to Cath., Routine 1044 (Given - Provider: Caitlin Parker) famotidine (PEPCID) tablet 20 mg (CANCELED) 20 mg, Oral, 2 TIMES DAILY, First dose on Sat03/28/12 at 2100, Until Discontinued, Routine 0900 (Given - Provider: Elise Inman RN)2100 (Given - Provider: Cherise Pa RN) 0825 (Given - Provider: Tonya Anna RN)2100 (Given - Provider: Virginia Dumont RN) 0851 (Given - Provider: Tonya Anna RN) levothyroxine (SYNTHROID) tablet 50 mcg (CANCELED) 50 mcg, Oral, EVERY MORNING, First dose on 03/29/12 at 0600, Until Discontinued, Routine 0600 (Given - Provider: Cherise Pa RN) 0619 (Given - Provider: Jordana Gray RN) 0540 (Given - Provider: Elaina Lopez RN) metoprolol (LOPRESSOR) tablet 12.5 mg () 12.5 mg, Oral, EVERY 6 HOURS SCHEDULED, 6 doses, First dose on Sat03/28/12 at 1815, Last dose on Sat03/29/12 at 1800, - Hold for SBP <90 and HR <55, call H.O, Routine 0000 (Not Given - Provider: Cherise Pa RN - Reason: Contraindicated)0600 (Not Given - Provider: Cherise Pa RN - Reason: Order parameters not met)1200 (Given - Provider: Elise Inman RN)1800 (Given - Provider: Elise Inman RN) metoprolol tartrate (LOPRESSOR) tablet 25 mg (CANCELED) 25 mg, Oral, EVERY 6 HOURS SCHEDULED, First dose (after last modification) on Sat03/30/12 at 1800, Until Discontinued, Hold for HR<60,SBP<90, Routine 1823 (Given - Provider: Tonya Anna RN - Comment: HR and BP within parameters) 0100 (Not Given - Provider: Elaina Lopez RN - Reason: Order parameters not met - Comment: HR in 50's)0540 (Not Given - Provider: Elaina Lopez RN - Reason: Order parameters not met - Comment: HR in 50's)1200 (Not Given - Provider: Tonya Anna RN - Reason: Order parameters not met - Comment: heart rate in 50's on telemetry) sodium chloride 0.9 % flush 5 mL (CANCELED) 5 mL, Intravenous, EVERY 12 HOURS, First dose on Sat03/28/12 at 1815, Until Discontinued 0615 (Given - Provider: Cherise Pa RN)1815 (Not Given - Provider: Elise Inman RN - Reason: See comment - Comment: infusing) 0615 (Given - Provider: Jordana Gray, JODY)1815 (Given - Provider: Tonya Anna RN) 0540 (Given - Provider: Elaina Lopez RN) Continuous Medication Order 03/29/2012 03/30/2012 03/31/2012 heparin 25,000 units in dextrose 5% 500 mL infusion (CANCELED) 350-7,000 Units/hr (rounded to 7-140 mL/hr), Intravenous, CONTINUOUS, Starting on Sat03/28/12 at 1815, Until Sat03/31/12 at 1117, Patient Weight 75-79 kg Initial dose - 950 units/hr = 19 mL/hr PTT less than 60 sec - increase by 300 units/hr = 6 mL/hr PTT 60-79 sec- increase by 150 units/hr = 3 mL/hr PTT 80-114 sec - no change PTT 115-129 sec - decrease by 100 units/hr = 2 mL/hr PTT 130-145 sec - stop infusion for 30 min then decrease by 150 units/hr = 3 mL/hr PTT greater than 145 sec - stop infusion for 60 min then decrease by 250 units/hr = 5 mL/hr PTT greater than 145 sec X 2 - call supervisor steffen house See Bolus dosing guidance for aPTT values less than 80 seconds under PRN medications , Routine 012 (Stopped - Provider: Cherise Pa RN)2025 (Rate/Dose Change - Provider: Cherise Pa RN) 010 (Rate/Dose Verify - Provider: Jordana Gray, JODY)0128 (New Bag - Provider: Jordana Gray, JODY)0147 (Rate/Dose Change - Provider: Jordana Gray RN)0800 (Rate/Dose Verify - Provider: Tonya Anna RN)1232 (Rate/Dose Verify - Provider: Tonya Anna RN - Comment: no change)1630 (Rate/Dose Verify - Provider: Tonya Anna RN - Comment: no change in dose, therapeutic level) 0100 (Rate/Dose Verify - Provider: Elaina Lopez RN)1022 (Rate/Dose Change - Provider: Tonya Anna RN)1112 (Stopped - Provider: Caitlin Parker) nitroGLYcerin 50 mg in dextrose 5% 250 mL infusion (CANCELED) 0-150 mcg/min (rounded to 0-45 mL/hr), Intravenous, CONTINUOUS, Starting on Sat03/28/12 at 1815, Until Sat03/31/12 at 1836, Please hold for SBP <90 and call H.O, Routine 0608 (Rate/Dose Change - Provider: Cherise Pa RN) 0102 (Rate/Dose Verify - Provider: Jordana Gray RN)0900 (Stopped - Provider: Tonya Anna RN - Comment: no active chest pain) sodium chloride 0.9% infusion () 125 mL/hr, Intravenous, CONTINUOUS, Starting on Sat03/31/12 at 1230, Until Sat03/31/12 at 1630 1215 (New Bag - Provider: Cherise Green RN) PRN Medication Order 03/29/2012 03/30/2012 03/31/2012 acetaminophen (TYLENOL) tablet 650 mg (CANCELED) 650 mg, Oral, EVERY 4 HOURS PRN, Starting on Sat03/28/12 at 1747, Until Sat03/31/12 at 1836, Pain, Headaches, Maximum dose of acetaminophen is 4000 mg from all sources in 24 hours., Routine 0040 (Given - Provider: Cherise Pa RN)0623 (Given - Provider: Cherise Pa RN) fentaNYL 50mcg/mL injection (CANCELED) ONCE PRN, Starting on Sat03/31/12 at 1132, Until Sat03/31/12 at 1200, Pain, Cath (Intra-Procedure), Routine 1132 (Given - Provider: Odin Baptiste RN) iohexol (OMNIPAQUE) 350 mg iodine/mL injection (CANCELED) ONCE PRN, Starting on Sat03/31/12 at 1157, Until Sat03/31/12 at 1200, Per Protocol, Cath (Intra-Procedure), Routine 1157 (Given - Provider: Obed Elliott MD) midazolam (VERSED) injection (CANCELED) Intravenous, ONCE PRN, Starting on Sat03/31/12 at 1132, Until Sat03/31/12 at 1200, Sleep, Cath (Intra-Procedure), Routine 1132 (Given - Provider: Odin Baptiste, JODY) nitroGLYcerin (NITROSTAT) SL tablet 0.4 mg 0.4 mg, Sublingual, EVERY 5 MIN PRN, Starting on Sat03/28/12 at 1747, Until Sat03/31/12 at 1836, Chest pain, May repeat every 5 minutes for a total of three doses. Notify provider if chest pain not relieved with nitroglycerin. Do not administer nitroglycerin if the patinet has received or taken phosphodiesterase (PDE-5) inhibitors such as sildenafil, tadalafil or vardenafil within the last 24 to 72 hours., Routine pneumococcal (PNEUMOVAX-23 (PPSV23)) vaccine inejction 0.5 mL (COMPLETED) 0.5 mL, Intramuscular, PRIOR TO DISCHARGE, 1 dose, Starting on Sat03/30/12 at 1626, Until Sat03/31/12 at 1635, Per Protocol, Hold for fever greater than 38.9C, Routine 1635 (Given - Provider: Tonya Anna RN) sodium chloride 0.9% infusion (CANCELED) Intravenous, CONTINUOUS PRN, Starting on Sat03/31/12 at 1130, Until Sat03/31/12 at 1200, Cath (Intra-Procedure) 1130 (New Bag - Provider: Odin Baptiste, JODY) documented in this encounter Care Teams Protection Analyst Relationship Specialty Start Date End Date Jennifer Gagnon MD [address] [place], [place] [address]Y [facility] [address] [place] [address] PCP - General 03/28/12 documented as of this encounter
--- OUTSIDE RECORDS SUMMARY | 2024-05-08 08:37 | XMS_ITS | Encounter Summary ---
Author Organization [facility] Address [facility] [place] [address] Care Team Providers Care [employer] Spanish Teacher Name Role Phone Jennifer Gagnon MD Primary Care Provider [phone] Encounter Details Date Type Department Care Team (Late st Contact Info) Description 04/02/2012 External Results XRay at [address] [place] [id number] Provider, Scanning Social History Tobacco Use Types Packs/Day Years [...] Procedure Name Priority Date/Time Associated Diagnosis Comments DIAGNOSTIC RADIOLOGY SCAN Routine 03/28/2012 documented in this encounter Results * Scan Doc: Diagnostic Radiology (03/28/2012) Anatomical Region Laterality Modality Other Scanning Provider MEDIA MGR SCAN EXT O RDR/RSLT documented in this encounter Visit Diagnoses Not on filedocumented in this encounter Care Teams [employer] Spanish Teacher Relationship Specialty Start Date End Date Jennifer Gagnon MD [address] [place] [address] PCP - General 03/28/12 documented as of this encounter
--- OUTSIDE RECORDS SUMMARY | 2024-05-08 08:37 | XMS_ITS | Encounter Summary ---
Author Organization [facility] [place] [address] Care Team Providers Care Land Survey Technician Name Role Phone Jennifer Gagnon MD Primary Care Provider [phone] Reason for Visit * Reason Comments Bilateral Foot Pain XR- bilat foot/ buni on pain/ discuss options 2nd opinion * Consultation (Routine) - Closed Specialty Diagnoses / Procedures Referred By Devante murillo Referred To Contact Orthopaedics Diagnoses bilat foot/ bunion pain/discuss options Self mail [facility] [address] [place] [address] Referral ID Status Reason Start Date Expiration Date V isits Requested Visits Authorized [id number] Closed Consult, Test & Treat 01/02/2019 01/02/2020 1 1 Encounter Details Date Type Department Care Team (Late st Contact Info) Description 02/10/2019 10:50 AM EDT Office [place] [address] Bunion, painful. bilateral. ; Valgus deformity of both great toes Social History Tobacco Use Types Packs/Day Years [...] Pulse 60 02/10/2019 10:37 AM EDT Temperature - - Respiratory Rate - - Oxygen Saturation - - Inhaled Oxygen Concentration - - Weight 76.3 kg (168 lb 4.8 oz) 02/10/2019 10:37 AM EDT measured Height 152.8 cm (5' 0.16) 02/10/2019 10:37 AM E DT measured Body Mass Index 32.7 02/10/2019 10:37 AM EDT documented in this encounter Progress Notes * Tia Jaimes, MANAGER RESOURCE - 02/10/2019 10:50 AM EDT PATIENT NAME: Ioana Beckman AGE: 73 y.o. MR#: [id number] DATE OF VISIT: 02/10/2019 DATE OF INJURY/ONSET: chronic STAFF: Dr. Okeefe CHIEF COMPLAINT: right greater than left hallux valgus with painful bunion deformity This 73 y.o. patient is seen in consultation at the request of Self. In order to facilitate the coordination of this patient's care, a copy of this note will be sent to Self. HISTORY OF PRESENT ILLNESS Ms. Beckman a 73 y.o. year old female non-diabetic, Non-smoker who comes into clinic today for above. She is here for a second opinion for above. She has been evaluated by Dr. Ayleen CHILEL in [facility] for above. She is bothered by pain mostly. She has tried shoe wear modification, relative rest and avoidance of painful activity. Pain is mostly 1st MTP and less so over the bunion and hammering of the 2nd toe. No hx of foot surgery, infection, dislocation or fracture. There is a hx of intertriginous fungus 1st and 2nd toe. Her DPM is planning on ordering something for this. She is quite active with walking and bowling and here to discuss surgical options further. PMH: AFIB (metoprolol Vertigo PSH: Tonsillectomy LEFT shoulder repair 2014 Cataract surgery bilateral SOCIAL HISTORY: Smoking: Non-smoker Occupation: Retired. farmworker field crop. ROS: Denies fever, chills, nausea, vomiting, vision change, shortness of breath, chest pain, visionchanges, headaches, bowel or bladder problem, ear, nose, sinus problem, neuro or psychiatric, or endocrine disorder not addressed above. There is no history of bleeding disorders. No DVT or PE history. No sleep apnea or CPAP use. There are no reported problems with anesthesia. Questionnaire Responses: myD-H Hip & Knee 02/04/2019 PROMIS-10 General Health Good PROMIS-10 Quality of Life Very Good PROMIS-10 Physical Health Good PROMIS-10 Mental Health Very Good PROMIS-10 Social Activity and Relationship Satisfaction Very Good PROMIS-10 Social Roles at Home and Work Very Good PROMIS-10 Everyday Physical Activities Completely PROMIS-10 Anxious or Depressed last 7 days Never PROMIS-10 Fatigue last 7 days None PROMIS-10 Pain last 7 days 0 -No Pain PROMIS PHYSICAL HEALTH SCORE (range 16-68) 57.7 PROMIS MENTAL HEALTH SCORE (range 21-68) 56 PHYSICAL EXAM: Vitals: 02/10/19 1037 BP: 112/80 BP Location ([facility]): Left arm Patient Position: Sitting BP Cuff Sizes: Adult (25-34 cm) Pulse: 60 Weight: 76.3 kg (168 lb 4.8 oz) Height: 152.8 cm (5' 0.16) Body mass index is 32.7 kg/m??. Ms. Beckman a 73 y.o. is alert and oriented. She appears in no acute discomfort and is resting comfortably in a chair in the exam room. Enters exam room with a non-antalgic gait. No assistive devices.Wearing orthopaedic shoes. Some difficulty with double toe raise unable to single toe raise. Inspection: Both 1st toe severe hallux valgus deformity with fungal appearing infection 1st and 2ndtoe intertriginous, 2nd toe hammering right no significant hammering left. Chronic dependent callous formation volar 1st MTP right Palpation: Pain at the 1st MTP . No significant pain over the bunion. ROM: Dorsiflexion: 10 degrees Plantarflexion: 30 degrees Inversion: Equal and symmetric to the bilateral side Eversion: Equal and symmetric to the bilateral side Strength: 5/5 in all planes of motion. EHL/FHL 5/5 Orthopaedic tests: Painless hindfoot motion. No instability noted Neurovascular: Foot is sensate and well perfused, DP and PT 2+ to palpation. Sensation intact to 1st webspace, medial and lateral sole and dorsum. RADIOLOGICAL STUDIES: Both foot x-rays reveals severe hallux valgus deformity with mild 1st MTP OA ASSESSMENT: 73 year old Female with right greater than left hallux valgus deformity with pain and mild stiffness over the 1st MTP. PLAN: Ms. Beckman and I discussed her radiologic findings and physical exam findings. Treatment options and risks/benefits discussed from least to most invasive. Patient understands options. . Given the patients findings on physical examination and radiologic studies it seems appropriate to schedule and refer the patient for the followin) At this time, She feels that she has failed non-op tx and would like to consider 1st MTP arthrodesis and 2nd toe hammer toe correction. 2) Dr Okeefe looked in on the patient and agrees with above. However, Ioana would like to consider her options further. We did offer her toe spacer's as an adjunct. 3) We also discussed the potential risks and benefits of bunion surgery (lapidus procedure) including potential reduction of pain and improved joint function. Also understood were potential risks of infection, deep venous thrombosis, pulmonary embolus, stroke, fracture, continued pain or stiffness,bleeding, nerve or blood vessel injury, implant failure that may require further surgical procedures and possible cardiopulmonary morbidity or . Alternatives to surgery were thoroughly discussed. Patient understood, and elected to proceed with the following procedure. F/u : We left things that Ioana can call PRN if she has any further questions or concerns about foot surgery. If she would like to proceed with surgery. We have given Ioana Okeefe's contact information and surgical schedulers phone #. The patient indicates understanding of these issues and agrees with the plan. * Cheng Okeefe MD - 02/10/2019 10:50 AM EDT I saw the patient in conjunction with Tiffani Jaimes and agree with her symptoms soon plan. Is a 73-year-old female with significant hallux valgus of her right foot and some hammering of her second toe. On my exam, she has no significant pain with mid range of motion of the first MTP joint and pain withpalpation over the medial eminence. Overall, these are moderately symptomatic problems for her, and she is having more difficulty finding shoes that fit, but wide toe box shoes are relatively successful at helping her with her discomfort. Given her deformity, and if her discomfort becomes debilitating, we discussed the possibility of a Lapidus style correction with second toe realignment likely to include PIP joint fusion and extensor tendon lengthening. We discussed this procedure, the recovery, and the risks, and she and her would like to consider their options. If she wishes to move forward with surgical planning I think this would be reasonable and we can initiate this over the phone. documented in this encounter Plan of Treatment Not on file documented as of this encounter Visit Diagnoses Diagnosis Bunion, painful. bilateral. Bunion Valgus deformity of both great toes documented in this encounter Care Teams Land Survey Technician Relationship Specialty Start Date End Date Jennifer Gagnon MD [address] [facility] [address] [place] [address] PCP - General 03/28/12 documented as of this encounter
--- OUTSIDE RECORDS SUMMARY | 2024-05-08 08:37 | XMS_ITS | Encounter Summary ---
Author Organization [facility] [place] [address] Care Team Providers Care Lab Animal Technologist Name Role Phone Jennifer Gagnon MD Primary Care Provider [phone] Encounter Details Date Type Department Care Team (Latest Contact Info) Description 03/28/2012 3:14 PM EST - 03/31/2012 4:35 PM EST Hospital Encounter Intermediate [place] [address] Jorge L Chowdhury MD [facility] [place] [address] NSTEMI (non-ST elevated myocardial infarction) Discharge Disposition: Home Social History Tobacco Use Types Packs/Day Years [...] appointments: During 8am-5pm Saturday through Saturday call [phone] to speak with a nurse in the cardiology clinic All other times call [phone] and ask to speak to the slip sheeter medical record consultant. Activity level: as tolerated Diet: low-cholesterol, low-fat Return to work: One week Driving: No driving for 48 hours after catheterization. Specific instructions related to your condition: Your prescriptions have been e-scripted to [facility] in [place], [place] Your Inpatient Doctor(s) at [facility]: Dr. Jorge L Chowdhury Anticoagulation follow-up: Dr. Gagnon's office, INR check on Saturday and Caitlin (RN for Dr. Gagnon) will call you tomorrow to go over the details Follow up Appointments: PCP - Dr. Gagnon, @ 3:45pm Principal Cloud Architect - Dr. Esvin Acevedo, [facility], SaturdayApr.25 @ 10:30am Home oxygen therapy: N/A Arrangements for VNA/home care: none * Attachments The following attachments cannot be sent through Care Everywhere. * PERCUTANEOUS CORONARY INTERVENTION: WHAT TO EXPECT AT HOME (MALTESE) documented in this encounter Medications at Time [...] with patientand who demonstrated understanding. * Tonya nAna RN - 03/31/2012 4:22 PM EST Reviewed discharge summary, medications & Lovenox teaching with patient and who demonstrated understanding. D/c'd patient from telemetry and IV's and gave take-home Lovenox package. Patient left for home with , ambulating independently to [facility]. * Reva Sotelo MD - 03/31/2012 1:59 [...] continue to monitor Reva Sotelo, PGY-1 Pager: [phone] * Jorge L Chowdhury MD - 03/31/2012 6:39 AM EST Inpatient Cardiology Progress Note ID: 66 y.o. female with CAD, pAfib, AAA, & stroke in 2005 who presented to OSH w/ chest and back pain, ruled in for NSTEMI, transferred to [facility], on heparin drip awaiting [...] non-focal Laboratory: Recent Labs Basename 03/31/12 0044 03/30/128 03/29/127 ??? WBC 5.6 6.3 5.7 ??? HGB 14.3 14.2 14.4 ??? PLATELET 193 196 222 Recent Labs Basename 03/31/12 0044 03/30/12 0118 03/29/12 0217 ??? NA 139 140 140 ??? K 4.1 4.0 4.1 ??? CL 106 106 106 ??? CO2 25 27 24 ??? BUN 21* 21* 18 ??? CREATININE 0.96 0.98 0.85 Recent Labs Basename 03/31/12 0044 03/30/12 0118 03/29/12 0217 03/28/121817 ??? CALCIUM 9.0 8.8 8.7 -- ??? MAGNESIUM -- -- -- 0.86 ??? PHOS -- -- -- 3.3 No results found for this basename: AST:3,ALT:3,ALKPHOS:3,BILITOT:3,BILIDIR:3 in the last 72 hours Recent Labs Basename 03/31/12 0044 03/30/12 1624 03/30/12 1134 03/28/121817 ??? PT -- -- -- 14.6 ??? INR -- -- -- 1.1 ??? PTT 113* 114* 114* -- Recent Labs Basename 03/29/12 0738 03/29/12 0217 03/29/12 0023 03/28/128 ??? CK 172* 197* Not Perf -- ??? TROPONINT 0.21* -- Not Perf 0.48* Imaging: - None new Diagnostics: EKG 03/29: sinus kenzie, still w/ non-specific ST-T changes in precordial leads Echo: TTE: 1. The left ventricular chamber size is normal. Basal septal hypertrophy is observed. Ejection fraction is estimated to be 60%. There is mild hypokinesis of the ikm-vq-rvdefy lateral LV. 2. Right ventricular chamber size, wall thickness, and systolic function are within normal limits. 3. There is no hemodynamically significant valve disease. ASSESSMENT/PLAN: Mrs. Beckman is a 66F w/ h/o CAD w/ unclear history of IL in 1977 at the age of 32, [...] with ASA/warfarin. Jorge L Chowdhury M.D. Staff Principal Cloud Architect pager [phone] * Jorge L Chowdhury MD - 03/30/2012 5:33 AM EST Inpatient Cardiology Progress Note ID: 66 y.o. female with CAD, pAfib, AAA, who presented to OSH w/ chest and back pain, ruled in for NSTEMI, transferred to [facility], on heparin drip awaiting [...] Alert, oriented, non-focal Laboratory: Recent Labs Basename 03/30/1211703/29/1221603/28/12 1818 ??? WBC 6.3 5.7 6.0 ??? HGB 14.2 14.4 14.5 ??? PLATELET 196 222 220 Recent Labs Basename 03/30/1211703/29/127 03/28/128 ??? NA 140 140 143 ??? K 4.0 4.1 3.6 ??? CL 106 106 107 ??? CO2 27 24 25 ??? BUN 21* 18 13 ??? CREATININE 0.98 0.85 0.69* Recent Labs Basename 03/30/12 0118 03/29/12 0217 03/28/128 ??? CALCIUM 8.8 8.7 8.9 8.9 ??? [...] 60%. There is mild hypokinesis of the sax-wh-amxvvd lateral LV. 2. Right ventricular chamber size, wall thickness, and systolic function are within normal limits. 3. There is no hemodynamically significant valve disease. ASSESSMENT/PLAN: Mrs. Beckman is a 66F w/ h/o CAD w/ unclear history of IL in 1977 at the age of 32, [...] cath tomorrow, 03/31 (will make NPO @ [facility]) - Consider addition of ACEi when BP [...] as above. Jorge L Chowdhury M.D. Staff Principal Cloud Architect pager [phone] * Jorge L Chowdhury MD - 03/29/2012 5:56 AM EST Inpatient Cardiology Progress Note ID: 66 y.o. female with CAD, pAfib, AAA, who presented to OSH w/ chest and back pain, ruled in, transferred to [facility], now ruled out for [...] 72 hours Recent Labs Basename 03/29/12 0738 03/29/122203/28/121817 ??? PT -- -- 14.6 ??? INR -- -- 1.1 ??? PTT 109* 137* 129* Recent Labs Basename 03/29/127 03/29/12 0023 03/28/121817 ??? CK 197* Not Perf [...] 60%. There is mild hypokinesis of the hzk-kn-szzayg lateral LV. 2. Right ventricular chamber size, wall thickness, and systolic function are within normal limits. 3. There is no hemodynamically significant valve disease. 4. See remainder of report for additional findings. Cardiac Catheterization: ASSESSMENT: 66 year old woman with CAD with unclear history of IL in 1977 at age 32, no history [...] anticoagulation for AF and other risk factors ([id number] = ~5). This should prompt consideration of a require a bare metal stent if PCI is performed. Jorge L Chowdhury M.D. Staff Principal Cloud Architect pager [phone] * Elise Inman RN - 03/28/2012 7:07 [...] woman with CAD with unclear history of IL in 1977 at age 32, no history of ICM by echo,paroxysmal afib most recently in sinus on dilt, hypothyroidism, who presented to an OSH today with chest pain awaking her from her sleep and transferred to [facility] after ruling in with troponin. Her history of CAD sounds somewhat unclear -- there was a record of IL 1977, at age 32, thought associatedwith control [...] minutes after pain started she arrived at [facility], where she received NTGx3 with no [...] on heparin drip. She was transferred to [facility] for further management. On [...] 2.2 Past Medical History: CAD - s/p IL 1977 at age 32, normal LVEF since [...] no edema Neuro: grossly intact Diagnostics: ECG: [facility] ECG pending LABS: [facility] labs pending ASSESSMENT: 66 year old woman with CAD with unclear history of IL in 1977 at age 32, no history [...] is performed. Jorge L Chowdhury M.D. Staff Principal Cloud Architect pager [phone] documented in this encounter Procedure Notes * Provider, Scanning - 04/01/2012 11:09 AM ESTAssociated Order(s): SCAN DOC: CARDIAC CATH * Provider, Scanning - 04/01/2012 11:09 AM ESTAssociated Order(s): SCAN DOC: SUBSTATION OPERATOR AUTOMATIC * Provider, Scanning - 03/31/2012 12:09 PM [...] on coronary angiography #2 Paroxysmal AF with [id number] score of 4 #3 History of posterior [...] woman with CAD with unclear history of IL in 1977 at age 32, no history of ICM by echo,paroxysmal afib most recently in sinus on dilt, hypothyroidism, who presented to an OSH today with chest pain awaking her from her sleep and transferred to [facility] after ruling in with troponin. Her history of CAD sounds somewhat unclear -- there was a record of IL 1977, at age 32, thought associatedwith control [...] minutes after pain started she arrived at [facility], where she received NTGx3 with no [...] on heparin drip. She was transferred to [facility] for further management. On [...] Mg 2.2 Hospital Course: On admission to [facility], the patient had no complaints of chest pain or shortness of breath. Telemetry was attached which showed normal sinus rhythm. Heparin drip was infusing. [facility] records/transfer records were reviewed. Baseline labs were checked and/or drawn. NSTEMI Given the patient's risk factors and positive biomarkers, it was decided to proceed with coronary angiography. The patient went to the cardiac tree tapping laborer for a diagnostic cath which showed [...] 60%. There is mild hypokinesis of the goc-ea-fqcpyh lateral LV. 2. Right ventricular chamber size, [...] appointments: During 8am-5pm Saturday through Saturday call [phone] to speak with a nurse in the cardiology clinic All other times call [phone] and ask to speak to the slip sheeter medical record consultant. Activity level: as tolerated Diet: low-cholesterol, low-fat Return to work: One week Driving: No driving for 48 hours after catheterization. Specific instructions related to your condition: [facility] in [place], [place] Your Inpatient Doctor(s) at [facility]: Dr. Jorge L Chowdhury Anticoagulation follow-up: Dr. Gagnon's office Follow up Appointments: PCP - Dr. Gagnon, @ 3:45pm Principal Cloud Architect - Dr. Esvin Acevedo, [facility], SaturdayApr.25 @ 10:30am Home oxygen therapy: N/A Arrangements for VNA/home care: none General Instructions None Provider Contact Information: Please call [facility] at [phone] and ask to speak with the circulation director on-call. Discharge References/Attachments: Discharge References/Attachments None Signed: [...] on ECG and elevated troponin. Transferred to [facility] for management of NSTEMI. [...] on ECG and elevated troponin. Transferred to [facility] for management of NSTEMI. [...] on ECG and elevated troponin. Transferred to [facility] for management of NSTEMI. [...] on ECG and elevated troponin. Transferred to [facility] for management of NSTEMI. [...] Procedure Name Priority Date/Time Associated Diagnosis Comments SUBSTATION OPERATOR AUTOMATIC SCAN 04/01/2012 11:09 AM EST CARDIAC CATH SCAN 04/01/2012 11: 09 AM EST CARDIAC CATHETERIZATION Routine 03/31/20 12 12:01 PM EST APTT STAT 03/31/2012 8:48 AM EST DIFFERENTIAL, AUTOMATED Routine 03/31/20 12:44 AM EST APTT STAT 03/31/2012 12:44 AM EST CBC (WITH DIFF) Routine 03/31/2012 12:44 AM EST BASIC METABOLIC PANEL Routine 03/31/2012 12:44 AM EST APTT STAT 03/30/2012 4:24 PM EST APTT STAT 03/30/2012 11:34 AM EST APTT STAT 03/30/2012 6:33 AM EST DIFFERENTIAL, AUTOMATED Routine 03/30/20 12 1:18 AM EST APTT STAT 03/30/2012 1:18 AM EST CBC (WITH DIFF) Routine 03/30/2012 1:18 AM EST BASIC METABOLIC PANEL Routine 03/30/2012 1:18 AM EST APTT STAT 03/29/2012 7:26 PM EST APTT STAT 03/29/2012 12:51 PM EST CARDIAC ENZYMES ([facility]) STAT 03/29/2012 7:38 AM EST APTT STAT 03/29/2012 7:38 AM EST DIFFERENTIAL, AUTOMATED Routine 03/29/20 12 2:17 AM EST CBC (WITH DIFF) Routine 03/29/2012 2:17 AM EST TSH Routine 03/29/2012 2:17 AM EST HEMOGLOBIN A1C Routine 03/29/2012 2:17 AM EST CK Routine 03/29/2012 2:17 AM EST LIPID PANEL (REFLEX DIRECT LDL) Routine 03/29/2012 2:17 AM EST BASIC METABOLIC PANEL Routine 03/29/2012 2:17 AM EST CARDIAC ENZYMES ([facility]) Routine 03/29/2012 12:23 AM EST APTT STAT 03/29/2012 12:[address] ANGIOGRAM OF CHEST AND ABDOMEN W CONTRAST Routine 03/28/2012 7:28 PM EST DIFFERENTIAL, AUTOMATED Routine 03/28/20 6:18 PM EST CARDIAC ENZYMES ([facility]) Routine 03/28/2012 6:18 PM EST APTT Routine [...] in this encounter Results * SCAN DOC: SUBSTATION OPERATOR AUTOMATIC (04/01/2012 11:09 AM EST) Anatomical Region Laterality [...] MILLENNIUM * (ABNORMAL) Basic Metabolic Panel (non-fasting) (03/31/2012 12:44 AM EST) Glucose 102 60 - 199 mg/dL CERNER MILLENNIUM Comment:Diabetes: >=200 mg/d L plus symptoms Blood Urea Nitrogen 21(H) 8 - 18 mg/dL CERNER MILLENNIUM Creatinine 0.96 0.70 - 1.20 mg/dL CERNER MILLENNIUM Comment: Please note that the pediatric reference intervals supplied above were not validated at [facility]. Results from pediatric patients [...] Cell 5.6 4.0 - 10.0 x10(3)/mcL RASHI LINARES Red Blood Cell 4.60 3.93 - 5.22 x10(6)/mcL CERNER MILLENNIUM Hemoglobin 14.3 11.2 - 15.7 gm/dL CERNER MILLENNIUM Hematocrit 42.0 34.0 - 45.0 % [...] MD HEMATOLOGY ORDERABLE S Performing Organization Address [facility] Co de Phone Number [facility] BUENROSTROENNIUM * (ABNORMAL) APTT (03/31/2012 12:44 AM EST) Partial Thromboplastin Time 113(H) 25 - 35 sec [facility] Comment: Recommended therapeutic PTT range for full dose unfractionated heparin is 80-114 seconds. Blood specimen (specimen) 03/31/2012 12:44 AM EST 03/31/2012 12:48 AM EST Narrative Resulting Agency Comment Spec In Lab Jorge L Chowdhury MD HEMATOLOGY ORDERABLE S Performing Organization Address City/[facility] Co de Phone Number RASHI BUENROSTROENNIUM * (ABNORMAL) APTT (03/30/2012 4:24 PM EST) Partial Thromboplastin Time 114(H) 25 - 35 sec [facility] MILLENNIUM Comment: Recommended therapeutic PTT range for full dose unfractionated heparin is 80-114 seconds. Blood specimen (specimen) 03/30/2012 4:24 PM EST 03/30/2012 4:41 PM EST Narrative Resulting Agency Comment Spec In Lab Jorge L Chowdhury MD HEMATOLOGY ORDERABLE S Performing Organization Address [facility]/ZIP Co de Phone Number CERPINKY BUENROSTROENNIUM * (ABNORMAL) APTT (03/30/2012 11:34 AM EST) Partial Thromboplastin Time 114(H) 25 - 35 sec CERNER MILLENNIUM Comment: Recommended therapeutic PTT range for full dose unfractionated heparin is 80-114 seconds. Blood specimen (specimen) 03/30/2012 11:34 AM EST 03/30/2012 11:40 AM EST Narrative Resulting Agency Comment Spec In Lab Jorge L Chowdhury MD HEMATOLOGY ORDERABLE S Performing Organization Address [facility] de Phone Number CERPINKY BUENROSTROENNIUM * (ABNORMAL) APTT (03/30/2012 6:33 AM EST) Partial Thromboplastin Time 112(H) 25 - 35 sec CERNER MILLENNIUM Comment: Recommended therapeutic PTT range for full dose unfractionated heparin is 80-114 seconds. Blood specimen (specimen) 03/30/2012 6:33 AM EST 03/30/2012 6:45 AM EST Narrative Resulting Agency Comment Spec In Lab Jorge L Chowdhury MD HEMATOLOGY ORDERABLE S Performing Organization Address [facility] de Phone Number CERPINKY BUENROSTROENNIUM * DIFFERENTIAL, [...] Jorge L Chowdhury MD HEMATOLOGY ORDERABLE S [facility] * (ABNORMAL) Basic Metabolic Panel (non-fasting) (03/30/2012 1:18 AM EST) [facility] Glucose 99 60 - 199 mg/dL CERNER MILLENNIUM Comment:Diabetes: >=200 mg/d L plus symptoms Blood Urea Nitrogen 21(H) 8 - 18 mg/dL CERNER MILLENNIUM Creatinine 0.98 0.70 - 1.20 mg/dL CERNER MILLENNIUM Comment: Please note that the pediatric reference intervals supplied above were not validated at [facility]. Results from pediatric patients [...] Chowdhury MD CHEMISTRY ORDERABLES Performing Organization Address [facility] Co de Phone Number RASHI LINARES * CBC (with Diff) (03/30/2012 1:18 AM [...] MD HEMATOLOGY ORDERABLE S Performing Organization Address [facility] Co de Phone Number RASHI LINARES * (ABNORMAL) APTT (03/30/2012 1:18 AM EST) Partial Thromboplastin Time 73(H) 25 - 35 sec CERNER MILLENNIUM Comment: Recommended therapeutic PTT range for full dose unfractionated heparin is 80-114 seconds. Blood specimen (specimen) 03/30/2012 1:18 AM EST 03/30/2012 1:27 AM EST Narrative Resulting Agency Comment Spec In Lab Jorge L Chowdhury MD HEMATOLOGY ORDERABLE S Performing Organization Address [facility] Co de Phone Number RASHI BUENROSTROTalkApolisHEAVENLY * (ABNORMAL) APTT (03/29/2012 7:26 PM EST) Partial Thromboplastin Time 85(H) 25 - 35 sec [facility] [employer] Comment: Recommended therapeutic PTT range for full dose unfractionated heparin is 80-114 seconds. Blood specimen (specimen) 03/29/2012 7:26 PM EST 03/29/2012 7:34 PM EST Narrative Resulting Agency Comment Spec In Lab Joreg L Chowdhury MD HEMATOLOGY ORDERABLE S Performing Organization Address [facility] de Phone Number RASHI BUENROSTROTalkApolisHEAVENLY * (ABNORMAL) APTT (03/29/2012 12:51 PM EST) Partial Thromboplastin Time 89(H) 25 - 35 sec [facility] [employer] Comment: Recommended therapeutic PTT range for full dose unfractionated heparin is 80-114 seconds. Blood specimen (specimen) 03/29/2012 12:51 PM EST 03/29/2012 12:57 PM EST Narrative Resulting Agency Comment Spec In Lab Jorge L Chowdhury MD HEMATOLOGY ORDERABLE S Performing Organization Address [facility] de Phone Number RASHI BUENROSTROTalkApolisHEAVENLY * (ABNORMAL) Cardiac Enzymes (03/29/2012 7:38 AM EST) Troponin-T 0.21(H) <=0.03 ng/mL [facility] [employer] Comment: 0.03 ng/mL: Represents the 99th percentile upper reference limit for normals. >0.03 ng/mL: Elevated cardiac troponin T level indicative of myocardial damage. Diagnosis of acute, evolving or recent IL requires a typical rise and gradual fall [...] consensus document of the Joint Society of Cardiology/[place] College of Cardiology Committee for the redefinition of myocardial infarction. Journal of the [place] College of Cardiology 2000; 36: 959-969] Creatine Kinase 172(H) 0 - 160 unit/L CERNER MILLENNIUM Blood specimen (specimen) 03/29/2012 7:38 AM EST 03/29/2012 7:42 AM EST Narrative Resulting Agency Comment Spec In Lab Jorge L Chowdhury MD CHEMISTRY ORDERABLES Performing Organization Address City/[facility]/ZIP Co de Phone Number CERPINKY BUENROSTROENNIUM * [...] MD HEMATOLOGY ORDERABLE S Performing Organization Address City/[facility]/ZIP Co de Phone Number RASHI HAIRSTONIUM * DIFFERENTIAL, AUTOMATED (03/29/2012 2:17 AM [...] Immature Gran Absolute 0.02 0.00 - 0.05 x10(3)/[facility] CERNER MILLENNIUM Blood specimen (specimen) 03/29/2012 2:17 AM EST 03/29/2012 2:48 AM EST Jorge L Chowdhury MD HEMATOLOGY ORDERABLE S [facility] * (ABNORMAL) CK (03/29/2012 2:17 AM EST) Pathologist [facility] Creatine Kinase 197(H) 0 - 160 unit/L CERNER MILLENNIUM Blood specimen (specimen) 03/29/2012 2:17 AM EST 03/29/2012 2:48 AM EST Narrative Resulting Agency Comment Spec In Lab Jorge L Chowdhury MD CHEMISTRY ORDERABLES [facility] * Basic Metabolic Panel (non-fasting) (03/29/2012 2:17 AM EST) Pathologist [facility] Glucose 98 60 - 199 mg/dL [facility] MILLENNIUM Comment:Diabetes: >=200 mg/d L plus symptoms Blood Urea Nitrogen 18 8 - 18 mg/dL CERNER MILLENNIUM Creatinine 0.85 0.70 - 1.20 mg/dL CERNER MILLENNIUM Comment: Please note that the pediatric reference intervals supplied above were not validated at [facility]. Results from pediatric patients should be interpreted in conjunction to the patient's age, height and muscle mass. Sodium 140 135 - 145 mmol/L [facility] MILLENNIUM Potassium 4.1 3.5 - 5.0 mmol/L [...] diabetic kidney disease. References: http://nkdep.nih.gov/resources/NKDEP_Suggestn4Labs_0606_508.pdf http://www.kidney.org/professionals/kls/pdf/faq_gfr.pdf Saud Topete, Lilliam NA, Janett AK, Wing TS, Singh AD, Daniele VERNON. Relative performance of the MDRD and CKD-EPI equations for estimating glomerular filtration rate among patients with varied clinical presentations. Clin J Am Soc Nephrol;6:1963-72. Blood specimen (specimen) 03/29/2012 2:17 AM EST 03/29/2012 2:48 AM EST Narrative Resulting Agency Comment Spec In Lab Jorge L Chowdhury MD CHEMISTRY ORDERABLES Performing Organization Address [facility] Co de Phone Number CERPINKY HAIRSTONIUM * CBC (with Diff) (03/29/2012 2:17 AM [...] MD HEMATOLOGY ORDERABLE S Performing Organization Address [facility] Co de Phone Number RASHI LINARES * TSH (03/29/2012 2:17 AM EST) Thyroid Stimulating Hormone 2.05 0.27 - 4.20 mcIU/mL [facility] Blood specimen (specimen) 03/29/2012 2:17 AM EST 03/29/2012 2:48 AM EST Narrative Resulting Agency Comment Spec In Lab Jorge L Chowdhury MD CHEMISTRY ORDERABLES [facility] * Hemoglobin A1c (03/29/2012 2:17 AM EST) Hemoglobin A1c 5.2 4.3 - 6.1 % [facility] Estimated Average Glucose 103 mg/dL [facility] Comment: eAG equivalents for HbA1c percentages: HbA1c(%) [...] into estimated average glucose values. ??Diabetes Care 2008:31(8):8457-2374. Blood specimen (specimen) 03/29/2012 2:17 AM EST 03/29/2012 2:48 AM EST Narrative Resulting Agency Comment Spec In Lab Jroge L Chowdhury MD CHEMISTRY ORDERABLES RASHI LINARES * (ABNORMAL) Lipid panel (fasting) (03/29/2012 2:17 AM EST) Cholesterol, Total 206(H) <=199 mg/dL CERNER MILLENNIUM Comment: Recommendations of the NCEP Adult Treatment Panel for the following risk cutoff thresholds for the [place] population: Desirable: <200 mg/dL Borderline High: 200-239 mg/dL High: > or = 240 mg/dL Triglyceride 66 <=149 mg/dL CERNER MILLENNIUM Comment: Reference Range: Normal triglycerides: ??<150 mg/dL Borderline high: ??150-199 mg/dL High: ??200-499 mg/dL Very high: ??>vl=673 mg/dL ISABEL 2001; 285(19):7398-7674 HDL Cholesterol 61 >=40 mg/dL C[facility] NER MILLENNIUM Comment: Reference range: ??Low HDL: ?? < 40 mg/dL ??Normal: ?40-60 mg/dL ??Desirable: > 60 mg/dL ISABEL 2001; 285(19):8290-2503 LDL Cholesterol 132(H) <=99 mg/dL CER NER MILLENNIUM Comment: Reference range: ?? Optimal: ?<100 mg/dL ?? Near Optimal/Above Optimal: ?? 100-129 mg/dL ?? Borderline high: ?130-159 mg/dL ?? High: ? 160-189 mg/dL ?? Very high: ?>sw=692 mg/dL ISABEL 2001: 285(19):2122-8206 Cholesterol/HDL Ratio 3.4 ratio CERNER MILLENNIUM Comment: A Cholesterol to HDL ratio below 4:1 is desirable. ??Studies suggest that increased CAD risk occurs at ratios above 5 for females and above 6 for men. ? [place] [employer] ??(http://www.americanheart.org) ? Josee Int Med, 1994; 121:641 ? AM J Med, 1998; 105(1A):48S Blood specimen (specimen) 03/29/2012 2:17 AM EST 03/29/2012 2:48 AM EST Narrative Resulting Agency Comment Spec In Lab Jorge L Chowdhury MD CHEMISTRY ORDERABLES Performing Organization Address City/[facility]/ZIP Co de Phone Number [facility] * Cardiac Enzymes (03/29/2012 12:23 AM EST) Troponin-T Not Perf <=0.03 ng/mL [facility] Comment: Called by: JENNIFER, Read back by: Harley MILLS, Date/Time:03/29/12 01:17. 0.03 ng/mL: Represents the 99th percentile upper reference limit for normals. >0.03 ng/mL: Elevated cardiac troponin T level indicative of myocardial damage. Diagnosis of acute, evolving or recent IL requires a typical rise and gradual fall [...] consensus document of the Joint Society of Cardiology/[place] College of Cardiology Committee for the redefinition of myocardial infarction. Journal of the [place] College of Cardiology 2000; 36: 959-969] Creatine Kinase Not Perf 0 - 160 unit/L [facility] Comment:Called by: JENNIFER, Read back by: Harley MILLS, Date/Time:03/29/12 01:17. Blood specimen (specimen) 03/29/2012 12:23 AM EST 03/29/2012 12:33 AM EST Narrative Resulting Agency Comment Spec In Lab Jorge L Chowdhury MD CHEMISTRY ORDERABLES [facility] * (ABNORMAL) APTT (03/29/2012 12:23 AM EST) Partial Thromboplastin Time 137(Criti leon) 25 - 35 sec RASHI LINARES Comment: Called by: afp, Read back by: tiana sharma, Date/Time:03/29/12 01:05. Recommended therapeutic PTT range for full dose unfractionated heparin is 80-114 seconds. Blood specimen (specimen) 03/29/2012 12:23 AM EST 03/29/2012 12:33 AM EST Narrative Resulting Agency Comment Spec In Lab Jorge L Chowdhury MD HEMATOLOGY ORDERABLE S Performing Organization Address [facility] Co de Phone Number RASHI LINARES * CT THORAX & ABDOMINAL [...] * DIFFERENTIAL, AUTOMATED (03/28/2012 6:18 PM EST) Neutrophil % 50.3 34.0 - 71.0 % [...] HEMATOLOGY ORDERABLE S CERNER CHITRAENNIUM * (ABNORMAL) Cardiac Enzymes (03/28/2012 6:18 PM EST) Troponin-T 0.48(H) <=0.03 ng/mL CERNER MILLENNIUM Comment: 0.03 ng/mL: Represents the 99th percentile upper reference limit for normals. >0.03 ng/mL: Elevated cardiac troponin T level indicative of myocardial damage. Diagnosis of acute, evolving or recent IL requires a typical rise and gradual fall [...] consensus document of the Joint Society of Cardiology/[place] College of Cardiology Committee for the redefinition of myocardial infarction. Journal of the [place] College of Cardiology 2000; 36: 959-969] Creatine Kinase 236(H) 0 - 160 unit/L [facility] Blood specimen (specimen) 03/28/2012 6:18 PM EST 03/28/2012 6:24 PM EST Narrative Resulting Agency Comment Spec In Lab Jorge L Chowdhury MD CHEMISTRY ORDERABLES Performing Organization Address [facility] Co de Phone Number [facility] * (ABNORMAL) APTT (03/28/2012 6:18 PM EST) Partial Thromboplastin Time 129(H) 25 - 35 sec [facility] Comment: Recommended therapeutic PTT range for full dose unfractionated heparin is 80-114 seconds. Blood specimen (specimen) 03/28/2012 6:18 PM EST 03/28/2012 6:24 PM EST Narrative Resulting Agency Comment Spec In Lab Jorge L Chowdhury MD HEMATOLOGY ORDERABLE S Performing Organization Address [facility] Co de Phone Number [facility] * Prothrombin Time (03/28/2012 6:18 PM EST) Prothrombin Time 14.6 11.9 - 14.7 sec [facility] [employer] Comment: [facility] Transfusion Committee Guidelines: INR less than 2.0, PTT less than OR equal to 43.5 seconds, or Fibrinogen greater than or equal to 100 mg/dl indicate adequate procoagulant activity for hemostasis in patients without underlying bleeding disorders. International Normalization Ratio 1.1 0.9 - 1.1 CERNER MILLENNIUM Blood specimen (specimen) 03/28/2012 6:18 PM EST 03/28/2012 6:24 PM EST Narrative Resulting Agency Comment Spec In Lab Jorge L Chowdhury MD HEMATOLOGY ORDERABLE S Performing Organization Address [facility] de Phone Number RASHI BUENROSTROENNIUM * Phosphorus (03/28/2012 6:18 PM EST) Phosphorus 3.3 2.5 - 4.5 mg/dL CERNER MILLENNIUM Blood specimen (specimen) 03/28/2012 6:18 PM EST 03/28/2012 6:24 PM EST Narrative Resulting Agency Comment Spec In Lab Jorge L Chowdhury MD CHEMISTRY ORDERABLES Performing Organization Address [facility] de Phone Number RASHI BUENROSTROENNIUM * Magnesium (03/28/2012 6:18 PM EST) Magnesium 0.86 0.69 - 1.07 mmol/L CERNER MILLENNIUM Blood specimen (specimen) 03/28/2012 6:18 PM EST 03/28/2012 6:24 PM EST Narrative Resulting Agency Comment Spec In Lab Jorge L Chowdhury MD CHEMISTRY ORDERABLES Performing Organization Address [facility] de Phone Number RASHI BUENROSTROENNIUM * Calcium (03/28/2012 6:18 PM EST) Calcium 8.9 8.5 - 10.5 mg/dL CERNER MILLENNIUM Blood specimen (specimen) 03/28/2012 6:18 PM EST 03/28/2012 6:24 PM EST Narrative Resulting Agency Comment Spec In Lab Jorge L Chowdhury MD CHEMISTRY ORDERABLES Performing Organization Address [facility] Co de Phone Number RASHI HAIRSTONIUM * (ABNORMAL) Basic Metabolic Panel (non-fasting) (03/28/2012 6:18 PM EST) [facility] Glucose 101 60 - 199 mg/dL CERNER MILLENNIUM Comment:Diabetes: >=200 mg/d L plus symptoms Blood Urea Nitrogen 13 8 - 18 mg/dL CERNER MILLENNIUM Creatinine 0.69(L) 0.70 - 1.20 mg/dL CERNER MILLENNIUM Comment: Please note that the pediatric reference intervals supplied above were not validated at [facility]. Results from pediatric patients [...] Lab Jorge L Chowdhury MD CHEMISTRY ORDERABLES [facility] CHITRAEN[facility] * CBC (with Diff) (03/28/2012 6:18 PM [...] Platelet Volume 9.5 9.0 - 12.0 fL RASHI LINARES Blood specimen (specimen) 03/28/2012 6:18 PM EST 03/28/2012 6:24 PM EST Narrative Resulting Agency Comment Spec In Lab Jorge L Chowdhury MD HEMATOLOGY ORDERABLE S RASHI LINARES * Echo Transthoracic (Complete) (03/28/2012 5:22 PM EST) EF 60 HEARTLAB SYSTEM Anatomical Region Laterality Modality Other 03/29/2012 Narrative 03/29/2012 2:25 PM EST Procedure: ? Transthoracic Echocardiogram Patient: ? LEE Puga ? (Age): 1945(66) Med Rec#: ?[id number] ? Sex: ?F ? Site Loc: ?[facility] ? Ht / Wt: ??160(cm)/75(kg) Pt. Loc: ? Adult Floor ?BSA: ?1.83 Study Date: ?03/28/2012 ? Pt. Type: Inpatient Tape: ? Referring: Jorge L Chowdhury ([id number]) Test Engine Mechanic: Fabiana Martinez FLORIN Diagnosis: ??Chest pain (786.50) CPT Code(s): ??Echo Full (20474), ??Spectral Doppler (49909), ??Color Doppler (40019), Indication(s): ??Chest Pain Rhythm: HR ?BP ?120/58 ?? SUMMARY: 1. The left ventricular chamber size is normal. ??Basal septal hypertrophy is observed. ??Ejection fraction is estimated to be 60%. There is mild hypokinesis of the gec-dg-qjtffe lateral LV. ?? 2. Right ventricular chamber [...] ? Mid-Inferior ?Normal ? Mid-Inferoseptal ?Normal ? [place]-Septal ? Normal ? [place]-Anterior ? Normal ? [place]-Lateral ?Hypokinetic ? [place]-Inferior ? Normal ? [place]-Tip ?Normal ? Chambers ?Value ?Units (Range) ? [...] 03/29/2012 14:24:38 Images reviewed and interpretation verified [facility] Cardiac Ultrasound Laboratory Procedure Note Jorge L Chowdhury MD - 03/29/2012 Procedure: Transthoracic Echocardiogram Patient: LEE Puga (Age): 1945(66) Med Rec#: [id number] Sex: F Site Loc: [facility] Ht / Wt: 160(cm)/75(kg) Pt. Loc: Adult Floor BSA: 1.83 Study Date: 03/28/2012 Pt. Type: Inpatient Tape: Referring: Jorge L Chowdhury ([id number]) Test Engine Mechanic: Fabiana Martinez RDCS Diagnosis: Chest pain (786.50) CPT Code(s): Echo Full (82282), Spectral Doppler (83169), Color Doppler (82915), Indication(s): Chest Pain Rhythm: HR BP 120/58 SUMMARY: 1. The left ventricular chamber size is normal. Basal septal hypertrophy is observed. Ejection fraction is estimated to be 60%. There is mild hypokinesis of the fsh-ze-mkersd lateral LV. 2. Right ventricular chamber size, [...] Hypokinetic Mid-Posterolateral Hypokinetic Mid-Inferior Normal Mid-Inferoseptal Normal [place]-Septal Normal [place]-Anterior Normal [place]-Lateral Hypokinetic [place]-Inferior Normal [place]-Tip Normal Chambers Value Units (Range) IVSd MM [...] 03/29/2012 14:24:38 Images reviewed and interpretation verified [facility] Cardiac Ultrasound Laboratory Jorge L Chowdhury MD ECHO ORDERABLES * EKG 12 Lead (03/28/2012 4:07 PM EST) Ventricular rate 53 BPM MUSE SYSTEM Atrial Rate 53 BPM MUSE SYSTEM P-R Interval 186 ms MUSE SYSTEM QRS Duration 84 ms MUSE SYSTEM Q-T Interval 482 ms MUSE SYSTEM QTC Calculated (Bezet) 452 ms MUSE SYSTEM Calculated P [place] 42 degrees MUSE SYSTEM Calculated R [place] 10 degrees MUSE SYSTEM Calculated T [place] 44 degrees MUSE SYSTEM INTERPRETATION Sinus bradycardia Nonspecific T wave abnormality Abnormal ECG When compared with ECG of 01-MAR-2006 09:13, No significant change was found Confirmed by MD BRYN, CHRISTIAN ([id number]) on 03/29/2012 5:09:21 PM MUSE SYSTEM 03/28/2012 4:07 PM EST 03/29/2012 5:09 PM EST Jorge L Chowdhury MD ECG ORDERABLES MUSE SYSTEM documented in this encounter Visit Diagnoses Diagnosis CAD (coronary artery disease)- Primary Coronary atherosclerosis of unspecified type of vessel, cheesh-na or graft NSTEMI (non-ST elevated myocardial infarction) Acute myocardial infarction, subendocardial infarction, episode of care unspecified documented in this encounter Administered Medications Inactive Administered Medications - up to 3 most recent administrations Medication Order MAR Action Action Date Dose Rate Site acetaminophen (TYLENOL) tablet 650 mg 650 mg, Oral, EVERY 4 HOURS PRN, Starting on Sat03/28/12 at 1747, Until 03/31/12 at 1836, Pain, Headaches, Maximum dose of acetaminophen is 4000 mg from all sources in 24 hours., Routine Given 03/29/2012 6:23 AM EST 650 mg Given 03/29/2012 12:40 AM EST 650 mg aspirin EC tablet 81 mg 81 mg, Oral, DAILY, First dose (after last modification) on Sat03/31/12 at 0900, Until Discontinued, Routine Given 03/31/2012 8:50 AM EST 81 mg aspirin tablet 325 mg 325 mg, Oral, DAILY, First dose on Sat03/28/12 at 1830, Until Discontinued, Routine Given 03/30/2012 8:24 AM EST 325 mg Given 03/29/2012 3:37 PM EST 325 mg Given 03/28/2012 8:59 PM EST 325 mg atorvastatin (LIPITOR) tablet 80 mg 80 mg, Oral, EVERY EVENING, First dose on Sat03/28/12 at 1830, Until Discontinued, Routine Given 03/30/2012 5:23 PM EST 80 mg Given 03/29/2012 5:00 PM EST 80 mg Given 03/28/2012 6:30 PM EST 80 mg clopidogrel (PLAVIX) tablet 75 mg 75 mg, Oral, DAILY, First dose on Sat03/29/12 at 0900, Until Discontinued, Routine Given 03/31/2012 8:51 AM EST 75 mg Given 03/30/2012 8:24 AM EST 75 mg Given 03/29/2012 9:00 AM EST 75 mg diaZEPam (VALIUM) tablet 5 mg 5 mg, Oral, ONCE, 1 dose, On Sat03/31/12 at 1100, Routine Given 03/31/2012 10:44 AM EST 5 mg DILTiazem (DILACOR XR) XR capsule 300 mg 300 mg, Oral, DAILY, First dose on Sat03/29/12 at 0900, Until Discontinued, Routine Given 03/29/2012 9:00 AM EST 300 mg diphenhydrAMINE (BENADRYL) capsule 25 mg 25 mg, Oral, ONCE, 1 dose, On Sat03/31/12 at 1100, Pre-medication prio to Cath., Routine Given 03/31/2012 10:44 AM EST 25 mg famotidine (PEPCID) tablet 20 mg 20 mg, Oral, 2 TIMES DAILY, First dose on Sat03/28/12 at 2100, Until Discontinued, Routine Given 03/31/2012 8:51 AM EST 20 mg Given 03/30/2012 9:00 PM EST 20 mg Given 03/30/2012 8:25 AM EST 20 mg heparin 25,000 units in dextrose 5% 500 mL infusion 350-7,000 Units/hr (rounded to 7-140 mL/hr), Intravenous, [...] than 145 sec X 2 - call kiln head house operator See Bolus dosing guidance for aPTT values less than 80 seconds under PRN medications , Routine Rate/Dose Change 03/31/2012 10:22 AM EST 750 Units/hr 15 mL/hr Rate/Dose Verify 03/31/2012 1:00 AM EST 850 Units/hr 17 mL /hr Rate/Dose Verify 03/30/2012 4:30 PM EST 850 Units/hr 17 mL /hr iohexol (OMNIPAQUE) 350 mg iodine/mL injection 38,500 mg 38,500 mg (110 mL), Intravenous, ONCE PRN, 1 dose, Starting on Sat03/28/12 at 1921, Until Sat03/28/12 at 1922, Per Protocol, Routine Given 03/28/2012 7:22 PM EST 38,500 mg levothyroxine (SYNTHROID) tablet 50 mcg 50 mcg, Oral, EVERY MORNING, First dose on Sat03/29/12 at 0600, Until Discontinued, Routine Given 03/31/2012 5:40 AM EST 50 mcg Given 03/30/2012 6:19 AM EST 50 mcg Given 03/29/2012 6:00 AM EST 50 mcg metoprolol (LOPRESSOR) tablet 12.5 mg 12.5 mg, Oral, EVERY 6 HOURS SCHEDULED, 6 doses, First dose on Sat03/28/12 at 1815, Last dose on Sat03/29/12 at 1800, - Hold for SBP <90 and HR <55, call H.O, Routine Given 03/29/2012 6:00 PM EST 12 .5 mg Given 03/29/2012 12:00 PM EST 12.5 mg Given 03/28/2012 8:57 PM EST 12.5 mg metoprolol tartrate (LOPRESSOR) tablet 25 mg 25 mg, Oral, EVERY 6 HOURS SCHEDULED, First dose (after last modification) on Sat03/30/12 at 1800, Until Discontinued, Hold for HR<60,SBP<90, Routine Given 03/30/2012 6:23 PM EST 25 mg nitroGLYcerin 50 mg in dextrose 5% 250 mL infusion 0-150 mcg/min (rounded to 0-45 mL/hr), Intravenous, CONTINUOUS, Starting on Sat03/28/12 at 1815, Until Sat03/31/12 at 1836, Please hold for SBP <90 and call H.O, Routine Rate/Dose Verify 03/30/2012 1:02 AM EST 5 mcg/min 1.5 mL/hr Rate/Dose Change 03/29/2012 6:08 AM EST 5 mcg/min 1.5 mL/ hr New Bag 03/28/2012 6:15 PM EST 10 mcg/min 3 mL/hr nitroGLYcerin 50 mg/250 mL (0.2 mg/mL) infusion 1 dose, Starting on Sat03/28/12 at 1747, Until Sat03/28/12 at 1800, ELISE INMAN: Cabinet Override pneumococcal (PNEUMOVAX-23 (PPSV23)) vaccine inejction 0.5 mL 0.5 mL, Intramuscular, PRIOR TO DISCHARGE, 1 dose, Starting on Sat03/30/12 at 1626, Until Sat03/31/12 at 1635, Per Protocol, Hold for fever greater than 38.9C, Routine Given 03/31/2012 4:35 PM EST 0.5 mLs Right Arm sodium chloride 0.9 % flush 5 mL 5 mL, Intravenous, EVERY 12 HOURS, First dose on Sat03/28/12 at 1815, Until Discontinued Given 03/31/2012 5:40 AM EST 5 mLs Given 03/30/2012 6:15 PM EST 5 mLs Given 03/30/2012 6:15 AM EST 5 mLs sodium chloride 0.9% infusion 125 mL/hr, Intravenous, CONTINUOUS, Starting on Sat03/31/12 at 1230, Until Sat03/31/12 at 1630 New Bag 03/31/2012 12:15 PM EST 125 mL/hr 125 mL/hr documented in this encounter Active and Recently Administered Medications Times are shown in EST. Scheduled Medication Order 03/29/2012 03/30/2012 03/31/2012 aspirin EC tablet 81 mg (CANCELED) 81 mg, Oral, DAILY, First dose (after last modification) on Sat03/31/12 at 0900, Until Discontinued, Routine 0850 (Given - Provider: Tonya Anna, JODY) aspirin tablet 325 mg (CANCELED) 325 mg, Oral, DAILY, First dose on Sat03/28/12 at 1830, Until Discontinued, Routine 1537 (Given - Provider: Elise Inman RN - Comment: Rx not stocked) 0824 (Given - Provider: Tonya Anna, JODY) atorvastatin (LIPITOR) tablet 80 mg 80 mg, Oral, EVERY EVENING, First dose on Sat03/28/12 at 1830, Until Discontinued, Routine 1700 (Given - Provider: Elise Inman RN) 1723 (Given - Provider: Tonya Anna, JODY) clopidogrel (PLAVIX) tablet 75 mg (CANCELED) 75 [...] on Sat03/28/12 at 1815, Last dose on 03/29/12 at 1800, - Hold for SBP <90 [...] Comment: infusing) 0615 (Given - Provider: Jordana Gray RN)1815 (Given - Provider: Tonya Anna, RN) 0540 (Given - Provider: Elaina Lopez [...] than 145 sec X 2 - call kiln head house operator See Bolus dosing guidance for aPTT values less than 80 seconds under PRN medications , Routine 0125 (Stopped - Provider: Cherise Pa RN)2026 (Rate/Dose Change - Provider: Cherise Pa RN) 010 (Rate/Dose Verify - Provider: Jordana Gray, JODY)0128 (New Bag - Provider: Jordana Gray, RN)0147 (Rate/Dose Change - Provider: Jordana Gray RN)0800 (Rate/Dose Verify - Provider: Tonya Anna RN)1232 (Rate/Dose Verify - Provider: Tonya Anna RN - Comment: no change)1630 (Rate/Dose Verify - Provider: Tonya Anna RN - Comment: no change in dose, therapeutic level) 0100 (Rate/Dose Verify - Provider: Elaina Lopez RN)1022 (Rate/Dose Change - Provider: Tonya Anna, JODY)1112 (Stopped - Provider: Caitlin Parker) nitroGLYcerin 50 mg in dextrose 5% 250 mL infusion (CANCELED) 0-150 mcg/min (rounded to 0-45 mL/hr), Intravenous, CONTINUOUS, Starting on Sat03/28/12 at 1815, Until Sat03/31/12 at 1836, Please hold for SBP <90 and call H.O, Routine 0608 (Rate/Dose Change - Provider: Cherise Pa RN) 0102 (Rate/Dose Verify - Provider: Jordana Gray, JODY)0900 (Stopped - Provider: Tonya Anna, JODY - Comment: no active chest pain) sodium [...] Sublingual, EVERY 5 MIN PRN, Starting on 03/28/12 at 1747, Until Sat03/31/12 at 1836, Chest [...] (Intra-Procedure) 1130 (New Bag - Provider: Odin Baptiste RN) documented in this encounter Care Teams Lab Animal Technologist Relationship Specialty Start Date End Date Jennifer Gagnon MD [address] [place] [address] [address] [place] [address] PCP - General 03/28/12 documented as of this encounter
--- OUTSIDE RECORDS SUMMARY | 2024-05-08 08:37 | XMS_ITS | Encounter Summary ---
Author Organization [facility] Address [facility] [place] [address] Care Team Providers Care Level Vial Inspector And Tester Name Role Phone Jennifer Gagnon MD Primary Care Provider [phone] Encounter Details Date Type Department Care Team (Latest Contact Info) Description 02/10/2019 9:43 AM EDT - 02/10/2019 11:59 PM EDT Hospital Encounter XRay at [address] [place] [address] Cheng Okeefe MD [facility] [place] [address] Bilateral foot pain; Bilateral bunions Discharge Disposition: Home Social History Tobacco Use [...] on file documented as of this encounter Medications at Time of Discharge Medication Sig Dispensed Refills Start Date End Date meclizine (ANTIVERT) 25 mg Tablet Take 25 mg by mouth Three times daily as needed. oxybutynin (DITROPAN) 5 mg Tablet Take 10 mg by mouth Daily. metoprolol tartrate (LOPRESSOR) 50 mg Tablet Take 50 mg by mouth Daily. atorvastatin (LIPITOR) 80 mg tablet Take 0.5 [...] capsule Take 20 mg by mouth daily. documented as of this encounter Plan of Treatment Not on file documented as of this encounter Procedures Procedure Name Priority Date/Time Associated Diagnosis Comments XR FOOT MIN 3 VIEWS BILAT Routine 02/10/2019 10:10 AM EDT Bilateral foot pain Bilateral bunions documented in this encounter Results * XR Foot Min 3 views Bilat (Generic) (02/10/2019 10:10 AM EDT) Anatomical Region Laterality Modality Foot Bilateral Digital Radiogra phy Impressions 02/10/2019 2:28 PM EDT Bilateral hallux valgus deformities. Thank you for letting us participate in the care of this patient. For questions regarding this report, please contact the number below. ? Narrative 02/10/2019 2:28 PM EDT EXAMINATION: XR FOOT MIN 3 VIEWS BILAT (GENERIC) CLINICAL HISTORY: bilat bunion/foot pain TECHNIQUE: 3 views BILATERAL feet COMPARISON: None FINDINGS: Right foot A hallux valgus deformity is present. There is mild degenerative change at the first metatarsal phalangeal joint. There is no fracture or dislocation. Left foot A hallux valgus deformity is present. There is mild degenerative change at the first metatarsal phalangeal joint. There is no fracture or dislocation. Procedure Note Sandor Goldberg MD - 02/10/2019 EXAMINATION: XR FOOT MIN 3 VIEWS BILAT (GENERIC) CLINICAL HISTORY: bilat bunion/foot pain TECHNIQUE: 3 views BILATERAL feet COMPARISON: None FINDINGS: Right foot A hallux valgus deformity is present. There is mild degenerative change atthe first metatarsal phalangeal joint. There is no fracture or dislocation. Left foot A hallux valgus deformity is present. There is mild degenerative change atthe first metatarsal phalangeal joint. There is no fracture or dislocation. IMPRESSION Bilateral hallux valgus deformities. Thank you for letting us participate in the care of this patient. Forquestions regarding this report, please contact the number below. Cheng Okeefe MD IMG DX ORDERABLES documented in this encounter Visit Diagnoses Diagnosis Bilateral foot pain Pain in limb Bilateral bunions Bunion documented in this encounter Care Teams Level Vial Inspector And Tester Relationship Specialty Start Date End Date Jennifer Gagnon MD [address] [place] [address] PCP - General 03/28/12 documented as of this encounter
--- OUTSIDE RECORDS SUMMARY | 2024-05-08 08:37 | XMS_ITS | Encounter Summary ---
Author Organization [facility] Address [facility] [place] [address] Care Team Providers Care Business Support Coordinator Name Role Phone Jennifer Gagnon MD Primary Care Provider [phone] Encounter Details Date Type Department Care Team (Late st Contact Info) Description 03/28/2012 Orders Only Cardiology at [address] [phone] Jorge L Chowdhury MD [facility] [place] [address] Social History Tobacco Use Types Packs/Day Years Used Date Smoking Tobacco: Never Assessed Sex and Gender Information Value Date Recorded Sex Assigned at Not on file Gender Identity Not on file Sexual Orientation Not on file documented as of this encounter Plan of Treatment Not on file documented as of this encounter Procedures Procedure Name Priority Date/Time Associated Diagnosis Comments EKG 12-LEAD Routine 03/28/2012 6:34 PM EST FILM LIBRARY STORAGE ONLY DX CHEST Routine 03/28/2012 12:09 PM EST documented in this encounter Results * EKG 12-LEAD (03/28/2012 6:34 PM EST) Ventricular rate 56 BPM MUSE SYSTEM Atrial Rate 56 BPM MUSE SYSTEM P-R Interval 176 ms MUSE SYSTEM QRS Duration 86 ms MUSE SYSTEM Q-T Interval 474 ms MUSE SYSTEM QTC Calculated (Bezet) 457 ms MUSE SYSTEM Calculated P [place] 34 degrees MUSE SYSTEM Calculated R [place] 12 degrees MUSE SYSTEM Calculated T [place] 43 degrees MUSE SYSTEM INTERPRETATION Sinus bradycardia T wave abnormality, consider anterior ischemia Abnormal ECG When compared with ECG of 28-MAR-2012 16:07, Inverted T waves have replaced nonspecific T wave abnormality in Anterior leads Confirmed by Jorge L Chowdhury MD (49) on 03/29/2012 5:15:30 PM MUSE SYSTEM 03/28/2012 6:34 PM EST 03/29/2012 5:15 PM EST Unknown ECG ORDERABLES MUSE SYSTEM * FILM LIBRARY- STORAGE ONLY DX CHEST (03/28/2012 12:09 PM EST) Anatomical Region Laterality Modality Other 03/28/2012 12:0 9 PM EST Narrative 07/07/2013 6:45 PM EST This is a non-reportable exam. Procedure Note George Kruse - 07/07/2013 This is a non-reportable exam. Jorge L Chowdhury MD [facility] FILM LIBRARY ORD ERABLES documented in this encounter Visit Diagnoses Not on filedocumented in this encounter Care Teams Business Support Coordinator Relationship Specialty Start Date End Date Jennifer Gagnon MD [address] [place], [place] [address]Y [facility] [address] [place] [address] PCP - General 03/28/12 documented as of this encounter
--- NOTE | 2024-05-08 08:45 | DI.CT_ITS ---
Exam(s) CT BRAIN NECK CTA EXAM: CT BRAIN NECK CTA CLINICAL HISTORY: superior headache, hx of brain aneurysm. TECHNIQUE: Imaging Protocol: Axial CT angiography was performed with multi-slice acquisition and mu lti-planar and/or 3D reconstructions. CONTRAST MATERIAL: Intravenous: Omnipaque 350 contrast volume:70 mL COMPARISON: CT CT HEAD WO from 05/08/2024 FINDINGS: CT Head w: Ventricles and Extra axial spaces: Normal in size and morphology for the patient's age. Hemorrhage: None. Cerebral parenchyma: No evidence of an acute territorial infarct. No mass effect is identified. Midline shift: None. Brainstem/Cerebellum: Normal. Calvarium: Normal. Visualized Paranasal sinuses/Mastoids: Clear. Soft Tissues: Unremarkable. Enhancement: Unremarkable. CTA Neck W: Common Carotid: Right: No dissection, occlusion or significant stenosis. Left: No dissection, occlusion or significant stenosis. There is mild atherosclerotic calcification in the carotid bulb. External Carotid: Right: No occlusion or significant stenosis. Left: No occlusion or significant stenosis. Internal Carotid: Right: No dissection, occlusion or significant stenosis. Left: No dissection, occlusion or significant stenosis. Vertebral Artery: Right: No dissection, occlusion or significant stenosis. Left: No dissection, occlusion or significant stenosis. Lung Apices: Normal. Bones: Within normal limits for the patient's age. Age-appropriate degenerative changes are present. Soft Tissues: Normal. Thyroid gland: The thyroid gland is enlarged. It extends into the superior mediastinum. No discrete m ass is identified. CTA Brain W: Internal Carotid Arteries: There is mild atherosclerotic calcification in the internal carotid arteri es bilaterally. No aneurysm, occlusion or significant stenosis is present. Anterior Cerebral Arteries: Right: No aneurysm, occlusion or significant stenosis. Left: No aneurysm, occlusion or significant stenosis. Middle Cerebral Arteries: Right: No aneurysm, occlusion or significant stenosis. Left: No aneurysm, occlusion or significant stenosis. Posterior Cerebral Arteries: Right: No aneurysm, occlusion or significant stenosis. Left: No aneurysm, occlusion or significant stenosis. Vertebral Arteries: Right: No aneurysm, occlusion or significant stenosis. Left: No aneurysm, occlusion or significant stenosis. Basilar Artery: No aneurysm, occlusion or significant stenosis. IMPRESSION: 1. No large vessel occlusion or significant stenosis on the CT angiography of the head. 2. No acute intracranial process. 3. No occlusion or significant stenosis on the CT angiography of the neck. RADIATION DOSE DELIVERED: 1,186.24mGy.cm Total DLP DATA REPOSITORY: All CT scans at this facility are submitted to the National Radiology Data Registry (NRDR) Dose Index Registry (DIR) with the [employer] (ACR). RADIATION OPTIMIZATION: All CT scans at this facility use at least one of these dose optimization te chniques: automated exposure control; mA and/or kV adjustment per patient size (includes targeted exa ms where dose is matched to clinical indication); or iterative reconstruction.
--- NOTE | 2024-05-08 08:49 | ED.GENADUL_ITS ---
Discharge Plan Disposition Patient Disposition: Home Condition: Good Discharge Details Clinical Impression: Heart palpitations Primary Care Provider: Jennifer Gagnon ED Provider: Tejinder Yeung Home Meds and New Rx's Prescriptions: No Action tetanus and diphther. tox (PF) 5 Lf unit- 2 Lf unit/0.5mL suspension 0.5 ml IM ONCE Qty: 0.5 0RF Rx Instructions: as a single dose aspirin 81 MG tablet,delayed release (DR/EC) 81 mg PO DAILY nitroglycerin [Nitrostat] 0.4 MG tablet, sublingual 0.4 mg Sublingual DIRECTED Qty: 25 Rx Instructions: 1 TAB UNDER YOUR TONGUE EVERY 5 MIN. NEEDED FOR CHEST PAIN atorvastatin 10 mg tablet 10 mg PO QPM Qty: 90 4RF omeprazole 20 mg capsule,delayed release(DR/EC) 20 mg PO DAILY Qty: 90 12RF levothyroxine [Synthroid] 50 mcg tablet 50 mcg PO DAILY Qty: 90 4RF metoprolol succinate 25 mg tablet extended release 24 hr 25 mg PO DAILY Qty: 90 4RF oxybutynin chloride 10 mg tablet extended release 24hr 10 mg PO DAILY Qty: 90 6RF Discharge Instructions Instructions: Palpitations ED Additional Instructions: At this time your workup has returned reassuring. There have been no signs of significant cardiac abnormality here on the monitor. Your multiple heart blood markers have returned normal as is your thyroid function. Please stay well- hydrated at home. Drink plenty of fluids. Follow-up closely with your primary care provider for potential further testing. If you notice any worsening of your symptoms, or any new symptoms such as vomiting, diarrhea, fever, chills, shortness of breath, chest pain, numbness, weakness, or fainting , please return immediately to the emergency department for reevaluation. Please follow up with your primary care provider as soon as possible for reassessment and reevaluation. As always, it was a pleasure participating in your medical care today. Referrals: Jennifer Gagnon MD, [place] [Primary Care Provider] - [facility] General Date/Time Provider Initiated Documentation: 05/08/24 08:34 . HPI Narrative: This is a pleasant 78-year-old female with a past medical history of very distant paroxysmal atrial fibrillation for which she is not anticoagulated, GERD, hypothyroidism, who presents today for palpitations. Patient was having intermittent short episodes of palpitations over the last 2 to 3 months, she was appropriately seen by her primary care provider Dr. Gagnon, and had a very appropriate and thorough workup which included a 14-day event monitor. The event monitor findings are reported below, but did not show any signs of atrial fibrillation, there were some episodes of PVCs, PACs, but no other concerning dysrhythmias. Patient had been doing fine, but then last night she had a few episodes of atypical beats last night that lasted for about an hour. When she woke up the symptoms were gone. She had a very mild headache on the superior aspect of her head this morning which is now also abated. She also had a very mild cough this morning to without any significant productivity. She denies any chest pain or shortness of breath. She denies any significant change in her medications. She denies any syncope or lightheadedness or vision changes. No fever or chills. No neck pain. The patient denies any headache red flags of worst headache of life, thunderclap headache, neck pain, fever, chills, concerning family history of polycystic kidney disease, Marfan syndrome, Matheus- Danlos syndrome, abdominal aortic aneurysm, aortic dissection, or intracranial aneurysm. No other complaints at this time. Related Data Home Medications ?Medication ?Instructions ?Recorded ?Confirmed aspirin 81 mg tablet,delayed 81 mg PO DAILY 10/10/12 05/08/24 release nitroglycerin 0.4 mg sublingual 0.4 mg sublingual DIRECTED #25 01/12/13 05/08/24 tablet (Nitrostat) tab-caps atorvastatin 10 mg tablet 10 mg PO QPM #90 tabs 06/05/23 05/08/24 omeprazole 20 mg capsule,delayed 20 mg PO DAILY #90 tab-caps 06/05/23 05/08/24 release levothyroxine 50 mcg tablet 50 mcg PO DAILY #90 tab-caps 06/18/23 05/08/24 (Synthroid) metoprolol succinate 25 mg 25 mg PO DAILY #90 tab-caps 06/20/23 05/08/24 tablet,extended release 24 hr tetanus and diphther. tox (PF) 5 0.5 ml IM ONCE #0.5 mL 07/18/23 03/10/24 Lf unit-2 Lf unit/0.5 mL IM susp oxybutynin chloride 10 mg 10 mg PO DAILY #90 tabs 07/29/23 05/08/24 tablet,extended release 24 hr Previous Rx's ?Medication ?Instructions ?Recorded atorvastatin 10 mg tablet 10 mg PO QPM #90 tabs 06/05/23 omeprazole 20 mg capsule,delayed 20 mg PO DAILY #90 tab-caps 06/05/23 release levothyroxine 50 mcg tablet 50 mcg PO DAILY #90 tab-caps 06/18/23 (Synthroid) metoprolol succinate 25 mg 25 mg PO DAILY #90 tab-caps 06/20/23 tablet,extended release 24 hr tetanus and diphther. tox (PF) 5 0.5 ml IM ONCE #0.5 mL 07/18/23 Lf unit-2 Lf unit/0.5 mL IM susp oxybutynin chloride 10 mg 10 mg PO DAILY #90 tabs 07/29/23 tablet,extended release 24 hr Allergies Allergy/AdvReac Type Severity Reaction Status Date / Time adhesive AdvReac Intermediate flipped Verified 05/08/24 08:54 out pain meds AdvReac Agitation Uncoded 05/08/24 08:54 General Stated Complaint: Palpitatns IVANNA: 3 Exam Narrative Exam Narrative: 1.Const: Well-nourished, Well-developed, appearing stated age 2.Eyes: PERRL, no conjunctival injection, and symmetrical lids. 3.ENT: Atraumatic external nose and ears. Dry MM. Neck: Symmetric, trachea midline, No thyromegaly. Patient demonstrates good movement of cervical neck. There is no nuchal rigidity, no nuchal tenderness. Patient is able to flex the neck without any difficulty or significant pain. Negative Kernig's and Brudzinski sign. 4.CVS: +S1/S2, Peripheral pulses 2+ and equal in all extremities. Brisk capillary refill in all extremities. 5.RESP: Unlabored respiratory effort. Clear to auscultation bilaterally. No wheezes rales or rhonchi 6.GI: Soft, Nontender/Nondistended, No hepatosplenomegaly. No guarding or rebound. 7.MSK: Normocephalic/Atraumatic, Extremities w/o deformity or ttp No cyanosis or clubbing, Normal movement of all extremities 8.Skin: Warm, Dry. No rashes or lesions. 9.Neuro: cornice maker II-XII grossly intact. Sensation grossly intact, no focal neurologic deficits. 10.Psych: (AAO) x3. Appropriate mood and affect Course Vital Signs Vital signs: Vital Signs Temperature 36.2 C L 05/08/24 08:31 Pulse 65 05/08/24 08:31 Respiratory Rate 16 05/08/24 08:31 Blood Pressure 132/57 L 05/08/24 08:31 Pulse Oximetry 98 05/08/24 08:31 Temperature 36.2 C L 05/08/24 08:31 Temperature Source Temporal Artery Scan 05/08/24 08:31 Pulse 65 05/08/24 08:31 Respiratory Rate 16 05/08/24 08:31 Blood Pressure 132/57 L 05/08/24 08:31 Blood Pressure Position Supine 05/08/24 08:31 Pulse Oximetry 98 05/08/24 08:31 Oxygen Delivery Method Room Air 05/08/24 08:31 Oxygen Flow Rate 0 05/08/24 08:31 Pain Level 5 05/08/24 08:31 Medical Decision Making This is a pleasant 78-year-old female with a past medical history of very distant paroxysmal atrial fibrillation for which she is not anticoagulated, GERD, hypothyroidism, who presents today for palpitations. Patient was having intermittent short episodes of palpitations over the last 2 to 3 months, she was appropriately seen by her primary care provider Dr. Gagnon, and had a very appropriate and thorough workup which included a 14-day event monitor. The event monitor findings are reported below, but did not show any signs of atrial fibrillation, there were some episodes of PVCs, PACs, but no other concerning dysrhythmias. Patient had been doing fine, but then last night she had a few episodes of atypical beats last night that lasted for about an hour. When she woke up the symptoms were gone. She had a very mild headache on the superior aspect of her head this morning which is now also abated. She also had a very mild cough this morning to without any significant productivity. She denies any chest pain or shortness of breath. She denies any significant change in her medications. She denies any syncope or lightheadedness or vision changes. No fever or chills. No neck pain. The patient denies any headache red flags of worst headache of life, thunderclap headache, neck pain, fever, chills, concerning family history of polycystic kidney disease, Marfan syndrome, Matheus- Danlos syndrome, abdominal aortic aneurysm, aortic dissection. However she does have a history of a brain aneurysm noted on her records but she does not recall this. No other complaints at this time. Physical exam demonstrates well-appearing female, slight dry mucous membranes, nontender head, nontender neck. No tachycardia here. Lungs are relatively clear. Differential includes continued PACs or PVCs potentially from thyroid dysfunction or electrolyte abnormality. We will evaluate for this. No chest pain to suggest PE. Potential pneumonia or bronchitis is on the differential. Headache is notably resolved at this point, and she does not have the red flags that would suggest a bleed however looking at her history she does have a history of brain aneurysm which she did not bring up during our initial discussions. We will get CTA imaging for further differentiation here. Will monitor closely and reassess. 12:26 PM Laboratory workup has returned, no white count bandemia or left shift. No tachycardia, significant hypertension or evidence of shock. Electrolytes normal, renal function normal, thyroid function normal, serial troponins normal. No ectopy while here in the ED. Urinalysis shows trace leuk esterase, but only 3-5 WBCs with moderate epithelials. Rare bacteria. Likely secondary to to the epithelials. Will send for culture. Patient has been rehydrated and feels we ll. COVID flu and RSV are negative. Suspect symptoms may be secondary to mild dehydration, mild viral illness, but no evidence of atrial fibrillation, pneumonia on chest x-ray, stroke, bleed, or other significant abnormality. Patient otherwise feels well and would like to go home. Patient stable for discharge with recommendations for continued hydration at home and close follow- up with primary care provider for reassessment. Nonemergent cardiology follow- up may be reasonable, but no evidence of emergent indication at this time. Patient stable for discharge home. Discussed red flags for which to return. No evidence of A-fib or a flutter. I have extensively reviewed the treatment plan and discharge instructions with the patient and their family. I have addressed all patient concerns at this time. The patient and family was made aware of what symptoms to monitor for that would warrant a return to the emergency department. Discussed the plan with the patient and family, they demonstrate verbal understanding and agreement with our assessment and plan at this time. The documentation in this chart was dictated using [employer] dictation software. Please excuse any dictation errors. This is a cardiac event monitor. Patient was monitored for 10 days and 6 hours Predominant rhythm was sinus with an average heart rate of 60. Minimum was 42, maximum 105 There were rare ventricular ectopic beats, several couplets, rare triplets There were occasional atrial premature beats. Self-limited atrial runs occurred. The longest of these was 14 beats in duration There was no atrial fibrillation no high-grade AV block, no pauses greater than 3 seconds Symptoms were reported. These correlated with sinus rhythm in the 70s and 80s, also sinus tachycardia 105/min FINDINGS: MEDIASTINUM: Normal. HEART: Normal. PULMONARY VASCULATURE: Normal. LUNGS: No focal consolidating infiltrates. PLEURAL SPACE: No pleural effusion or pneumothorax. BONE:Within normal limits for the patient's age. OTHER FINDINGS:Normal. IMPRESSION: No acute pulmonary findings. FINDINGS: CT Head w: Ventricles and Extra axial spaces: Normal in size and morphology for the patient's age. Hemorrhage: None. Cerebral parenchyma: No evidence of an acute territorial infarct. No mass effect is identified. Midline shift: None. Brainstem/Cerebellum: Normal. Calvarium: Normal. Visualized Paranasal sinuses/Mastoids: Clear. Soft Tissues: Unremarkable. Enhancement: Unremarkable. CTA Neck W: Common Carotid: Right: No dissection, occlusion or significant stenosis. Left: No dissection, occlusion or significant stenosis. There is mild atherosclerotic calcification in the carotid bulb. External Carotid: Right: No occlusion or significant stenosis. Left: No occlusion or significant stenosis. Internal Carotid: Right: No dissection, occlusion or significant stenosis. Left: No dissection, occlusion or significant stenosis. Vertebral Artery: Right: No dissection, occlusion or significant stenosis. Left: No dissection, occlusion or significant stenosis. Lung Apices: Normal. Bones: Within normal limits for the patient's age. Age-appropriate degenerative changes are present. Soft Tissues: Normal. Thyroid gland: The thyroid gland is enlarged. It extends into the superior me diastinum. No discrete mass is identified. CTA Brain W: Internal Carotid Arteries: There is mild atherosclerotic calcification in the internal carotid arteries bilaterally. No aneurysm, occlusion or significant stenosis is present. Anterior Cerebral Arteries: Right: No aneurysm, occlusion or significant stenosis. Left: No aneurysm, occlusion or significant stenosis. Middle Cerebral Arteries: Right: No aneurysm, occlusion or significant stenosis. Left: No aneurysm, occlusion or significant stenosis. Posterior Cerebral Arteries: Right: No aneurysm, occlusion or significant stenosis. Left: No aneurysm, occlusion or significant stenosis. Vertebral Arteries: Right: No aneurysm, occlusion or significant stenosis. Left: No aneurysm, occlusion or significant stenosis. Basilar Artery: No aneurysm, occlusion or significant stenosis. IMPRESSION: 1. No large vessel occlusion or significant stenosis on the CT angiography of the head. 2. No acute intracranial process. 3. No occlusion or significant stenosis on the CT angiography of the neck. Quality:[facility] Health Related Social Needs: Health related social needs inadequate housing(Z59.1) Health related social needs details someone to talk to [facility] All Active Problems (Updated 05/08/24 @ 12:25 by Tejinder Yeung DO) Heart palpitations (Acute) Stress due to family tension (Acute) Diarrhea (Acute) Peptic reflux disease (Chronic 09/10/13) Incontinence in female (Chronic 09/22/15) UNABLE TO TOLERATE MEDICATION Hypothyroidism (Chronic) H/O goiter Atrial fibrillation (Chronic) paroxysmal; controlled on dilt.; advised no coumadin or EPS 03/25 Atherosclerosis of [place] coronary artery (Chronic) VT at age 31 (?OC's); echo 03/25 ([facility] [place]) EF 65%; MPI 2003-neg/2006-neg. EF 55% 2012 VT, elevated trop; imi Medical History (Updated 05/08/24 @ 12:25 by Tejinder Yeung DO) Neuropathy Knee pain, right Weight loss Skin lesions Bunion of great toe Foot pain Myocardial infarction Reactive depression (situational) Pneumonia, unspecified organism unspecified unilaterally, unspecified part of lung Reactive depression (situational) Indigestion ST elevation (STEMI) myocardial infarction Candidal skin infection 09/20/14 Unspecified fall, subsequent encounter 09/12/17 Hand numbness Vertigo RECURRENT Shoulder joint pain (07/23/13) MRI partial tear times 2. 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 Maternal Grandfather No problems noted. Paternal Grandfather No problems noted. Maternal Grandmother Heart disease Paternal Grandmother Cancer Brother Asthma Daughter No problems noted. Daughter Substance abuse Depression Sister No problems noted. Sister Throat cancer Social History (Updated 07/22/23 @ 12:50 by Gwendolyn Schaefer) Smoking/Tobacco Use Status: Never Second Hand Exposure: No Smoking risk assessment performed?: Yes Alcohol Intake: never Drug use: Never Substance use type: does not use Caregiver/Support person: No Household members: spouse Housing: house Communication Needs: None Do you need help understanding health information?: Rarely Pets and animals: Yes Pets and animals: cat(s) Sexually active: No Do you think of yourself as: straight/heterosexual Current gender identity: female What is your relationship status?: How often do you talk on the phone with friends or family?: three or more times per week How often do you get together with friends or relatives?: twice per week How often do you attend muslim or restorationist services?: 1-3 times per year Do you belong to any clubs or organized social groups?: no Panel score (0-1 are the most socially isolated patients): 2 What type of physical activity do you participate in: walking Duration: 15-30 minutes/day Frequency: 3-4 times per week Radha/Sabianist: None Special radha needs: No Seatbelt use: always Drive intox or ride w/intox petroleum transport driver: No Do you feel safe at home: Yes Do you feel safe in your relationship?: Yes
[2024-05-08 08:52] LABS: Abs Immature Grans 0.01 10^3/uL (0.0-0.06); Absolute Basophil Count 0.05 10^3/uL (0.0-0.2); Absolute Eosinophil Count 0.12 10^3/uL (0.0-0.7); Absolute Neutrophil Count 2.34 10^3/uL (1.2-6.7); Basophils % 1.1 %; Eosinophils % 2.7 %; HCT 42.3 % (36.0-46.0); HGB 14.3 g/dL (11.2-15.7); Immature Grans % 0.2 %; Lymphocytes % 29.4 %; MCH 30.6 pg (27.0-33.0); MCHC 33.8 % (32.0-36.0); MCV 90 fL (80-95); MPV 9.5 fL (8.0-11.0); Monocytes % 13.6 %; Platelet Count 147 10^3/uL (130-400); RBC 4.68 10^6/uL (3.93-5.22); RDW 12.9 % (11.7-14.6); RDW-SD 42.5 fL; WBC 4.42 10^3/uL (4.4-10.8)
[2024-05-08] MEDS: Normal Saline - Diluent 50 ML VIAL IJ (09:01)
[2024-05-08 09:22] LABS: ALT 26 U/L (14-59); AST 35 U/L (15-37); Albumin 3.7 g/dL (3.4-5.0); Alkaline Phosphatase 110 U/L (46-116); Anion Gap 9.2 mmol/L (3-11); BUN 16 mg/dL (7-18); Bilirubin, Total 0.98 mg/dL (0.2-1.0); CO2 25.8 mmol/L (21.0-32.0); CREATININE 1.1 mg/dL (0.55-1.02); Chloride 109 mmol/L (98-107); Estimated GFR 51.11 (mL/min/1.73m2); Glucose 101 mg/dL (74-106); Potassium 4.1 mmol/L (3.5-5.1); Sodium 144 mmol/L (136-145); TSH (W/Ref FT4) 1.88 uIU/mL (0.36-3.74); Total Protein 7.1 g/dL (6.4-8.2); Troponin I 13 ng/L (<or=51)
[2024-05-08 10:04] LABS: INR 1.1 (0.9-1.1); PTT Activated 28.3 sec (23.6-32.8)
[2024-05-08 10:05] LABS: COVID-19 PCR Negative (Negative); Influenza A PCR Negative (Negative); Influenza B PCR Negative (Negative); RSV PCR Negative (Negative)
[2024-05-08 10:06] LABS: Source Nasopharynx
[2024-05-08 10:09] LABS: Troponin I 13 ng/L (<or=51)
[2024-05-08 10:23] LABS: Bilirubin Negative (Negative); Blood Negative (Negative); Clarity Clear (Clear); Glucose Negative (Negative); Ketones Negative (Negative); Leukocyte Esterase Trace (Negative); Nitrite Negative (Negative); Urobilinogen 0.2 mg/dL (Up to 0.2); pH 6.5 (5-8)
[2024-05-08 10:34] LABS: Bacteria Rare HPF (Negative); C & S Indicated? No; Casts Negative LPF (Negative); Crystals Negative HPF (Negative); Epithelial Cells Moderate HPF (Negative); Mucus Negative (Negative); RBC 0-2 HPF (0-2)
[2024-05-08 12:13] LABS: Troponin I 14 ng/L (<or=51)
== END 2024-05-08 12:33 | disposition home or self-care (01) ==
PROVIDERS: Emergency Provider Student in an Organized Health Care Education/Training Program; PCP Family Medicine
DX: R00.2 Palpitations (principal); Z79.899 Other long term (current) drug therapy; Z79.82 Long term (current) use of aspirin; Z86.79 Personal history of other diseases of the circulatory system; K21.9 Gastro-esophageal reflux disease without esophagitis; E03.9 Hypothyroidism, unspecified; I25.10 Atherosclerotic heart disease of native coronary artery without angina pectoris; I25.2 Old myocardial infarction
CPT/HCPCS: 36415; 70496; 70498; 80053; 87637; 93005; 99285; 70450; 71046; 81003; 81015; 84443; 84484; 85025; 85610; 85730; 87086; 93010

== ENCOUNTER 2024-07-30 02:32 | Outpatient (CLI) | payer MEDICARE, SELFPAY ==
[2024-07-30 13:10] LABS: ALT 23 U/L (14-59); AST 30 U/L (15-37); Albumin 3.7 g/dL (3.4-5.0); Alkaline Phosphatase 124 U/L (46-116); Anion Gap 7.1 mmol/L (3-11); BUN 18 mg/dL (7-18); Bilirubin, Total 0.8 mg/dL (0.2-1.0); CO2 28.9 mmol/L (21.0-32.0); Calcium 8.8 mg/dL (8.5-10.1); Chloride 110 mmol/L (98-107); Estimated GFR 56.95 (mL/min/1.73m2); Glucose 89 mg/dL (74-106); Potassium 4.2 mmol/L (3.5-5.1); Sodium 146 mmol/L (136-145); Total Protein 6.5 g/dL (6.4-8.2); Vitamin B12 341 pg/mL (193-986)
== END 2024-07-30 02:33 | disposition home or self-care (01) ==
LOC: LOS 02:32
PROVIDERS: PCP Family Medicine; Visit Provider Family Medicine
DX: E03.9 Hypothyroidism, unspecified (principal); K21.9 Gastro-esophageal reflux disease without esophagitis; I10 Essential (primary) hypertension
CPT/HCPCS: 36415; 80053; 82607; 84443

== ENCOUNTER 2024-09-30 06:29 | Emergency (ER) | payer MEDICARE, SELFPAY ==
[2024-09-30] VITALS (31 sets, daily range): BP systolic 82–112; BP diastolic 35–72; PULSE 105–144; RESP 10–26; TEMP 36.6–36.8; O2SAT 90–100
--- NOTE | 2024-09-30 06:45 | DI.CT_ITS ---
Exam(s) CT ABDOMEN PELVIS W EXAM: CT ABDOMEN PELVIS W CLINICAL HISTORY: abd pain, vomiting TECHNIQUE: Imaging Protocol: Axial computed tomography images with coronal and sagittal reformatted images were created and reviewed. CONTRAST MATERIAL: Intravenous: Omnipaque 350 Contrast volume:75 mL Oral: No COMPARISON: CT CT ABDOMEN PELVIS W from 09/15/2021 FINDINGS: ABDOMEN: Lung Bases: No acute abnormality. Liver: Normal density. No measurable mass. Portal, Superior Mesenteric, and Splenic Veins: Unremarkable. Gallbladder and Biliary Tract: There is layering debris in the dependent portion the gallbladder susp icious for small stones. No biliary ductal dilatation is seen. No CT evidence to suggest acute chol ecystitis. Pancreas: Normal density, no abnormal calcifications or inflammatory process. Spleen: Normal. Adrenals: No masses seen. Kidneys: Normal size, contour and axis. No radiodense stones or obstructive uropathy. There is a tiny hypodensity in the left kidney. It is too small for further characterization but likely reflects a small cyst. Abdominal Aorta: Abdominal portion non-dilated. Atherosclerotic calcification is present. There is m ild ectasias seen in the celiac artery. Bowel: The stomach is incompletely distended limiting evaluation. There is wall thickening of loops of small bowel in the left abdomen suspicious for an enteritis. There is no evidence of pneumatosis. No evidence of bowel obstruction. There is diverticulosis of the colon, but no evidence of acute d iverticulitis. There are fluid-filled loops of small and large bowel. There is no evidence of appen dicitis. Peritoneal Cavity: No ascites, collection or mesenteric inflammatory response. No free air. Lymph Nodes: Within normal limits. Bones: Within normal limits for the patient's age. 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 There is a right convex lumbar scoliosis. Soft Tissues: Unremarkable. PELVIS: Bladder: Symmetric distention, no gross wall thickening. Reproductive Organs: Unremarkable as visualized. Lymph Nodes: Within normal limits. Bones: Within normal limits for the patient's age. IMPRESSION: 1. There is mild wall thickening in loops of small bowel in the left abdomen. Fluid-filled loops of small and large bowel are seen. The findings can be seen with an enteritis. Please correlate clinic ally. 2. Colonic diverticulosis without evidence of acute diverticulitis. 3. Layering densities in the gallbladder suspicious for cholelithiasis. No CT evidence to suggest ac [place] cholecystitis. No biliary ductal dilatation. RADIATION DOSE DELIVERED: 548.94mGy.cm Total DLP DATA REPOSITORY: All CT scans at this facility are submitted to the National Radiology Data Registry (NRDR) Dose Index Registry (DIR) with the [employer] (ACR). RADIATION OPTIMIZATION: All CT scans at this facility use at least one of these dose optimization te chniques: automated exposure control; mA and/or kV adjustment per patient size (includes targeted exa ms where dose is matched to clinical indication); or iterative reconstruction.
--- NOTE | 2024-09-30 06:45 | RT.EKG_ITS ---
APPROVED REPORT Exam: Resting ECG Reason for Exam: rapid heart rate Patient Location: E HR:140 bpm ECG Measurements Heart Rate 140 AXIS CA [id number] P [id number] QRSd 80 QRS 14 QT 285 T -42 QTc 435 Conclusion Atrial flutter with predominant 2:1 AV block...A-rate 272, multiple Ps Repolarization abnormality, prob rate related...ST dep, T neg, tachycardia
[2024-09-30 06:55] LABS: BE (Venous) 2 mmol/L (-2-3); HCO3 (Venous) 26 mmol/L (23-28); Lactate 1.6 mmol/L (<or=2.0); O2 Sat (Venous) 35 %; TCO2 (Venous) 23 mmol/L (24-29); pCO2 (Venous) 41 mmHg (41-51); pH (Venous) 7.41 (7.31-7.41); pO2 (Venous) 22 mmHg
[2024-09-30 06:56] LABS: Abs Immature Grans 0.02 10^3/uL (0.0-0.06); Absolute Basophil Count 0.05 10^3/uL (0.0-0.2); Absolute Eosinophil Count 0.07 10^3/uL (0.0-0.7); Absolute Lymphocyte Count 0.59 10^3/uL (1.2-3.4); Absolute Monocyte Count 0.52 10^3/uL (0.1-0.8); Absolute Neutrophil Count 5.34 10^3/uL (1.2-6.7); Basophils % 0.8 %; Eosinophils % 1.1 %; HCT 44.5 % (36.0-46.0); HGB 15.4 g/dL (11.2-15.7); Immature Grans % 0.3 %; MCH 31.3 pg (27.0-33.0); MCHC 34.6 % (32.0-36.0); MCV 90 fL (80-95); MPV 9.6 fL (8.0-11.0); Monocytes % 7.9 %; Neutrophils % 80.9 %; Platelet Count 148 10^3/uL (130-400); RBC 4.92 10^6/uL (3.93-5.22); RDW-SD 42.8 fL; WBC 6.59 10^3/uL (4.4-10.8)
[2024-09-30] MEDS: Normal Saline 1,000 ML 1000 ML IV (07:04)
[2024-09-30] MEDS: Famotidine 20 MG/2 ML VIAL IVP (07:05)
[2024-09-30] MEDS: Ondansetron 4 MG/2 ML VIAL IVP (07:05)
--- NOTE | 2024-09-30 07:09 | ED.GENADUL_ITS ---
Discharge Plan Disposition Patient Disposition: Home Condition: Stable Discharge Details Clinical Impression: Nausea vomiting and diarrhea, Abdominal pain Primary Care Provider: Jennifer Gagnon ED Provider: Ramon Ram Home Meds and New Rx's Prescriptions: New ondansetron 4 mg tablet,disintegrating 4 mg PO Q8H PRN (Reason: nausea and vomiting) Qty: 30 0RF Continued atorvastatin 10 mg tablet 10 mg PO QPM Qty: 90 4RF levothyroxine [Synthroid] 50 mcg tablet 50 mcg PO DAILY Qty: 90 4RF metoprolol succinate 25 mg tablet extended release 24 hr 25 mg PO DAILY Qty: 90 4RF omeprazole 20 mg capsule,delayed release(DR/EC) 20 mg PO DAILY Qty: 90 12RF oxybutynin chloride 15 mg tablet extended release 24hr 15 mg PO DAILY Qty: 90 6RF aspirin 81 MG tablet,delayed release (DR/EC) 81 mg PO DAILY Discharge Instructions Additional Instructions: Your CAT scan showed evidence of a gastroenteritis which is likely due to a virus. This usually something your body will fight off on its own over the course of few days. Make sure you are taking plenty of fluids to stay hydrated. You can take [id number] Pepto-Bismol as needed for diarrhea. Take the ondansetron as needed for nausea vomiting. If not improving in a few days follow-up with your primary care provider and if you feel significantly more ill or have persistent vomiting despite the nausea medication return to the emergency department for evaluation. HPI General Date/Time Provider Initiated Documentation: 09/30/24 06:47 . Limitations to Documentation: no limitations . Information obtained by: patient . History of Present Illness 79 year old F presents to the emergency department with the chief complaint of n/v, described as moderate, Patient started experiencing this hour(s) (5) and it has been constant. No relieving factors improve symptom(s), No exacerbating factors reported . Patient notes denies chest pain, fever/chills and shortness of breath. Related Data Home Medications ?Medication ?Instructions ?Recorded ?Confirmed aspirin 81 mg tablet,delayed 81 mg PO DAILY 10/10/12 09/30/24 release atorvastatin 10 mg tablet 10 mg PO QPM #90 tabs 08/04/24 09/30/24 levothyroxine 50 mcg tablet 50 mcg PO DAILY #90 tab-caps 08/04/24 09/30/24 (Synthroid) metoprolol succinate 25 mg 25 mg PO DAILY #90 tab-caps 08/04/24 09/30/24 tablet,extended release 24 hr omeprazole 20 mg capsule,delayed 20 mg PO DAILY #90 tab-caps 08/04/24 09/30/24 release oxybutynin chloride 15 mg 15 mg PO DAILY #90 tabs 08/04/24 09/30/24 tablet,extended release 24 hr ondansetron 4 mg disintegrating 4 mg PO Q8H PRN nausea and 09/30/24 tablet vomiting #30 tabs Previous Rx's ?Medication ?Instructions ?Recorded atorvastatin 10 mg tablet 10 mg PO QPM #90 tabs 08/04/24 levothyroxine 50 mcg tablet 50 mcg PO DAILY #90 tab-caps 08/04/24 (Synthroid) metoprolol succinate 25 mg 25 mg PO DAILY #90 tab-caps 08/04/24 tablet,extended release 24 hr omeprazole 20 mg capsule,delayed 20 mg PO DAILY #90 tab-caps 08/04/24 release oxybutynin chloride 15 mg 15 mg PO DAILY #90 tabs 08/04/24 tablet,extended release 24 hr ondansetron 4 mg disintegrating 4 mg PO Q8H PRN nausea and 09/30/24 tablet vomiting #30 tabs Allergies Allergy/AdvReac Type Severity Reaction Status Date / Time adhesive AdvReac Intermediate flipped Verified 09/30/24 06:35 out pain meds AdvReac Agitation Uncoded 09/30/24 06:35 General Stated Complaint: Nausea/Vomit/Diar IVANNA: 3 Review of Systems All systems reviewed & are unremarkable except as noted in HPI and below Constitutional Constitutional: Denies chills, Denies fever(s) and Denies weakness Cardiovascular Cardiovascular: Denies chest pain and Denies dyspnea Respiratory Respiratory: Denies cough and Denies dyspnea Gastrointestinal Gastrointestinal: Reports abdominal pain, Reports nausea and Reports vomiting Neurologic Neurologic: Denies weakness Psychiatric Psychiatric: Denies depression Exam Const General: no acute distress Orientation: alert HENPA Head: normal to inspection Ears: external ears normal General nose exam: external nose normal Mouth: moist mucous membranes Eyes General: appearance normal, both eyes and all related structures Neck Neck: normal visual inspection Resp Effort & Inspection: normal respiratory effort and able to speak in complete sentences Cardio Rate: regular rate GI Palpation: soft, not firm, no guarding and tender Skin General skin exam: no rashes or lesions noted Neuro General: patient alert and patient oriented x3 Extrem General: normal to inspection Psych Mental Status: mental status grossly normal Course Vital Signs Vital signs: Vital Signs Temperature 36.8 C 09/30/24 06:32 Pulse 140 H 09/30/24 06:32 Respiratory Rate 20 09/30/24 06:32 Blood Pressure 96/36 L 09/30/24 06:32 Pulse Oximetry 95 09/30/24 06:32 Temperature 36.8 C 09/30/24 06:32 Temperature Source Oral 09/30/24 06:32 Pulse 140 H 09/30/24 06:32 Respiratory Rate 20 09/30/24 06:32 Blood Pressure 96/36 L 09/30/24 06:32 Pulse Oximetry 95 09/30/24 06:32 Oxygen Delivery Method Room Air 09/30/24 06:32 Oxygen Flow Rate 0 09/30/24 06:32 Lab/Test Results Lab/Test Results: Laboratory Tests Range/Units 09/30/24 06:40 WBC (4.4-10.8) 10^3/uL 6.59 RBC (3.93-5.22) 10^6/uL 4.92 Hgb (11.2-15.7) g/dL 15.4 Hct (36.0-46.0) % 44.5 MCV (80-95) fL 90 MCH (27.0-33.0) pg 31.3 MCHC (32.0-36.0) % 34.6 RDW (11.7-14.6) % 13.0 Plt Count (130-400) 10^3/uL 148 MPV (8.0-11.0) fL 9.6 Immature Gran % % 0.3 Neutrophils % % 80.9 Lymphocytes % % 9.0 Monocytes % % 7.9 Eosinophils % % 1.1 Basophils % % 0.8 Nucleated RBC % (0.0-0.3) % 0.0 Absolute Neutrophils (1.2-6.7) 10^3/uL 5.34 Absolute Lymphocytes (1.2-3.4) 10^3/uL 0.59 L Absolute Monocytes (0.1-0.8) 10^3/uL 0.52 Absolute Eosinophils (0.0-0.7) 10^3/uL 0.07 Absolute Basophils (0.0-0.2) 10^3/uL 0.05 VBG pH (7.31-7.41) 7.41 VBG pCO2 (41-51) mmHg 41 VBG pO2 mmHg 22 VBG HCO3 (23-28) mmol/L 26 VBG Total CO2 (24-29) mmol/L 23 L VBG O2 Saturation % 35 VBG Base Excess (-2-3) mmol/L 2 VBG Lactate (<or=2.0) mmol/L 1.6 Medical Decision Making 79-year-old female with a history of A-fib not on anticoagulation comes in with nausea vomiting starting around 2 AM along with abdominal pain. Denies any chest pain, difficulty breathing or fevers. on arrival she was noted to be in A-fib with rates ranging from 120-140. BP stable. Her abdomen is soft and nondistended. She has tenderness in the right upper and right lower quadrants. No peritoneal signs. I suspect gastroenteritis but given she is also having abdominal pain and her age we will proceed with CBC, CMP, lipase and CT abdomen pelvis to further evaluate. Blood work shows no concerning findings at this time. CT shows evidence of enteritis otherwise no emergent findings. Patient feels significantly better and only has minimal right lower quadrant tenderness which I suspect is from enteritis. The symptoms have only been going on for a day so I do not feel antibiotics are indicated. She will follow-up with her PCP if not proving return precautions given Differential Diagnosis Differential Diagnosis: Cholecystitis, pancreatitis, colitis, gastroenteritis Medical Records Medical records reviewed: Yes I reviewed the patient's medical records. Lab Data Lab results reviewed: Yes I reviewed the patient's lab results. ECG Data Attestation: I personally reviewed and interpreted this ECG (s) as follows: Prior ECG tracings: available for review Interpretation: afib rate of 140 no stemi Quality:SDOH Health Related Social Needs: Health related social needs details someone to talk to [facility] All Active Problems (Updated 09/30/24 @ 08:45 by Ramon Ram MD) Abdominal pain (Acute) Nausea vomiting and diarrhea (Acute) Vitamin B12 deficiency (Acute) Atrial fib/flutter, transient (Acute) Stress due to family tension (Acute) Diarrhea (Acute) Peptic reflux disease (Chronic 09/10/13) Incontinence in female (Chronic 09/22/15) UNABLE TO TOLERATE MEDICATION Hypothyroidism (Chronic) H/O goiter Atrial fibrillation (Chronic) paroxysmal; controlled on dilt.; advised no coumadin or EPS 03/25 Atherosclerosis of cheesh-na coronary artery (Chronic) NE at age 31 (?OC's); echo 03/[address] ([facility] [place]) EF 65%; MPI 2003-neg/2006-neg. EF 55% 2011 NE, elevated trop; imi Medical History (Updated 09/30/24 @ 08:45 by Ramon Ram MD) Neuropathy Knee pain, right Weight loss Skin lesions Bunion of great toe Foot pain Myocardial infarction Reactive depression (situational) Pneumonia, unspecified organism unspecified unilaterally, unspecified part of lung Reactive depression (situational) Indigestion ST elevation (STEMI) myocardial infarction Candidal skin infection 09/20/14 Unspecified fall, subsequent encounter 09/12/17 Hand numbness Vertigo RECURRENT Shoulder joint pain (07/23/13) MRI partial tear times 2. 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 Maternal Grandfather No problems noted. Paternal Grandfather No problems noted. Maternal Grandmother Heart disease Paternal Grandmother Cancer Brother Asthma Daughter No problems noted. Daughter Substance abuse Depression Sister No problems noted. Sister Throat cancer Social History (Updated 07/22/23 @ 12:50 by Gwendolyn Schaefer) Smoking/Tobacco Use Status: Never Second Hand Exposure: No Smoking risk assessment performed?: Yes Alcohol Intake: never Drug use: Never Substance use type: does not use Caregiver/Support person: No Household members: spouse Housing: house Communication Needs: None Do you need help understanding health information?: Rarely Pets and animals: Yes Pets and animals: cat(s) Sexually active: No Do you think of yourself as: straight/heterosexual Current gender identity: female What is your relationship status?: How often do you talk on the phone with friends or family?: three or more times per week How often do you get together with friends or relatives?: twice per week How often do you attend voodoo or anabaptism services?: 1-3 times per year Do you belong to any clubs or organized social groups?: no Panel score (0-1 are the most socially isolated patients): 2 What type of physical activity do you participate in: walking Duration: 15-30 minutes/day Frequency: 3-4 times per week Radha/Zoroastrianism: None Special radha needs: No Seatbelt use: always Drive intox or ride w/intox driver material handler: No Do you feel safe at home: Yes Do you feel safe in your relationship?: Yes
[2024-09-30] MEDS: Ketorolac 15 MG/ML VIAL IVP (07:17)
[2024-09-30] MEDS: Metoprolol CR 50 MG TABCR 25 MG PO (07:18)
[2024-09-30 07:26] LABS: ALT 27 U/L (14-59); AST 34 U/L (15-37); Alkaline Phosphatase 112 U/L (46-116); Anion Gap 9.8 mmol/L (3-11); BUN 18 mg/dL (7-18); Bilirubin, Total 1.4 mg/dL (0.2-1.0); CO2 26.2 mmol/L (21.0-32.0); CREATININE 1.1 mg/dL (0.55-1.02); Calcium 9.4 mg/dL (8.5-10.1); Chloride 107 mmol/L (98-107); Glucose 137 mg/dL (74-106); Lipase 30 U/L (<78); Magnesium 1.8 mg/dL (1.8-2.4); Potassium 3.7 mmol/L (3.5-5.1); Sodium 143 mmol/L (136-145); Total Protein 7.4 g/dL (6.4-8.2)
[2024-09-30 08:06] LABS: Bilirubin Negative (Negative); Blood Negative (Negative); Clarity Clear (Clear); Glucose Negative (Negative); Ketones Negative (Negative); Leukocyte Esterase Trace (Negative); Nitrite Negative (Negative); Specific Gravity 1.015 (1.005-1.025); Urobilinogen 0.2 mg/dL (Up to 0.2)
[2024-09-30] MEDS: Omnipaque 350 MG/ML 100 ML BTL IJ (08:06)
[2024-09-30] MEDS: Normal Saline - Diluent 50 ML VIAL IJ (08:09)
[2024-09-30 08:13] LABS: Bacteria Rare HPF (Negative); C & S Indicated? No; Casts Negative LPF (Negative); Crystals Negative HPF (Negative); Epithelial Cells Few HPF (Negative); Mucus Trace (Negative); RBC Negative HPF (0-2)
== END 2024-09-30 09:24 | disposition home or self-care (01) ==
PROVIDERS: Emergency Medicine; Emergency Provider Emergency Medicine; PCP Family Medicine
DX: R10.11 Right upper quadrant pain (principal); R11.2 Nausea with vomiting, unspecified; R10.31 Right lower quadrant pain
CPT/HCPCS: 99284; 99285; 96375; 96374; 80053; 82805; 83690; 93005; 96361; 74177; 81003; 81015; 83605; 83735; 85025; 93010; J1885; J2405; J3490

== ENCOUNTER 2025-03-17 08:57 | Outpatient (CLI) | payer MEDICARE, SELFPAY | END 2025-03-17 08:58 | disposition home or self-care (01) | PROVIDERS: PCP Family Medicine; Visit Provider Family Medicine | DX: I48.91 Unspecified atrial fibrillation (principal) | CPT/HCPCS: 93246 ==

== ENCOUNTER 2025-04-20 07:23 | Outpatient (CLI) | payer MEDICARE, SELFPAY ==
--- NOTE | 2025-04-20 10:06 | W.CARDEVENT ---
Date of service: 04/20/25 Time of Service: 10:06 Cardiac Event Recorder Referring Provider:: Jennifer Gagnon Indications:: Atrial fibrillation Cardiac Event Note: This is a cardiac event monitor. Patient was monitored for 13 days and 22 hours Predominant rhythm was sinus with an average heart rate of 63. Minimum was 44, maximum 105 There were rare isolated ventricular ectopic beats. There were rare couplets. There were several brief runs of nonsustained ventricular tachycardia, longest was 7 beats in length There were rare isolated atrial premature beats. Self-limited atrial runs occurred. Longest of these was 15 beats in duration There was no atrial fibrillation, no high-grade AV block, no pauses greater than 3 seconds. No symptoms were reported
== END 2025-04-20 07:24 | disposition home or self-care (01) ==
LOC: CARDOPNVT 07:23
PROVIDERS: PCP Family Medicine; Visit Provider Internal Medicine Cardiovascular Disease
DX: I48.91 Unspecified atrial fibrillation (principal); I47.29 Other ventricular tachycardia
CPT/HCPCS: 93248